=== PATIENT | male | born 1960 | race Caucasian/White ===

== ENCOUNTER 2016-05-22 13:01 | Emergency (ER) ==
[2016-05-22] MEDS ORDERED: MORPHINE 4 MG/ML SYRINGE IM STA (13:15)
[2016-05-22] MEDS ORDERED: ZOFRAN 4 MG/2 ML IM STA (13:15)
[2016-05-22] MEDS ORDERED: DECADRON 4 MG/ML SDV IM STA (13:16)
[2016-05-22] MEDS ORDERED: TORADOL IM STA (13:16)
[2016-05-22] MEDS ORDERED: VALIUM SYRINGE IM STA (13:17)
[2016-05-22 13:19] VITALS: BP 149/88; TEMP 98; BMI 42.3
[2016-05-22 13:47] LABS: BASOPHILS # (AUTO) 0.1 K/uL (0-0.2); BASOPHILS % (AUTO) 1.3 % (0.0-3.0); EOSINOPHILS # (AUTO) 0.4 K/ul (0.0-0.7); EOSINOPHILS % (AUTO) 4.4 % (0.0-7.0); HEMATOCRIT 47.8 % (42.0-52.0); HEMOGLOBIN 14.9 g/dl (14.0-18.0); IMMATURE GRANULOCYTE % (AUTO) 0.8 % (0.0-5.0); LYMPHOCYTES # (AUTO) 2.2 K/uL (0.60-3.4); LYMPHOCYTES % (AUTO) 24.2 (10.0-50.0); MEAN CORPUSCULAR HEMOGLOBIN 28.1 pg (27.0-31.0); MEAN CORPUSCULAR HGB CONC 31.2 (31.8-35.4); MEAN CORPUSCULAR VOLUME 90.2 fl (80.0-94.0); MONOCYTES # (AUTO) 0.6 K/uL (0.4-2.0); MONOCYTES % (AUTO) 6.9 (0-10); NEUTROPHILS # (AUTO) 5.7 K/ul (2.0-6.9); NEUTROPHILS % (AUTO) 62.4; PLATELET COUNT 302 10^3/uL (140-440); WHITE BLOOD COUNT 9.15 K/ul (4.2-10.2)
--- NOTE | 2016-05-22 14:02 | CT ---
EXAM: CT ABDOMEN AND PELVIS HISTORY: Bilateral flank pain, history of kidney stones TECHNIQUE: CT abdomen and pelvis without intravenous contrast. Images were reconstructed using 3 m m section thickness. Coronal reformations were prepared. COMPARISON: 05/08/2016 FINDINGS: Diagnostic limitations exist without including enhanced images. Again noted is prominent sized mild ly fatty liver. Spleen within normal limits. Gallbladder is relatively contracted, grossly unremar kable. Pancreas and adrenal glands appear normal. There is bilateral nephrolithiasis with several small calculi seen in each kidney, largest at about 0.35 cm. Stable mild bilateral nonspecific jalyn nephric fat stranding. There is no hydronephrosis or evidence of ureteral obstruction. Left common iliac vein stent again noted. Mild to moderate atherosclerotic disease of the aorta with no aneury smal caliber. Stomach within normal limits. Normal appendix. Bowel gas pattern is unremarkable. Urinary bladder and prostate are within normal limits. No ascites. Mildly prominent fatty bilateral inguinal joan ls are stable. Bones reveal mild scoliosis and early degenerative disc disease or spinal. Lung bas es reveal a few nodules posteriorly on the right one of which is calcified. These nodules are stabl e since at least 01/30/2014 most likely representing granulomas. No pneumoperitoneum. IMPRESSION: 1. Bilateral nephrolithiasis without current hydronephrosis or ureteral obstruction. Redemonstrati on of stable, nonspecific bilateral perinephric fat stranding which may be chronic for the patient. Correlate clinically for any evidence of renal parenchymal or collecting system infection. 2. Stable prominent sized mildly fatty liver.
[2016-05-22 14:07] LABS: ALBUMIN 3.6 g/dL (3.4-5.0); BILIRUBIN,TOTAL 0.31 mg/dL (0.00-1.20); BUN/CREATININE RATIO 17.16; CALCIUM 9.5 mg/dL (8.2-10.2); CREATININE 1.34 mg/dL (0.60-1.10); TOTAL PROTEIN 7.2 g/dL (6.4-8.2)
--- NOTE | 2016-05-22 14:37 | ED.PDOC ---
General ED Provider: Dr. AYLEEN COLE Chief Complaint: Urinary Problem Stated Complaint: BACK PAIN Time Seen by Physician: 13:10 (HISTORY OF RENAL STONE WITH SAME PRESENTATION) Mode of Arrival: Walk-In Information Source: Patient Exam Limitations: No limitations Primary Care Provider: JEFRY MORALES Nursing and Triage Documentation Reviewed and Agree: Yes Musculoskeletal Complaint Exam - Back Pain Complaint/Exam Mechanism of Injury: Reports: No known trauma Onset/Duration: CHRONIC WAS SEEN FOR SAME ISSUE LAST WEEK Symptoms Are: Still present Timing: Constant Initial Severity: Moderate Current Severity: Moderate Character: Reports: Throbbing, Spasmodic Aggravating: Reports: Movements, Lifting, Bending, Walking Alleviating: Reports: Rest, Position Associated Signs and Symptoms: Reports: Flank pain Related History: Reports: Similar episode Cauda Equina Risk Factors: Reports: None Epidural Abcess Risk Factors: Reports: None Related Surgical History: Reports: None Focal Tenderness: No Paraspinal Muscle Tenderness: No Paraspinal Muscle Spasm: No Scoliosis: No Lordosis: No Kyphosis: No SLR Test: Right Negative, Left Negative Hip Motion Testing Pain: Right Negative, Left Negative Focal Weakness: Present: None Focal Sensory Loss: Present: None Gait: Present: Normal Differential Diagnoses: Renal Colic, Strain, Sprain Review of Systems - Review Of Systems Constitutional: Reports: No symptoms Eyes: Reports: No symptoms Ears, Nose, Mouth, Throat: Reports: No symptoms Respiratory: Reports: No symptoms Cardiac: Reports: No symptoms GI: Reports: No symptoms : Reports: No symptoms Musculoskeletal: Reports: Back pain Skin: Reports: No symptoms Neurological: Reports: No symptoms Endocrine: Reports: No symptoms Hematologic/Lymphatic: Reports: No symptoms All Other Systems: Reviewed and Negative Past Medical History - Past Medical History Previously Healthy: No Endocrine: Reports: DM 2, Dyslipidemia Cardiovascular: Reports: Hypertension Respiratory: Reports: COPD, Asthma Hematological: Reports: None Gastrointestinal: Reports: GERD Genitourinary: Reports: Kidney stones Neuro/Psych: Reports: Anxiety, Depression, Bipolar Disorder Musculoskeletal: Reports: None Cancer: Reports: None Other Pertinent Past Medical History: recent right index finger laceration - Surgical History General Surgical History: Reports: None, Orthopedic (SHOULDER ON EACH SIDE), Hernia Repair, Other (EYE - RIGHT, VASECTOMY) - Family History Family History: Reports: None - Social History Smoking Status: Current every day smoker, Heavy tobacco smoker Hx Substance Use: No Alcohol Screening: None Physical Exam - Physical Exam Appearance: Well-appearing, No pain distress, Well-nourished Eyes: BGODAN, EOMI, Conjunctiva clear ENT: Ears normal, Nose normal, Oropharynx normal Respiratory: Airway patent, Breath sounds clear, Breath sounds equal, Respirations nonlabored Cardiovascular: RRR, Pulses normal, No rub, No murmur GI/: Soft, Nontender, No masses, Bowel sounds normal, No Organomegaly Musculoskeletal: Normal strength, ROM intact, No edema, No calf tenderness Skin: Warm, Dry, Normal color Neurological: Sensation intact, Motor intact, Reflexes intact, Cranial nerves intact, Alert, Oriented Psychiatric: Affect appropriate, Mood appropriate Interpretation - Radiology Interpretation Radiology Interpretation By: Radiologist Radiology Results: No acute changes Critical Care Note - Critical Care Note Total Time (mins): 0 Course - Course Hematology/Chemistry: 05/22/16 13:45 05/22/16 13:45 Orders, Labs, Meds: Lab Review 05/22/16 13:45 WBC 9.15 RBC 5.30 Hgb 14.9 Hct 47.8 MCV 90.2 MCH 28.1 MCHC 31.2 L RDW Coeff of Christiano 13.5 Plt Count 302 Immature Gran % (Auto) 0.8 Neut % (Auto) 62.4 Lymph % (Auto) 24.2 [place] % (Auto) 6.9 Eos % (Auto) 4.4 Baso % (Auto) 1.3 Immature Gran # (Auto) 0.1 Neut # 5.7 Lymph # 2.2 [place] # 0.6 Eos # 0.4 Baso # 0.1 Sodium 138 Potassium 5.0 Chloride 99 Carbon Dioxide 29 Anion Gap 15.0 BUN 23 H Creatinine 1.34 H Estimated GFR (MDRD) 56.00 BUN/Creatinine Ratio 17.16 Glucose 243 H Calcium 9.5 Total Bilirubin 0.31 AST 15 ALT 24 Alkaline Phosphatase 66 Total Protein 7.2 Albumin 3.6 Globulin 3.6 Albumin/Globulin Ratio 1.00 Orders Category Date Time Status CBC W/ AUTO DIFF Stat LAB 05/22/16 13:45 Completed COMPREHENSIVE METABOLIC PANEL Stat LAB 05/22/16 13:45 Completed URINALYSIS C & S IF INDICATED Stat LAB 05/22/16 13:15 Uncollected Dexamethasone 4 mg/ml Inj [Decadron 4 mg/ml Sdv] MEDS 05/22/16 13:16 Discontinued 4 mg IM ONCE STA Diazepam Syringe [Valium Syringe] MEDS 05/22/16 13:17 Discontinued 5 mg IM ONCE STA Morphine Sulfate [Morphine 4 mg/ml Syringe] MEDS 05/22/16 13:15 Discontinued 4 mg IM ONCE STA CT ABD/PEL WO RENAL STONE PROT Stat RADS 05/22/16 13:15 Completed Medications Discontinued Medications Generic Name Dose Route Start Last Admin Trade Name Steven PRN Reason Stop Dose Admin Dexamethasone Sodium Phosphate 4 mg 05/22/16 13:16 05/22/16 13:40 Decadron 4 Mg/Ml Sdv IM 05/22/16 13:17 4 mg ONCE STA Administration Diazepam 5 mg 05/22/16 13:17 05/22/16 13:42 Valium Syringe IM 05/22/16 13:18 5 mg ONCE STA Administration Morphine Sulfate 4 mg 05/22/16 13:15 05/22/16 13:41 Morphine 4 Mg/Ml Syringe IM 05/22/16 13:16 4 mg ONCE STA Administration Vital Signs: Temp Pulse Resp BP Pulse Ox 05/22/16 13:06 98 F 89 20 149/88 H 93 L Departure - Departure Time of Disposition: 14:37 Disposition: HOME SELF-CARE Discharge Problem: Back pain, Calculus of kidney Instructions: Chronic Back Pain (ED), Renal Colic (ED), Kidney Stones (ED), Flank Pain (ED) Condition: Good Pt referred to PMD for follow-up: No Additional Instructions: Please call your Family Physician as soon as possible to schedule a follow-up appointment. Allergies/Adverse Reactions: Allergies codeine Adverse Reaction (Verified 05/22/16 13:03) metformin Adverse Reaction (Verified 05/22/16 13:03) Home Medications: Ambulatory Orders Alprazolam [Xanax] 1 mg PO QID 10/31/13 Aspirin [Aspirin Chewable] 81 mg PO DAILYWM 10/31/13 Benazepril/Hydrochlorothiazide [Benazepril-Hctz 20-12.5 mg Tab] 1 each PO DAILY 10/31/13 Budesonide/Formoterol Fumarate [Symbicort 160-4.5 Mcg Inhaler] 2 inh INH BID Citalopram Hydrobromide [Celexa] 40 mg PO DAILY 10/31/13 Esomeprazole Magnesium [Nexium] 20 mg PO DAILY 10/31/13 Fenofibrate 145 mg PO DAILY 10/31/13 Hydrochlorothiazide 12.5 mg PO DAILY 10/31/13 Insulin Glargine,Hum.rec.anlog [Lantus] 74 unit SQ BEDTIME 10/31/13 Quetiapine Fumarate [Seroquel] 300 mg PO BEDTIME 10/31/13 Trazodone HCl 150 mg PO BEDTIME 10/31/13 Warfarin Sodium [Coumadin] 3 mg PO EVERY OTHER DAY 10/31/13 Tizanidine HCl [Zanaflex] 4 mg PO PRN PRN 01/30/14 Magnesium Oxide [Magnesium] 500 mg PO DAILY 01/07/16 Ibuprofen [Motrin] 800 mg PO Q8H PRN #30 tablet 01/20/16 Albuterol Sulfate [Ventolin Hfa] 2 puff IH TID PRN 05/22/16 Hydrocodone/Acetaminophen [[place]o 10-325 Tablet] 7.5 each PO Q6HR PRN 05/22/16 Warfarin Sodium [Coumadin] 2.5 mg PO EVERY OTHER DAY 05/22/16 Disposition Discussed With: Patient, Family
== END 2016-05-22 14:50 | disposition home or self-care (01) ==
LOC: ED 13:01
DX: N20.0 Calculus of kidney (principal); E11.9 Type 2 diabetes mellitus without complications; E78.5 Hyperlipidemia, unspecified; I10 Essential (primary) hypertension; Z87.442 Personal history of urinary calculi; F17.210 Nicotine dependence, cigarettes, uncomplicated; Z79.01 Long term (current) use of anticoagulants; Z79.899 Other long term (current) drug therapy
CPT/HCPCS: 36415; 74176; 80053; 85025; 96372; 99283

== ENCOUNTER 2016-05-27 07:04 | Outpatient (CLI) | payer OTHER | END 2016-05-27 07:05 | disposition home or self-care (01) | LOC: LAB 07:04 | PROVIDERS: ATTEND Nurse Practitioner | DX: I82.409 Acute embolism and thrombosis of unspecified deep veins of unspecified lower extremity (principal) | CPT/HCPCS: 36415; 85610 ==

== ENCOUNTER 2016-07-02 08:19 | Outpatient (CLI) ==
[2016-07-02 08:55] LABS: PROTHROMBIN TIME 22.5 SEC (9.3-11.0)
== END 2016-07-02 08:20 | disposition home or self-care (01) ==
LOC: LAB 08:19
PROVIDERS: ATTEND Nurse Practitioner
DX: I82.409 Acute embolism and thrombosis of unspecified deep veins of unspecified lower extremity (principal)
CPT/HCPCS: 36415; 85610

== ENCOUNTER 2016-07-29 18:11 | Outpatient (CLI) | END 2016-07-29 18:12 | LOC: AMBL 18:11 | PROVIDERS: ATTEND Emergency Medicine | DX: R55 Syncope and collapse (principal); M25.512 Pain in left shoulder; R07.9 Chest pain, unspecified; M79.662 Pain in left lower leg; W19.XXXA Unspecified fall, initial encounter ==

== ENCOUNTER 2016-08-21 10:13 | Emergency (ER) ==
[2016-08-21 10:26] VITALS: BP 115/67; TEMP 98.1; BMI 37.7
[2016-08-21] MEDS ORDERED: SOLU-MEDROL 125 MG IVP STA (12:27)
[2016-08-21] MEDS ORDERED: DUONEB NEB STA (12:27)
[2016-08-21 12:44] LABS: BASOPHILS # (AUTO) 0.1 K/uL (0-0.2); BASOPHILS % (AUTO) 1.1 % (0.0-3.0); EOSINOPHILS # (AUTO) 0.5 K/ul (0.0-0.7); EOSINOPHILS % (AUTO) 4.3 % (0.0-7.0); HEMATOCRIT 41.4 % (42.0-52.0); HEMOGLOBIN 13.5 g/dl (14.0-18.0); IMMATURE GRANULOCYTE % (AUTO) 0.5 % (0.0-5.0); LYMPHOCYTES # (AUTO) 1.7 K/uL (0.60-3.4); LYMPHOCYTES % (AUTO) 15.3 (10.0-50.0); MEAN CORPUSCULAR HEMOGLOBIN 28.8 pg (27.0-31.0); MEAN CORPUSCULAR HGB CONC 32.6 (31.8-35.4); MEAN CORPUSCULAR VOLUME 88.3 fl (80.0-94.0); MONOCYTES # (AUTO) 0.9 K/uL (0.4-2.0); MONOCYTES % (AUTO) 7.7 (0-10); NEUTROPHILS % (AUTO) 71.1; PLATELET COUNT 318 10^3/uL (140-440); RED BLOOD COUNT 4.69 10^6/ul (4.70-6.10); WHITE BLOOD COUNT 11.24 K/ul (4.2-10.2)
[2016-08-21 12:50] LABS: ABG BASE EXCESS 5 (-2.0-2.0); ABG HCO3 29.8 (22.0-26.0); ABG PCO2 48.9 mmHg (35-45); ABG PH 7.393 (7.35-7.45); ABG TCO2 31 (22.0-28.0)
[2016-08-21 13:20] LABS: ALANINE AMINOTRANSFERASE 16 U/L (12-78); ALBUMIN 3.2 g/dL (3.4-5.0); ALBUMIN/GLOBULIN RATIO 0.84; ALKALINE PHOSPHATASE 58 U/L (50-136); ANION GAP 12.5; ASPARTATE AMINO TRANSFERASE 13 U/L (15-37); BILIRUBIN,TOTAL 0.24 mg/dL (0.00-1.20); BLOOD UREA NITROGEN 14 mg/dL (7-18); BUN/CREATININE RATIO 10.37; CALCIUM 9.5 mg/dL (8.2-10.2); CARBON DIOXIDE 27 mmol/L (21-32); CHLORIDE 100 mmol/L (98-107); CREATINE KINASE 142 U/L; CREATININE 1.35 mg/dL (0.60-1.10); GLUCOSE 247 mg/dL (70-100); POTASSIUM 4.5 mmol/L (3.5-5.1); SODIUM 135 mmol/L (136-145)
--- NOTE | 2016-08-21 13:56 | CT ---
EXAM: CT chest without contrast HISTORY: Shortness of breath COMPARISON: None TECHNIQUE: Serial axial images of the chest were obtained from the lung apices to the upper abdomen without contrast. These were viewed in multiple planes. FINDINGS: The thyroid is normal. The visualized vessels are unremarkable without aneurysm or steno sis. The heart is normal in size without pericardial effusion. There are scattered nonenlarged med iastinal and hilar lymph nodes. Calcified subcarinal and hilar lymph nodes are present. There is no pneumothorax or pleural effusion. There is bilateral lower lobe airway thickening with mild central lobular ground-glass in the right lower lobe and minimally in the left lower lobe. The re is minimal peripheral ground-glass noted in the left upper lobe on image 16. No discrete pulmona ry nodule, consolidation or mass is identified. The airways are patent. The osseous structures demonstrate a left shoulder arthroplasty. The vertebral bodies demonstrate s cattered degenerative disease. The soft tissues in the upper abdomen are unremarkable. IMPRESSION: 1. Mild lower lobe predominant small airways thickening and central lobular ground-glass nodularity consistent with small airways infection. 2. No discrete consolidation, nodule or mass. 3. Sequela of old granulomatous disease. 4. Mild degenerative disease of the spine.
[2016-08-21 14:11] LABS: FLU INTERNAL QC INTERNAL QC VALID; RAPID FLU A NEGATIVE (NEGATIVE); RAPID FLU B NEGATIVE (NEGATIVE)
[2016-08-21] MEDS ORDERED: LIDOCAINE 1 % AMP 5 ML (SUTURES) IM STA ×2 (14:18→14:23)
[2016-08-21] MEDS ORDERED: ROCEPHIN IM STA (14:18)
[2016-08-21] MEDS ORDERED: ROCEPHIN 1 GM in SODIUM CHLORIDE 50 ML IV STA (14:23)
[2016-08-21] MEDS ORDERED: ROCEPHIN ONE (14:26)
[2016-08-21 14:30] LABS: CREATINE KINASE MB 2.9 ng/ml (0.0-3.6)
--- NOTE | 2016-08-21 14:36 | ED.PDOC ---
General ED Provider: Dr. AYLEEN COLE Chief Complaint: Respiratory Complaint Stated Complaint: cough, wheez Time Seen by Physician: 10:30 Mode of Arrival: Wheelchair Information Source: Patient Exam Limitations: No limitations Primary Care Provider: JEFRY MORALES Nursing and Triage Documentation Reviewed and Agree: Yes Respiratory Complaint Exam - Respiratory Complaint/Exam Onset/Duration: 1 week smokes heavily Symptoms Are: Still present Timing: Intermittent Initial Severity: Moderate Current Severity: Moderate Location: Throat, Chest Character: Reports: Non-productive cough Aggravating: Reports: None Alleviating: Reports: Bronchodilators, Spontaneous resolution Associated Signs and Symptoms: Reports: Wheezing, Sore throat Related History: Reports: Similar episode History of Healthcare-Acquired Pneumonia: No Related Surgical History: Reports: None Pulmonary Embolism Risk Factors: Smoking Cardiac Risk Factors: Reports: CAD, Elevated lipids, Diabetes, Hypertension Pseudomonas Risk Factors: Reports: None Tuberculosis Risk Factors: Reports: None Status Asthmaticus Risk Factors: Reports: None Home Oxygen Use: No Recent Stress Test: No Recent Echo/LV Function: No Current Antibiotic Use: No Current Asthma Medication Use: No Respiratory Distress: None Inadequate Respiratory Effort: No Dysphagia Present: No Stridor Present: No JVD Present: No Accessory Muscle Use: No Retractions: Not Present Diminished Breath Sounds: No Sinus Tenderness: None Grunting Respirations: No Kussmaul Respirations: No Differential Diagnoses: Pneumonia, Bronchitis Review of Systems - Review Of Systems Constitutional: Reports: Malaise, Weakness Eyes: Reports: No symptoms Ears, Nose, Mouth, Throat: Reports: No symptoms Respiratory: Reports: Cough, Wheezing Cardiac: Reports: No symptoms GI: Reports: No symptoms : Reports: No symptoms Musculoskeletal: Reports: No symptoms Skin: Reports: No symptoms Neurological: Reports: No symptoms Endocrine: Reports: No symptoms Hematologic/Lymphatic: Reports: No symptoms All Other Systems: Reviewed and Negative Past Medical History - Past Medical History Previously Healthy: No Endocrine: Reports: DM 2, Dyslipidemia Cardiovascular: Reports: Hypertension Respiratory: Reports: COPD, Asthma Hematological: Reports: None Gastrointestinal: Reports: GERD Genitourinary: Reports: Kidney stones Neuro/Psych: Reports: Anxiety, Depression, Bipolar Disorder Musculoskeletal: Reports: None Cancer: Reports: None Other Pertinent Past Medical History: recent right index finger laceration - Surgical History General Surgical History: Reports: None, Orthopedic (SHOULDER ON EACH SIDE), Hernia Repair, Other (EYE - RIGHT, VASECTOMY) - Family History Family History: Reports: None - Social History Smoking Status: Current every day smoker, Heavy tobacco smoker Hx Substance Use: No Alcohol Screening: None Physical Exam - Physical Exam Appearance: Well-appearing, No pain distress, Well-nourished Eyes: BOGDAN, EOMI, Conjunctiva clear ENT: Ears normal, Nose normal, Oropharynx normal Respiratory: Wheezes Cardiovascular: RRR, Pulses normal, No rub, No murmur GI/: Soft, Nontender, No masses, Bowel sounds normal, No Organomegaly Musculoskeletal: Normal strength, ROM intact, No edema, No calf tenderness Skin: Warm, Dry, Normal color Neurological: Sensation intact, Motor intact, Reflexes intact, Cranial nerves intact, Alert, Oriented Psychiatric: Affect appropriate, Mood appropriate Interpretation - Radiology Interpretation Radiology Interpretation By: Radiologist Radiology Results: No acute changes Critical Care Note - Critical Care Note Total Time (mins): 0 Course - Course Hematology/Chemistry: 08/21/16 12:35 08/21/16 12:35 Orders, Labs, Meds: Lab Review 08/21/16 08/21/16 08/21/16 12:35 12:40 13:00 WBC 11.24 H RBC 4.69 L Hgb 13.5 L Hct 41.4 L MCV 88.3 MCH 28.8 MCHC 32.6 RDW Coeff of Christiano 13.6 Plt Count 318 Immature Gran % (Auto) 0.5 Neut % (Auto) 71.1 Lymph % (Auto) 15.3 [place] % (Auto) 7.7 Eos % (Auto) 4.3 Baso % (Auto) 1.1 Immature Gran # (Auto) 0.1 Neut # 8.0 H Lymph # 1.7 [place] # 0.9 Eos # 0.5 Baso # 0.1 D-Dimer (Manual) 416.13 Puncture Site R rad O2 Saturation 94.0 L ABG pH 7.393 ABG pCO2 48.9 H ABG pO2 74.0 L ABG HCO3 29.8 H ABG Total CO2 31 H ABG Base Excess 5 H Florentin Test + FiO2 % 21.0 Sodium 135 L Potassium 4.5 Chloride 100 Carbon Dioxide 27 Anion Gap 12.5 BUN 14 Creatinine 1.35 H Estimated GFR (MDRD) 55.00 BUN/Creatinine Ratio 10.37 Glucose 247 H Lactic Acid Calcium 9.5 Total Bilirubin 0.24 AST 13 L ALT 16 Alkaline Phosphatase 58 Total Creatine Kinase 142 CK-MB (CK-2) 2.9 CK-MB (CK-2) % 2.17699 Troponin I < 0.0100 Total Protein 7.0 Albumin 3.2 L Globulin 3.8 Albumin/Globulin Ratio 0.84 Influenza A (Rapid) Negative Influenza B (Rapid) Negative 08/21/16 13:15 WBC RBC Hgb Hct MCV MCH MCHC RDW Coeff of Christiano Plt Count Immature Gran % (Auto) Neut % (Auto) Lymph % (Auto) [place] % (Auto) Eos % (Auto) Baso % (Auto) Immature Gran # (Auto) Neut # Lymph # [place] # Eos # Baso # D-Dimer (Manual) Puncture Site O2 Saturation ABG pH ABG pCO2 ABG pO2 ABG HCO3 ABG Total CO2 ABG Base Excess Florentin Test FiO2 % Sodium Potassium Chloride Carbon Dioxide Anion Gap BUN Creatinine Estimated GFR (MDRD) BUN/Creatinine Ratio Glucose Lactic Acid 8.8 Calcium Total Bilirubin AST ALT Alkaline Phosphatase Total Creatine Kinase CK-MB (CK-2) CK-MB (CK-2) % Troponin I Total Protein Albumin Globulin Albumin/Globulin Ratio Influenza A (Rapid) Influenza B (Rapid) Orders Category Date Time Status ABG DRAW REQUEST Stat CARDIO 08/21/16 12:26 Completed EKG-(ED ONLY) Stat CARDIO 08/21/16 12:27 Completed NEBULIZER TREATMENT Stat CARDIO 08/21/16 12:28 Completed ED IV/MEDIPORT/POWERPORT .ONCE EMERGENCY 08/21/16 12:27 Active ABG Stat LAB 08/21/16 12:40 Completed BLOOD CULTURE Stat LAB 08/21/16 13:15 Received CBC W/ AUTO DIFF Stat LAB 08/21/16 12:35 Completed COMPREHENSIVE METABOLIC PANEL Stat LAB 08/21/16 12:35 Results CREATINE KINASE Stat LAB 08/21/16 12:35 Results D-DIMER Stat LAB 08/21/16 12:35 Completed LACTIC ACID Stat LAB 08/21/16 13:15 Completed MOLECULAR GROUP A STREP Stat LAB 08/21/16 13:00 Results RAPID FLU A/B Stat LAB 08/21/16 13:00 Completed STREP SCREEN Stat LAB 08/21/16 13:00 Results TROPONIN I Stat LAB 08/21/16 12:35 Results 0.9 % Sodium Chloride [Saline Flush] MEDS 08/21/16 12:27 Active 1 syr IVF PRN PRN Ceftriaxone Sodium [Rocephin] MEDS 08/21/16 14:26 Discontinued 1 gm .ROUTE .STK-MED ONE Ceftriaxone Sodium [Rocephin] 1 gm MEDS 08/21/16 14:23 Ordered 0.9 % Sodium Chloride [Sodium Chloride] 50 ml IV ONCE Ipratropium/Albuterol Neb [Duoneb] MEDS 08/21/16 12:27 Discontinued 1 vial NEB ONCE STA Methylprednisolone Sod Succ/Pf [Solu-Medrol 125 mg] MEDS 08/21/16 12:27 Discontinued [address]P ON[address] CHEST W/O CONTRAST Stat RADS 08/21/16 12:25 Completed Medications Generic Name Dose Route Start Last Admin Trade Name Freq PRN Reason Stop Dose Admin Ceftriaxone Sodium 1 gm/ 50 mls @ 75 mls/hr 08/21/16 14:23 Sodium Chloride IV 08/21/16 15:02 ONCE STA Sodium Chloride 1 syr 08/21/16 12:27 08/21/16 13:36 Saline Flush IVF 1 syr PRN PRN Administration To flush IV Discontinued Medications Generic Name Dose Route Start Last Admin Trade Name Freq PRN Reason Stop Dose Admin Albuterol/Ipratropium 1 vial 08/21/16 12:27 08/21/16 12:42 Duoneb NEB 08/21/16 12:28 1 vial ONCE STA Administration Methylprednisolone Sodium Succinate 125 mg 08/21/16 12:27 08/21/16 13:33 Solu-Medrol 125 Mg IVP 08/21/16 12:28 125 mg ONCE STA Administration Vital Signs: Temp Pulse Resp BP Pulse Ox 08/21/16 10:21 98.1 F 85 20 115/67 85 L Departure - Departure Time of Disposition: 14:36 Disposition: HOME SELF-CARE Discharge Problem: Bronchitis Chronic obstructive pulmonary disease Qualifiers: COPD type: unspecified COPD Qualifier Code: (J44.9) Chronic obstructive pulmonary disease, unspecified Instructions: COPD (Chronic Obstructive Pulmonary Disease) (ED), Acute Bronchitis (ED), Wheezing (ED), Bronchospasm (ED), How Your Lungs Work (ED) Condition: Good Pt referred to PMD for follow-up: No Additional Instructions: Please call your Family Physician as soon as possible to schedule a follow-up appointment. Prescriptions: Amoxicillin 500 mg PO Q6HR #30 tablet Amoxicillin 500 mg PO Q8HR #21 tablet Prednisone 40 mg PO DAILYWM #7 tablet Allergies/Adverse Reactions: Allergies codeine Adverse Reaction (Verified 05/22/16 13:03) guaifenesin [From Mucinex] Adverse Reaction (Verified 08/21/16 10:17) metformin Adverse Reaction (Verified 05/22/16 13:03) Home Medications: Ambulatory Orders Alprazolam [Xanax] 1 mg PO QID 10/31/13 Aspirin [Aspirin Chewable] 81 mg PO DAILYWM 10/31/13 Budesonide/Formoterol Fumarate [Symbicort 160-4.5 Mcg Inhaler] 2 inh INH BID Citalopram Hydrobromide [Celexa] 40 mg PO DAILY 10/31/13 Esomeprazole Magnesium [Nexium] 20 mg PO DAILY 10/31/13 Fenofibrate 145 mg PO DAILY 10/31/13 Hydrochlorothiazide 12.5 mg PO DAILY 10/31/13 Insulin Glargine,Hum.rec.anlog [Lantus] 74 unit SQ BEDTIME 10/31/13 Quetiapine Fumarate [Seroquel] 300 mg PO BEDTIME 10/31/13 Trazodone HCl 150 mg PO BEDTIME 10/31/13 Warfarin Sodium [Coumadin] 3 mg PO EVERY OTHER DAY 10/31/13 Tizanidine HCl [Zanaflex] 4 mg PO PRN PRN 01/30/14 Magnesium Oxide [Magnesium] 500 mg PO DAILY 01/07/16 Ibuprofen [Motrin] 800 mg PO Q8H PRN #30 tablet 01/20/16 Albuterol Sulfate [Ventolin Hfa] 2 puff IH TID PRN 05/22/16 Hydrocodone/Acetaminophen [[place] 10-325 Tablet] 7.5 each PO Q6HR PRN 05/22/16 Warfarin Sodium [Coumadin] 2.5 mg PO EVERY OTHER DAY 05/22/16 Amoxicillin 500 mg PO Q6HR #30 tablet 08/21/16 Amoxicillin 500 mg PO Q8HR #21 tablet 08/21/16 Benazepril HCl 40 mg PO DAILY 08/21/16 Prednisone 40 mg PO DAILYWM #7 tablet 08/21/16 Vitamin E 2,000 unit PO DAILY 08/21/16
== END 2016-08-21 15:15 | disposition home or self-care (01) ==
LOC: ED 10:13
DX: J44.0 Chronic obstructive pulmonary disease with (acute) lower respiratory infection (principal); J20.9 Acute bronchitis, unspecified; F17.210 Nicotine dependence, cigarettes, uncomplicated; I25.10 Atherosclerotic heart disease of native coronary artery without angina pectoris; E78.5 Hyperlipidemia, unspecified; E11.9 Type 2 diabetes mellitus without complications; I10 Essential (primary) hypertension; Z79.01 Long term (current) use of anticoagulants; Z79.899 Other long term (current) drug therapy
CPT/HCPCS: 36415; 80053; 82550; 82553; 82803; 83605; 84484; 85025; 85379; 87040; 87651; 87804; 87880; 93005; 93010; 94640; 96365; 96375; 99283

== ENCOUNTER 2016-08-25 09:50 | Outpatient (CLI) | END 2016-08-25 09:51 | disposition home or self-care (01) | LOC: LAB 09:50 | PROVIDERS: ATTEND Nurse Practitioner | DX: Z51.81 Encounter for therapeutic drug level monitoring (principal); Z79.01 Long term (current) use of anticoagulants; I82.409 Acute embolism and thrombosis of unspecified deep veins of unspecified lower extremity | CPT/HCPCS: 36415; 85610 ==

== ENCOUNTER 2016-11-11 06:49 | Outpatient (CLI) | payer OTHER ==
[2016-11-11 07:24] LABS: PROTHROMBIN TIME 24.3 SEC (9.3-11.0)
== END 2016-11-11 06:50 | disposition home or self-care (01) ==
LOC: LAB 06:49
PROVIDERS: ATTEND Nurse Practitioner
DX: Z51.81 Encounter for therapeutic drug level monitoring (principal); Z79.01 Long term (current) use of anticoagulants; E11.40 Type 2 diabetes mellitus with diabetic neuropathy, unspecified; I82.409 Acute embolism and thrombosis of unspecified deep veins of unspecified lower extremity
CPT/HCPCS: 36415; 83036; 85610

== ENCOUNTER 2016-12-03 11:50 | Outpatient (CLI) ==
[2016-12-03 12:20] LABS: PROTHROMBIN TIME 29.4 SEC (9.3-11.0)
== END 2016-12-03 11:51 | disposition home or self-care (01) ==
LOC: LAB 11:50
PROVIDERS: ATTEND Nurse Practitioner
DX: Z51.81 Encounter for therapeutic drug level monitoring (principal); Z79.01 Long term (current) use of anticoagulants; I82.409 Acute embolism and thrombosis of unspecified deep veins of unspecified lower extremity
CPT/HCPCS: 36415; 85610

== ENCOUNTER 2017-02-02 09:57 | Outpatient (CLI) | payer OTHER ==
[2017-02-02 10:33] LABS: PROTHROMBIN TIME 18.2 SEC (9.3-11.0)
== END 2017-02-02 09:58 | disposition home or self-care (01) ==
LOC: LAB 09:57
PROVIDERS: ATTEND Nurse Practitioner
DX: Z51.81 Encounter for therapeutic drug level monitoring (principal); Z79.01 Long term (current) use of anticoagulants; I82.409 Acute embolism and thrombosis of unspecified deep veins of unspecified lower extremity
CPT/HCPCS: 36415; 85610

== ENCOUNTER 2017-02-14 08:54 | Emergency (ER) | payer OTHER ==
[2017-02-14 08:58] VITALS: BP 162/75; TEMP 96.9; BMI 40.6
[2017-02-14] MEDS ORDERED: EPINEPHRINE 1:1,000 AMP ONE (09:00)
[2017-02-14] MEDS ORDERED: BENADRYL ONE (09:05)
[2017-02-14] MEDS ORDERED: ADRENALIN 1:1000 SDV SUBCUT STA (09:07)
[2017-02-14] MEDS ORDERED: BENADRYL IM STA (09:08)
--- NOTE | 2017-02-14 09:12 | ED.PDOC ---
General ED Provider: Dr. ELISEO KNOWLES Chief Complaint: Allergic Reaction Stated Complaint: Patient stung by bee on right index finger approximately an hour ago. Now having difficulty breathing because tongue is swelling up. No chest pain. No other symptoms. PMH of similar sx after bee sting 20 years ago. Time Seen by Physician: 09:00 Mode of Arrival: Wheelchair Information Source: Patient Exam Limitations: No limitations Primary Care Provider: LALI WARD Nursing and Triage Documentation Reviewed and Agree: Yes Environmental Complaint Exam - Allergic Reaction Complaint/Exam Symptoms Are: Still present Timing: Constant Initial Severity: Mild Current Severity: Moderate Location: Discrete (tongue swelling) Character: Present: Swelling Aggravating: Reports: None Alleviating: Reports: None Associated Signs and Symptoms: Reports: Difficulty breathing Possible Reaction To: Reports: Insect Related History: Similar episode (stung by bee 20 years ago with same symptoms) Diphenhydramine Prior to Arrival: No Epinephrine Auto Injector Prior to Arrival: No Respiratory Distress: None Differential Diagnoses: Other (allergic reaction to bee sting) Review of Systems - Review Of Systems Constitutional: Reports: No symptoms Eyes: Reports: No symptoms Ears, Nose, Mouth, Throat: Reports: Mouth swelling (specifically tongue swelling ) Respiratory: Reports: Other (feels like it's hard to breathe around his tongue) Cardiac: Reports: No symptoms GI: Reports: No symptoms : Reports: No symptoms Musculoskeletal: Reports: No symptoms Skin: Reports: No symptoms, Other (right index finger distal phalanx point soreness at sting site) Neurological: Reports: No symptoms All Other Systems: Reviewed and Negative Past Medical History - Past Medical History Previously Healthy: No Endocrine: Reports: DM 2, Dyslipidemia Cardiovascular: Reports: Hypertension Respiratory: Reports: COPD, Asthma Hematological: Reports: None Gastrointestinal: Reports: GERD Genitourinary: Reports: Kidney stones Neuro/Psych: Reports: Anxiety, Depression, Bipolar Disorder Musculoskeletal: Reports: None Cancer: Reports: None Other Pertinent Past Medical History: recent right index finger laceration - Surgical History General Surgical History: Reports: Orthopedic (SHOULDER ON EACH SIDE, and numerous other surgeries related to trauma 20+ years ago), Hernia Repair, Other (EYE - RIGHT, VASECTOMY, heart cath (negative findings)) - Family History Family History: Reports: Unknown - Social History Smoking Status: Current every day smoker, Heavy tobacco smoker Hx Substance Use: No Alcohol Screening: None Lives: Alone - Immunizations Tetanus Shot up to Date: No Influenza Vaccine within 12 Months: No Pneumococcal Vaccine up to Date: No Physical Exam - Physical Exam Appearance: Well-appearing, Well-nourished, Obese Ill-appearing: None Pain Distress: None Eyes: BOGDAN, EOMI, Conjunctiva clear ENT: Ears normal, Nose normal, Oropharynx normal (tongue may be slightly enlarged but not obstructive yet) Neck: Supple Respiratory: Airway patent, Breath sounds clear, Breath sounds equal, Respirations nonlabored Cardiovascular: RRR, Pulses normal, No rub, No murmur GI/: Soft, Nontender, No masses, Bowel sounds normal, No Organomegaly Musculoskeletal: Normal strength, ROM intact, No edema, No calf tenderness Skin: Warm, Dry, Normal color Neurological: Sensation intact, Motor intact, Reflexes intact, Cranial nerves intact, Alert, Oriented Psychiatric: Affect appropriate, Mood appropriate Critical Care Note - Critical Care Note Total Time (mins): 0 Course - Course Orders, Labs, Meds: Orders Category Date Time Status Diphenhydramine Inj [Benadryl] MEDS 02/14/17 09:05 Discontinued 50 mg .ROUTE .STK-MED ONE Diphenhydramine Inj [Benadryl] MEDS 02/14/17 09:08 Stat 50 mg IM ONCE STA Epinephrine Amp [Epinephrine 1:1,000 Amp] MEDS 02/14/17 09:00 Discontinued 1 mg .ROUTE .STK-MED ONE Epinephrine [Adrenalin 1:1000 Sdv] MEDS 02/14/17 09:07 Stat 0.3 mg SUBCUT ONCE STA Medications Generic Name Dose Route Start Last Admin Trade Name Steven PRN Reason Stop Dose Admin Diphenhydramine HCl 50 mg 02/14/17 09:08 Benadryl IM 02/14/17 09:09 ONCE STA Epinephrine HCl 0.3 mg 02/14/17 09:07 Adrenalin 1:1000 Sdv SUBCUT 02/14/17 09:08 ONCE STA Vital Signs: Temp Pulse Resp BP Pulse Ox 02/14/17 08:54 96.9 F L 81 28 H 162/75 H 97 Departure - Departure Time of Disposition: 09:25 Disposition: HOME SELF-CARE Discharge Problem: Allergic reaction to bee sting Instructions: General Allergic Reaction (ED) Condition: Good Pt referred to PMD for follow-up: No (If symptoms haven't resolved within 24 hours or worsen, see doctor) Additional Instructions: OTC Benadryl 50 mg every 4 to 6 hours as needed for symptoms. Allergies/Adverse Reactions: Allergies codeine Adverse Reaction (Verified 02/14/17 09:12) guaifenesin [From Mucinex] Adverse Reaction (Verified 02/14/17 09:12) metformin Adverse Reaction (Verified 02/14/17 09:12) Home Medications: Ambulatory Orders Alprazolam [Xanax] 1 mg PO QID 10/31/13 Aspirin [Aspirin Chewable] 81 mg PO DAILYWM 10/31/13 Budesonide/Formoterol Fumarate [Symbicort 160-4.5 Mcg Inhaler] 2 inh INH BID Citalopram Hydrobromide [Celexa] 40 mg PO DAILY 10/31/13 Esomeprazole Magnesium [Nexium] 20 mg PO DAILY 10/31/13 Fenofibrate 145 mg PO DAILY 10/31/13 Hydrochlorothiazide 12.5 mg PO DAILY 10/31/13 Insulin Glargine,Hum.rec.anlog [Lantus] 74 unit SQ BEDTIME 10/31/13 Quetiapine Fumarate [Seroquel] 300 mg PO BEDTIME 10/31/13 Trazodone HCl 150 mg PO BEDTIME 10/31/13 Warfarin Sodium [Coumadin] 3 mg PO EVERY OTHER DAY 10/31/13 Tizanidine HCl [Zanaflex] 4 mg PO PRN PRN 01/30/14 Magnesium Oxide [Magnesium] 500 mg PO DAILY 01/07/16 Ibuprofen [Motrin] 800 mg PO Q8H PRN #30 tablet 01/20/16 Albuterol Sulfate [Ventolin Hfa] 2 puff IH TID PRN 05/22/16 Hydrocodone/Acetaminophen [[place] 10-325 Tablet] 7.5 each PO Q6HR PRN 05/22/16 Warfarin Sodium [Coumadin] 2.5 mg PO EVERY OTHER DAY 05/22/16 Benazepril HCl 40 mg PO DAILY 08/21/16 Vitamin E 2,000 unit PO DAILY 08/21/16 Epinephrine [Epipen 2-Sergio] 0.3 mg IM ONCE PRN #1 ml 02/14/17 Disposition Discussed With: Patient
== END 2017-02-14 09:31 | disposition home or self-care (01) ==
LOC: ED 08:54
DX: T63.441A Toxic effect of venom of bees, accidental (unintentional), initial encounter (principal); R06.9 Unspecified abnormalities of breathing; F17.210 Nicotine dependence, cigarettes, uncomplicated
CPT/HCPCS: 96372; 99282

== ENCOUNTER 2017-02-22 19:40 | Emergency (ER) | payer OTHER ==
[2017-02-22 19:43] VITALS: BP 134/82; TEMP 98.9; BMI 38.0
--- NOTE | 2017-02-22 19:52 | ED.PDOC ---
General ED Provider: Dr. SAMUEL TAYLOR Chief Complaint: Bite Stated Complaint: Patient stung by wasp on left forearm. it is swollen red, Time Seen by Physician: 19:50 Mode of Arrival: Walk-In Information Source: Patient Primary Care Provider: LALI WARD Nursing and Triage Documentation Reviewed and Agree: Yes Environmental Complaint Exam - Allergic Reaction Complaint/Exam Symptoms Are: Still present Timing: Constant Initial Severity: Mild Current Severity: Mild Location: Discrete Character: Present: Swelling, Pruritis Aggravating: Reports: None Alleviating: Reports: None Associated Signs and Symptoms: Reports: Difficulty breathing. Denies: Cough, Wheezing, Chest pain, Hoarseness, Throat tightening, Throat swelling, Rash, Abdominal pain, Diaphoresis, Lightheadedness, Syncope, Nausea, Vomiting Possible Reaction To: Reports: Insect (wasp\) Related History: Similar episode Diphenhydramine Prior to Arrival: No Epinephrine Auto Injector Prior to Arrival: No Respiratory Distress: None Differential Diagnoses: Local Allergic Reaction Review of Systems - Review Of Systems Constitutional: Reports: No symptoms Eyes: Reports: No symptoms Ears, Nose, Mouth, Throat: Reports: No symptoms Respiratory: Reports: Short of air Cardiac: Reports: No symptoms GI: Reports: No symptoms : Reports: No symptoms Musculoskeletal: Reports: No symptoms Skin: Reports: No symptoms Neurological: Reports: No symptoms Endocrine: Reports: No symptoms Hematologic/Lymphatic: Reports: No symptoms All Other Systems: Reviewed and Negative Past Medical History - Past Medical History Previously Healthy: No Endocrine: Reports: DM 2, Dyslipidemia Cardiovascular: Reports: Hypertension Respiratory: Reports: COPD, Asthma Hematological: Reports: None Gastrointestinal: Reports: GERD Genitourinary: Reports: Kidney stones Neuro/Psych: Reports: Anxiety, Depression, Bipolar Disorder Musculoskeletal: Reports: None Cancer: Reports: None Other Pertinent Past Medical History: recent right index finger laceration - Surgical History General Surgical History: Reports: Orthopedic (SHOULDER ON EACH SIDE, and numerous other surgeries related to trauma 20+ years ago), Hernia Repair, Other (EYE - RIGHT, VASECTOMY, heart cath (negative findings)) - Family History Family History: Reports: Unknown - Social History Smoking Status: Current every day smoker, Heavy tobacco smoker Smoking Cessation Counseling Time: > 10 min Hx Substance Use: No Alcohol Screening: None - Immunizations Tetanus Shot up to Date: No Influenza Vaccine within 12 Months: No Pneumococcal Vaccine up to Date: No Physical Exam - Physical Exam Appearance: Ill-appearing, Obese Eyes: BOGDAN, EOMI, Conjunctiva clear ENT: Ears normal, Nose normal, Oropharynx normal Respiratory: Airway patent, Breath sounds clear, Breath sounds equal, Respirations nonlabored Cardiovascular: RRR, Pulses normal, No rub, No murmur GI/: Soft, Nontender, No masses, Bowel sounds normal, No Organomegaly Musculoskeletal: Normal strength, ROM intact, No edema, No calf tenderness Skin: Warm, Dry, Normal color Neurological: Sensation intact, Motor intact, Reflexes intact, Cranial nerves intact, Alert, Oriented Psychiatric: Affect appropriate, Mood appropriate Re-Evaluation - Re-Evaluation Time of Re-Evaluation: 20:16 Status: Improved Critical Care Note - Critical Care Note Total Time (mins): 30 Course - Course Orders, Labs, Meds: Orders Category Date Time Status Dexamethasone 4 mg/ml Inj [Decadron 4 mg/ml Sdv] MEDS 02/22/17 19:49 Discontinued 4 mg IM ONCE STA Medications Discontinued Medications Generic Name Dose Route Start Last Admin Trade Name Steven PRN Reason Stop Dose Admin Dexamethasone Sodium Phosphate 4 mg 02/22/17 19:49 02/22/17 19:54 Decadron 4 Mg/Ml Sdv IM 02/22/17 19:50 4 mg ONCE STA Administration Vital Signs: Temp Pulse Resp BP Pulse Ox 02/22/17 19:41 98.9 F 90 20 134/82 92 L Departure - Departure Time of Disposition: 20:16 Disposition: HOME SELF-CARE Discharge Problem: Wasp sting Qualifiers: Encounter type: initial encounter Injury intent: accidental or unintentional Qualified Code(s): T63.461A - Toxic effect of venom of wasps, accidental ( unintentional), initial encounter Instructions: Insect Bite or Sting (ED) Condition: Good Pt referred to PMD for follow-up: Yes Additional Instructions: Avoid exposure to insects, full sleeves when working out side Prescriptions: Prednisone 10 mg PO BIDWM #14 tablet Allergies/Adverse Reactions: Allergies codeine Adverse Reaction (Verified 02/22/17 19:44) guaifenesin [From Mucinex] Adverse Reaction (Verified 02/22/17 19:44) metformin Adverse Reaction (Verified 02/22/17 19:44) Home Medications: Ambulatory Orders Alprazolam [Xanax] 1 mg PO QID 10/31/13 Aspirin [Aspirin Chewable] 81 mg PO DAILYWM 10/31/13 Budesonide/Formoterol Fumarate [Symbicort 160-4.5 Mcg Inhaler] 2 inh INH BID Citalopram Hydrobromide [Celexa] 40 mg PO DAILY 10/31/13 Esomeprazole Magnesium [Nexium] 20 mg PO DAILY 10/31/13 Fenofibrate 145 mg PO DAILY 10/31/13 Hydrochlorothiazide 12.5 mg PO DAILY 10/31/13 Insulin Glargine,Hum.rec.anlog [Lantus] 74 unit SQ BEDTIME 10/31/13 Quetiapine Fumarate [Seroquel] 300 mg PO BEDTIME 10/31/13 Trazodone HCl 150 mg PO BEDTIME 10/31/13 Warfarin Sodium [Coumadin] 3 mg PO EVERY OTHER DAY 10/31/13 Tizanidine HCl [Zanaflex] 4 mg PO PRN PRN 01/30/14 Magnesium Oxide [Magnesium] 500 mg PO DAILY 01/07/16 Ibuprofen [Motrin] 800 mg PO Q8H PRN #30 tablet 01/20/16 Albuterol Sulfate [Ventolin Hfa] 2 puff IH TID PRN 05/22/16 Hydrocodone/Acetaminophen [[place] 10-325 Tablet] 7.5 each PO Q6HR PRN 05/22/16 Warfarin Sodium [Coumadin] 2.5 mg PO EVERY OTHER DAY 05/22/16 Benazepril HCl 40 mg PO DAILY 08/21/16 Vitamin E 2,000 unit PO DAILY 08/21/16 Epinephrine [Epipen 2-Sergio] 0.3 mg IM ONCE PRN #1 ml 02/14/17 Prednisone 10 mg PO BIDWM #14 tablet 02/22/17 Disposition Discussed With: Patient
[2017-02-22] MEDS: DECADRON 4 MG/ML SDV IM STA (19:54)
== END 2017-02-22 20:20 | disposition home or self-care (01) ==
LOC: ED 19:40
DX: T63.461A Toxic effect of venom of wasps, accidental (unintentional), initial encounter (principal); R06.02 Shortness of breath; F17.210 Nicotine dependence, cigarettes, uncomplicated; Z79.899 Other long term (current) drug therapy
CPT/HCPCS: 96372; 99283

== ENCOUNTER 2017-04-07 11:42 | Outpatient (CLI) | END 2017-04-07 11:43 | disposition left against medical advice (07) | LOC: AMBL 11:42 | PROVIDERS: ATTEND Internal Medicine | DX: M79.606 Pain in leg, unspecified (principal); W19.XXXA Unspecified fall, initial encounter ==

== ENCOUNTER 2017-04-19 11:03 | Emergency (ER) ==
[2017-04-19 11:09] VITALS: BP 119/81; TEMP 98.1; BMI 35.9
[2017-04-19] MEDS ORDERED: PREDNISONE PO STA (12:31)
[2017-04-19] MEDS ORDERED: AMOXIL PO STA (12:32)
[2017-04-19] MEDS ORDERED: DUONEB NEB STA (12:33)
[2017-04-19 12:44] LABS: BILIRUBIN,URINE Negative (NEGATIVE); KETONES,URINE Negative (NEGATIVE); LEUKOCYTE ESTERASE ,URINE Trace (NEGATIVE); NITRITE,URINE Negative (NEGATIVE); PROTEIN,URINE 2+ (NEGATIVE); URINE, BLOOD Trace-lysed (NEGATIVE)
[2017-04-19 12:46] LABS: BASOPHILS # (AUTO) 0.1 K/uL (0-0.2); BASOPHILS % (AUTO) 1.2 % (0.0-3.0); EOSINOPHILS # (AUTO) 0.5 K/ul (0.0-0.7); EOSINOPHILS % (AUTO) 4.7 % (0.0-7.0); HEMATOCRIT 40.4 % (42.0-52.0); HEMOGLOBIN 13.7 g/dl (14.0-18.0); IMMATURE GRANULOCYTE % (AUTO) 0.7 % (0.0-5.0); LYMPHOCYTES # (AUTO) 2.3 K/uL (0.60-3.4); LYMPHOCYTES % (AUTO) 21.5 (10.0-50.0); MEAN CORPUSCULAR HEMOGLOBIN 29.9 pg (27.0-31.0); MEAN CORPUSCULAR HGB CONC 33.9 (31.8-35.4); MEAN CORPUSCULAR VOLUME 88.2 fl (80.0-94.0); MONOCYTES # (AUTO) 0.9 K/uL (0.4-2.0); MONOCYTES % (AUTO) 8.9 (0-10); NEUTROPHILS # (AUTO) 6.6 K/ul (2.0-6.9); PLATELET COUNT 358 10^3/uL (140-440); RED BLOOD COUNT 4.58 10^6/ul (4.70-6.10)
[2017-04-19 12:48] LABS: ADD URINE MICROSCOPIC YES
[2017-04-19 13:08] LABS: ALBUMIN 3.4 g/dL (3.4-5.0); ALBUMIN/GLOBULIN RATIO 0.92; BILIRUBIN,TOTAL 0.4 mg/dL (0.00-1.20); BUN/CREATININE RATIO 10.73; CALCIUM 9.5 mg/dL (8.2-10.2); CREATININE 1.49 mg/dL (0.60-1.10); TOTAL PROTEIN 7.1 g/dL (6.4-8.2)
--- NOTE | 2017-04-19 13:57 | CT ---
EXAM: CT of the chest without contrast History: Cough. Comparison: Chest CT 08/21/2016 Technique: Multiplanar CT images through the thorax were obtained without the administration of IV c ontrast Findings: Heart size is normal. No pericardial effusion. Coronary calcifications. Calcified granu velma again seen within the thorax. No pathologically enlarged thoracic lymph nodes. No consolidatio n. No pleural fluid and no pneumothorax. No suspicious lung masses or lung nodules. Mild diffuse b ronchial wall thickening and subtle upper lobe predominant centrilobular micronodules. Within the visualized upper abdomen, the liver is fatty. Punctate 1 mm left renal calculi. No acute osseous abnormalities. Impression: 1. Mild diffuse bronchial wall thickening and subtle upper lobe predominant centrilobular micronodul es most compatible with infectious/inflammatory process such as bronchiolitis. 2. Coronary artery disease. 3. Hepatic steatosis
--- NOTE | 2017-04-19 14:03 | CT ---
EXAM: CT LUMBAR SPINE HISTORY: Back pain TECHNIQUE: CT lumbar spine without contrast. 3-mm axial sections. Coronal and sagittal reformation s. COMPARISON: 05/22/2016 CT abdomen pelvis FINDINGS: No acute fracture or subluxation is identified. Normal vertebral body alignment and overall height. There is mild scoliosis convex to the right. Anterior and lateral osteophytic spurring is noted. Disc space gas is noted at multiple levels within the lumbar spine mostly new since previous exam. N o end plate destruction is obvious. Diffuse degenerative disc and facet disease is apparent. Congen itally short pedicles. Multilevel central canal and neural foraminal narrowing is noted with the ruben tral canal stenosis most apparent at L3/L4 and L4/L5 (moderate to severe at these levels). There is probably moderate bilateral neural foraminal narrowing at these same levels. No well-defined paraspi nal fluid collection is seen. Sacroiliac joints have mild to moderate arthropathy. Incidental findings include bilateral nephrolit hiasis without obvious hydronephrosis or upper ureteral calculus. Atherosclerotic disease is present . There is a stent within the left common iliac vein. IMPRESSION: Moderately severe degenerative disc and facet disease. Since the first of this year, th ere has been development of additional levels of intervertebral disc space gas which may be related t o longstanding degenerative disc disease. However, patient history and physical exam is recommended. MRI should be considered to help exclude less likely occurrence of diskitis in this setting and als o to further evaluate the disc disease.
--- NOTE | 2017-04-19 14:15 | ED.PDOC ---
General ED Provider: Dr. AYLEEN COLE Chief Complaint: Extremity Pain/Injury Stated Complaint: back pain Time Seen by Physician: 11:00 (seen with nursing staff at all times ) Mode of Arrival: Wheelchair Information Source: Patient Primary Care Provider: LALI WARD Referred to ED by: Other (stated last week while trying to get in to his house from a window fell has back and hip pain) Nursing and Triage Documentation Reviewed and Agree: Yes (hip ppain is left side no neck pain) Trauma/Injury Complaint Exam - Trauma Complaint/Exam Location of Pain or Injury: Reports: Back, Other (left hip). Denies: Head, Scalp, Face, Neck, RUE, LUE, Chest, Abdomen Mechanism of Injury: Reports: Fall Onset/Duration: last week 9 7 days) no new injury Symptoms Are: Still present Timing of Treatment: Day (x7) Initial Severity: Mild Current Severity: Mild Character: Reports: Aching Aggravating: Reports: Movement Alleviating: Reports: Rest, Immobilization Associated Signs and Symptoms: Denies: LOC, Confusion, Memory loss, Lethargy, Vomiting, Bleeding, Bruising, Swelling, Extremity disuse, Painful respiration, Hoarseness, Dysphagia, Hemoptysis, Significant blood loss Related History: Reports: Similar episode Penetrating Injury Risk Factors: Reports: None Nexus Low Risk Criteria: No post-midline CS tender, No evidence of intoxicat., No Altered LOC, No focal neuro deficit, No distracting injuries Skin Findings: Present: Normal findings Differential Diagnoses: Fracture, Sprain, Strain Review of Systems - Review Of Systems Constitutional: Reports: No symptoms Eyes: Reports: No symptoms Ears, Nose, Mouth, Throat: Reports: No symptoms Respiratory: Reports: No symptoms Cardiac: Reports: No symptoms GI: Reports: No symptoms : Reports: No symptoms Musculoskeletal: Reports: Back pain Skin: Reports: No symptoms Neurological: Reports: No symptoms Endocrine: Reports: No symptoms Hematologic/Lymphatic: Reports: No symptoms All Other Systems: Reviewed and Negative Past Medical History - Past Medical History Previously Healthy: No Endocrine: Reports: DM 2, Dyslipidemia Cardiovascular: Reports: Hypertension Respiratory: Reports: COPD, Asthma Hematological: Reports: None Gastrointestinal: Reports: GERD Genitourinary: Reports: Kidney stones Neuro/Psych: Reports: Anxiety, Depression, Bipolar Disorder Musculoskeletal: Reports: None Cancer: Reports: None Other Pertinent Past Medical History: recent right index finger laceration - Surgical History General Surgical History: Reports: Orthopedic (SHOULDER ON EACH SIDE, and numerous other surgeries related to trauma 20+ years ago), Hernia Repair, Other (EYE - RIGHT, VASECTOMY, heart cath (negative findings)) - Family History Family History: Reports: Unknown - Social History Smoking Status: Current every day smoker, Heavy tobacco smoker Hx Substance Use: No Alcohol Screening: None - Immunizations Influenza Vaccine within 12 Months: No Pneumococcal Vaccine up to Date: No Physical Exam - Physical Exam Appearance: Well-appearing, No pain distress, Well-nourished Eyes: BOGDAN, EOMI, Conjunctiva clear ENT: Ears normal, Nose normal, Oropharynx normal Respiratory: Airway patent, Breath sounds clear, Breath sounds equal, Respirations nonlabored Cardiovascular: RRR, Pulses normal, No rub, No murmur GI/: Soft, Nontender, No masses, Bowel sounds normal, No Organomegaly Musculoskeletal: Normal strength, ROM intact, No edema, No calf tenderness Skin: Warm, Dry Neurological: Sensation intact, Motor intact, Reflexes intact, Cranial nerves intact, Alert, Oriented Psychiatric: Affect appropriate, Mood appropriate Interpretation - Radiology Interpretation Radiology Interpretation By: Radiologist Radiology Results: No acute changes Critical Care Note - Critical Care Note Total Time (mins): 0 Course - Course Hematology/Chemistry: 04/19/17 12:43 04/19/17 12:43 Orders, Labs, Meds: Lab Review 04/19/17 04/19/17 04/19/17 11:42 12:43 12:43 WBC 10.50 H RBC 4.58 L Hgb 13.7 L Hct 40.4 L MCV 88.2 MCH 29.9 MCHC 33.9 RDW Coeff of [place] 13.2 Plt Count 358 Immature Gran % (Auto) 0.7 Neut % (Auto) 63.0 Lymph % (Auto) 21.5 [place] % (Auto) 8.9 Eos % (Auto) 4.7 Baso % (Auto) 1.2 Immature Gran # (Auto) 0.1 Neut # 6.6 Lymph # 2.3 [place] # 0.9 Eos # 0.5 Baso # 0.1 Sodium 132 L Potassium 4.0 Chloride 99 Carbon Dioxide 24 Anion Gap 13.0 BUN 16 Creatinine 1.49 H Estimated GFR (MDRD) 49.00 BUN/Creatinine Ratio 10.73 Glucose 176 H Calcium 9.5 Total Bilirubin 0.40 AST 23 ALT 18 Alkaline Phosphatase 64 Total Protein 7.1 Albumin 3.4 Globulin 3.7 Albumin/Globulin Ratio 0.92 Urine Color Yellow Urine Clarity Clear Urine pH 5.0 Ur Specific [place] 1.020 Urine Protein 2+ Urine Glucose (UA) Negative Urine Ketones Negative Urine Blood Trace-lysed Urine Nitrite Negative Urine Bilirubin Negative Urine Urobilinogen 0.2 Ur Leukocyte Esterase Trace Urine Microscopic WBC 0-2 Ur Squamous Epith Cells 2-5 Hyaline Casts 2-5 Orders Category Date Time Status NEBULIZER TREATMENT Stat CARDIO 04/19/17 12:33 Completed CBC W/ AUTO DIFF Stat LAB 04/19/17 12:43 Completed COMPREHENSIVE METABOLIC PANEL Stat LAB 04/19/17 12:43 Completed URINALYSIS C & S IF INDICATED Stat LAB 04/19/17 11:42 Completed Amoxicillin [Amoxil] MEDS 04/19/17 12:32 Discontinued 1,000 mg PO ONCE STA Ipratropium/Albuterol Neb [Duoneb] MEDS 04/19/17 12:33 Discontinued 1 vial NEB ONCE STA Prednisone MEDS 04/19/17 12:31 Discontinued 40 mg PO ONCE STA CT CHEST W/O CONTRAST Stat RADS 04/19/17 12:[address] LUMBAR SPINE W/O CONTRAST Stat RADS 04/19/17 12:[address] PELVIS W/O CONTRAST Stat RADS 04/19/17 13:01 Completed Medications Discontinued Medications Generic Name Dose Route Start Last Admin Trade Name Freq PRN Reason Stop Dose Admin Albuterol/Ipratropium 1 vial 04/19/17 12:33 04/19/17 12:50 Duoneb NEB 04/19/17 12:34 1 vial ONCE STA Administration Amoxicillin 1,000 mg 04/19/17 12:32 04/19/17 13:00 Amoxil PO 04/19/17 12:33 1,000 mg ONCE STA Administration Prednisone 40 mg 04/19/17 12:31 04/19/17 13:00 Prednisone PO 04/19/17 12:32 40 mg ONCE STA Administration Vital Signs: Temp Pulse Resp BP Pulse Ox 04/19/17 11:05 98.1 F 89 20 119/81 94 L Departure - Departure Time of Disposition: 14:17 Disposition: HOME SELF-CARE Discharge Problem: Back pain Qualifiers: Back pain location: low back pain Back pain laterality: midline Sciatica presence: with sciatica Sciatica laterality: sciatica of left side Proteinuria Qualifiers: Proteinuria type: unspecified Qualified Code(s): R80.9 - Proteinuria, unspecified Instructions: Sciatica (ED), Acute Low Back Pain (ED), Lumbar Radiculopathy (ED ), Lower Back Exercises (ED) Condition: Good Pt referred to PMD for follow-up: Yes Additional Instructions: Please call your Family Physician as soon as possible to schedule a follow-up appointment.you have protein in urine this is can be a major issue and if not adressed you may end up on dialysis. ALSO YOUR BACK REQUIRES FURTHER EVALUATION BY THROUGH AN MRI MACHINE SEE YOUR DOCTOR Prescriptions: Hydrocodone/Acetaminophen [[place] 10-325 Tablet] 1 each PO Q8HR #12 tablet Allergies/Adverse Reactions: Allergies codeine Adverse Reaction (Verified 04/19/17 11:09) guaifenesin [From Mucinex] Adverse Reaction (Verified 04/19/17 11:09) metformin Adverse Reaction (Verified 04/19/17 11:09) Home Medications: Ambulatory Orders Alprazolam [Xanax] 1 mg PO QID 10/31/13 Aspirin [Aspirin Chewable] 81 mg PO DAILYWM 10/31/13 Budesonide/Formoterol Fumarate [Symbicort 160-4.5 Mcg Inhaler] 2 inh INH BID Citalopram Hydrobromide [Celexa] 40 mg PO DAILY 10/31/13 Esomeprazole Magnesium [Nexium] 20 mg PO DAILY 10/31/13 Fenofibrate 145 mg PO DAILY 10/31/13 Hydrochlorothiazide 12.5 mg PO DAILY 10/31/13 Quetiapine Fumarate [Seroquel] 300 mg PO BEDTIME 10/31/13 Trazodone HCl 150 mg PO BEDTIME 10/31/13 Tizanidine HCl [Zanaflex] 4 mg PO PRN PRN 01/30/14 Magnesium Oxide [Magnesium] 500 mg PO DAILY 01/07/16 Ibuprofen [Motrin] 800 mg PO Q8H PRN #30 tablet 01/20/16 Albuterol Sulfate [Ventolin Hfa] 2 puff IH TID PRN 05/22/16 Hydrocodone/Acetaminophen [[place] 10-325 Tablet] 7.5 each PO Q6HR PRN 05/22/16 Benazepril HCl 40 mg PO DAILY 08/21/16 Epinephrine [Epipen 2-Sergio] 0.3 mg IM ONCE PRN #1 ml 02/14/17 Hydrocodone/Acetaminophen [[place] 10-325 Tablet] 1 each PO Q8HR #12 tablet Disposition Discussed With: Patient
--- NOTE | 2017-04-19 14:15 | CT ---
Exam: CT of the pelvis without intravenous contrast. Comparison: CT abdomen pelvis performed 05/08/2016. Reason for exam: Left hip pain. FINDINGS: 6 mm and 3 mm stones are seen in the right renal collecting system. There is atherosclero tic disease of the aorta and distal arterial vasculature. Stent graft is seen in the left common alex ac. No acute fracture or malalignment is seen within the pelvis. Small osseous irregularity is seen on t he greater trochanter likely a tug lesion. The bladder appears grossly unremarkable. Impression: 1. No acute fracture or malalignment in the pelvis. 2. Mild degenerative disease with a typically benign appearing osseous irregularity on the left great er trochanter likely a tug lesion. 3. Partially imaged, nephrolithiasis
== END 2017-04-19 15:05 | disposition home or self-care (01) ==
LOC: ED 11:03
DX: M54.42 Lumbago with sciatica, left side (principal); R80.9 Proteinuria, unspecified; W19.XXXA Unspecified fall, initial encounter; F17.210 Nicotine dependence, cigarettes, uncomplicated; Z79.899 Other long term (current) drug therapy
CPT/HCPCS: 36415; 80053; 81001; 85025; 94640; 99283

== ENCOUNTER 2017-05-12 08:18 | Outpatient (CLI) | END 2017-05-12 08:19 | disposition home or self-care (01) | LOC: AMBL 08:18 | PROVIDERS: ATTEND Internal Medicine | DX: E11.9 Type 2 diabetes mellitus without complications (principal) ==

== ENCOUNTER 2017-05-14 17:51 | Outpatient (CLI) | END 2017-05-14 17:52 | disposition short-term general hospital (02) | LOC: AMBL 17:51 | PROVIDERS: ATTEND Internal Medicine | DX: M54.2 Cervicalgia (principal); M25.552 Pain in left hip; M54.9 Dorsalgia, unspecified; R51 Headache; M79.605 Pain in left leg; R05 Cough; V59.40XA Driver of pick-up truck or van injured in collision with unspecified motor vehicles in traffic accident, initial encounter; F17.210 Nicotine dependence, cigarettes, uncomplicated ==

== ENCOUNTER 2017-07-14 13:00 | Emergency (ER) ==
[2017-07-14 13:12] VITALS: BP 167/90; TEMP 98.4
[2017-07-14] MEDS ORDERED: TORADOL IM STA (13:18)
[2017-07-14 13:23] VITALS: BMI 32.3
--- NOTE | 2017-07-14 13:28 | ED.PDOC ---
General ED Provider: Dr. AYLEEN COLE Chief Complaint: Hip Pain/Injury Stated Complaint: HIP PAIN LEFT SIDED Time Seen by Physician: 13:10 ( CHRONIC ISSUE SEEN WITH SANTOS AT ALL TIMES ) Mode of Arrival: Walk-In Information Source: Patient Primary Care Provider: LALI WARD Referred to ED by: Other (SANTOS PRESENT AT ALL TIMES ) Nursing and Triage Documentation Reviewed and Agree: Yes Reviewed sepsis parameters & appropriate labs ordered?: No System Inflammatory Response Syndrome: Not Applicable Sepsis Protocol: For patient's 13 years and over: Temp is 96.8 and below OR 101 and greater Pulse >90 BPM Resp >20/minute Acutely Altered Mental Status Are patient's symptoms suggestive of a new infection, such as: -Pneumonia -Skin, Soft Tissue -Endocarditis -UTI -Bone, Joint Infection -Implantable Device -Acute Abdominal Infection -Wound Infection -Meningitis -Blood Stream Catheter Infection -Unknown System Inflammatory Response Syndrome: Not Applicable Musculoskeletal Complaint Exam - Back Pain Complaint/Exam Mechanism of Injury: Reports: No known trauma, Other (SANTOS PRESENT AT ALL TIMES ) Onset/Duration: CHRONIC WORSE TODAY ALSO HAS HIP PAIN NO INJURY CHRONIC Symptoms Are: Still present Timing: Constant Episodes Lasting: Hours Initial Severity: Moderate Current Severity: Moderate Location: Reports: Discrete (LEFT LUMBAR AND LEFT HIP SEEN FOR SAME ISSUE BY MYSELF IN THE RECENT PAST) Character: Reports: Aching, Spasmodic, Stiffness Aggravating: Reports: Movements, Lifting, Bending, Walking Alleviating: Reports: Rest, Position Associated Signs and Symptoms: Reports: Flank pain (LEFT NO URINARY SYMPTOMS) Related History: Reports: Similar episode (CHRONIC ) TAD Risk Factors: Reports: Hypertension AAA Risk Factors: Reports: Hypertension Cauda Equina Risk Factors: Reports: None Epidural Abcess Risk Factors: Reports: None Related Surgical History: Reports: None Focal Tenderness: No Paraspinal Muscle Tenderness: Yes Paraspinal Muscle Spasm: Yes Scoliosis: No Lordosis: No Kyphosis: No SLR Test: Right Negative, Left Negative Hip Motion Testing Pain: Right Negative, Left Negative Focal Weakness: Present: None Focal Sensory Loss: Present: None Gait: Present: Normal Back Picture: 1 - PAIN LEFT FLANK/ HIP 2 - LEFT HIP PAINAS NOTED Differential Diagnoses: Arthritis, Fracture, Strain, Sprain Review of Systems - Review Of Systems Constitutional: Reports: No symptoms Eyes: Reports: No symptoms Ears, Nose, Mouth, Throat: Reports: No symptoms Respiratory: Reports: No symptoms Cardiac: Reports: No symptoms GI: Reports: No symptoms : Reports: No symptoms Musculoskeletal: Reports: Back pain (LUMBAR ), Other (HIP PAIN LEFT SIDED ) Skin: Reports: No symptoms Neurological: Reports: No symptoms Endocrine: Reports: No symptoms Hematologic/Lymphatic: Reports: No symptoms All Other Systems: Reviewed and Negative Past Medical History - Past Medical History Previously Healthy: No Endocrine: Reports: DM 2, Dyslipidemia Cardiovascular: Reports: Hypertension Respiratory: Reports: COPD, Asthma Hematological: Reports: None Gastrointestinal: Reports: GERD Genitourinary: Reports: Kidney stones Neuro/Psych: Reports: Anxiety, Depression, Bipolar Disorder Musculoskeletal: Reports: None Cancer: Reports: None Other Pertinent Past Medical History: recent right index finger laceration - Surgical History General Surgical History: Reports: Orthopedic (SHOULDER ON EACH SIDE, and numerous other surgeries related to trauma 20+ years ago), Hernia Repair, Other (EYE - RIGHT, VASECTOMY, heart cath (negative findings)) - Family History Family History: Reports: Unknown - Social History Smoking Status: Current every day smoker, Light tobacco smoker Hx Substance Use: No Alcohol Screening: None - Immunizations Influenza Vaccine within 12 Months: No Pneumococcal Vaccine up to Date: No Physical Exam - Physical Exam Appearance: Well-appearing, No pain distress, Well-nourished Eyes: BOGDAN, EOMI, Conjunctiva clear ENT: Ears normal, Nose normal, Oropharynx normal Respiratory: Airway patent, Breath sounds clear, Breath sounds equal, Respirations nonlabored Cardiovascular: RRR, Pulses normal, No rub, No murmur GI/: Soft, Nontender, No masses, Bowel sounds normal, No Organomegaly Musculoskeletal: Normal strength (LEFT HIP TENDER ), ROM intact, No edema, No calf tenderness Skin: Warm, Dry, Normal color Neurological: Sensation intact, Motor intact, Reflexes intact, Cranial nerves intact, Alert, Oriented Psychiatric: Affect appropriate, Mood appropriate Interpretation - Radiology Interpretation Radiology Interpretation By: Radiologist Re-Evaluation - Re-Evaluation Time of Re-Evaluation: 14:38 (SEEN WITH ROMEL MAURICE ON D/C) Vital Signs Stable: Yes Pain Level: 4 Appearance: NAD Lungs: Clear Skin: Warm and Dry Neuro: Alert and Oriented X3 CV: RRR Critical Care Note - Critical Care Note Total Time (mins): 0 Course - Course Orders, Labs, Meds: Orders Category Date Time Status Ketorolac Tromethamine [Toradol] MEDS 07/14/17 13:18 Discontinued 60 mg IM ONCE STA Ondansetron HCl/Pf [Zofran 4 mg/2 ml] MEDS 07/14/17 13:45 Discontinued 4 mg IM ONCE STA CT LUMBAR SPINE W/O CONTRAST Stat RADS 07/14/17 13:[address] PELVIS W/O CONTRAST Stat RADS 07/14/17 13:18 Completed Medications Discontinued Medications Generic Name Dose Route Start Last Admin Trade Name Freq PRN Reason Stop Dose Admin Ketorolac Tromethamine 60 mg 07/14/17 13:18 07/14/17 13:25 Toradol IM 07/14/17 13:19 60 mg ONCE STA Administration Ondansetron HCl 4 mg 07/14/17 13:45 07/14/17 13:49 Zofran 4 Mg/2 Ml IM 07/14/17 13:46 4 mg ONCE STA Administration Vital Signs: Temp Pulse Resp BP Pulse Ox 07/14/17 13:07 98.4 F 92 H 20 167/90 H 94 L Departure - Departure Time of Disposition: 00:00 (THIS PT WAS SEEN WITH ROMEL MAURICE I NOTIFED PT WITH ALL CT REPORTS DISCUSSED THEM AND HIGHLIGHTED FINDINGS WITH LORRIE AT BEDSIDE ) Disposition: HOME SELF-CARE Discharge Problem: Hip pain Back pain Qualifiers: Back pain location: low back pain Chronicity: acute Back pain laterality: left Sciatica presence: without sciatica Qualified Code(s): M54.5 - Low back pain Instructions: Acute Low Back Pain (ED), Arthralgia (ED), Hip Pain (ED) Condition: Good Pt referred to PMD for follow-up: Yes IPMP verified?: No Additional Instructions: Please call your Family Physician as soon as possible to schedule a follow-up appointment. you must see your md for follow up and in addition you must have an MRI of your spine. MRI WILL EXAMINE ALL THE SOFT WELL BONY STRUCTURE OF LOWER BACK AND PLEVIS/HIP Allergies/Adverse Reactions: Allergies guaifenesin [From Mucinex] Adverse Reaction (Verified 04/19/17 11:09) metformin Adverse Reaction (Verified 04/19/17 11:09) Home Medications: Ambulatory Orders Alprazolam [Xanax] 1 mg PO QID 10/31/13 Budesonide/Formoterol Fumarate [Symbicort 160-4.5 Mcg Inhaler] 2 inh INH BID Citalopram Hydrobromide [Celexa] 40 mg PO DAILY 10/31/13 Esomeprazole Magnesium [Nexium] 20 mg PO DAILY 10/31/13 Quetiapine Fumarate [Seroquel] 300 mg PO BEDTIME 10/31/13 Trazodone HCl 150 mg PO BEDTIME 10/31/13 Tizanidine HCl [Zanaflex] 4 mg PO PRN PRN 01/30/14 Ibuprofen [Motrin] 800 mg PO Q8H PRN #30 tablet 01/20/16 Albuterol Sulfate [Ventolin Hfa] 2 puff IH TID PRN 05/22/16 Hydrocodone/Acetaminophen [[place] 10-325 Tablet] 7.5 each PO Q6HR PRN 05/22/16 Epinephrine [Epipen 2-Sergio] 0.3 mg IM ONCE PRN #1 ml 02/14/17
[2017-07-14] MEDS ORDERED: ZOFRAN 4 MG/2 ML IM STA (13:45)
--- NOTE | 2017-07-14 14:31 | CT ---
EXAM: CT lumbar spine without contrast. HISTORY: Lower back pain COMPARISON: CT lumbar spine 04/19/2017 TECHNIQUE: Serial axial images of the spine were obtained from the lower thoracic spine through the pelvis without contrast. These were viewed in multiple planes. FINDINGS: Vertebral bodies demonstrate no acute compression fracture or subluxation. There is multi level degenerative change and disc space narrowing with osteophyte formation and facet arthropathy. There is unchanged mild rightward scoliosis with the apex at L3. There is no lytic or blastic lesion. L1-L2: Small broad-based disc bulge and minimal facet arthropathy with no central or neural foraminal narrowing. L2-L3: Small broad-based disc bulge with facet arthropathy and mild neural foraminal narrowing. L3-L4: There is degenerative change with broad-based disc bulge and facet arthropathy with severe rig ht and moderate to severe left neural foraminal narrowing and moderate central neural foraminal narro wing. L4-L5: Broad-based disc bulge and facet arthropathy with bilateral moderate neural foraminal narrowin g. L5-S1: Broad-based disc bulge and facet arthropathy with no central or neural foraminal narrowing. Limited views of the soft tissues are unremarkable. There is a left iliac stents in place. There is moderate atherosclerotic disease. There are nonobstructing left renal calculi. IMPRESSION: 1. No acute compression fracture or subluxation. 2. Multilevel degenerative disease of the spine with severe right and moderate to severe left neural foraminal narrowing at L3-L4. Other levels as described above. If further evaluation is indicated, MRI may be obtained. 3. Mild rightward scoliosis unchanged from prior.
--- NOTE | 2017-07-14 14:32 | CT ---
EXAM: CT pelvis HISTORY: Left hip pain. FINDINGS: CT pelvis without contrast. Multiplanar images provided. FINDINGS: Comparison may be made to 04/19/2017. The hip joints are intact. There is no acute fracture identified. Mild irregularity of the left gre ater trochanter without noticeable change since prior study of 04/19/2017 could represent arthritic s purring or evidence of old avulsion fracture, among other possibilities. The sacroiliac joints are i ntact. Incidental note of degenerative changes of the lower spine with severe central canal stenosis at L3/L4 and L4/L5. There is a vascular stent over the general region of the left common iliac vein . IMPRESSION: 1. Hip joints are within normal limits. 2. Mild irregularity of the left greater trochanter of questionable current clinical significance. 3. Stable degenerative changes of the lower spine with severe central canal stenosis at L3/L4 and L4 /L5.
== END 2017-07-14 14:53 | disposition home or self-care (01) ==
LOC: ED 13:00
DX: M25.552 Pain in left hip (principal); M54.5 Low back pain; G89.29 Other chronic pain; I10 Essential (primary) hypertension; F17.210 Nicotine dependence, cigarettes, uncomplicated
CPT/HCPCS: 96372; 99283

== ENCOUNTER 2018-02-08 10:46 | Outpatient (CLI) ==
--- NOTE | 2018-02-08 11:59 | CT ---
EXAM: CT of the head without contrast History: Left-sided weakness. Technique: Multiplanar CT images through the head were obtained without the administration of IV con trast Findings: Very mild mucosal thickening of the ethmoid air cells and frontal sinuses. Mastoid air jaclyn ls are clear in general. No acute calvarial abnormalities. Intracranially the ventricular and cisternal spaces are normal in size, shape and configuration for a patient of this age. No dominant mass or midline shift. No hydrocephalous. No acute intracranial hemorrhage or abnormal extraaxial fluid collections. Impression: No acute intracranial process
== END 2018-02-08 10:47 | disposition home or self-care (01) ==
LOC: RAD 10:46
PROVIDERS: ATTEND Nurse Practitioner
DX: E03.9 Hypothyroidism, unspecified (principal); E11.65 Type 2 diabetes mellitus with hyperglycemia; E78.2 Mixed hyperlipidemia; I10 Essential (primary) hypertension; R53.1 Weakness; Z79.899 Other long term (current) drug therapy; Z12.5 Encounter for screening for malignant neoplasm of prostate
CPT/HCPCS: 36415

== ENCOUNTER 2018-07-01 18:05 | Outpatient (CLI) | END 2018-07-01 18:26 | disposition short-term general hospital (02) | LOC: AMBL 18:05 | PROVIDERS: ATTEND Internal Medicine | DX: R20.0 Anesthesia of skin (principal); R53.1 Weakness ==

== ENCOUNTER 2018-07-07 13:30 | Observation (INO) ==
--- NOTE | 2018-07-07 14:35 | ED.PDOC ---
General ED Provider: Dr. KAYLENE CHOWDARY Chief Complaint: Diabetes Stated Complaint: Was referred here from Dr [facility]-his MLP who stated patient was undergoing assessment. Records from [facility] obtained and patient had some Lt arm Weakness and Lt Facial Drooping. This resolved spontaneously.CT head was normal. BS there was 616. Patient tx with Humalog 30 units and BS decreased to 400. Phys there rec admission but pt refused and signed out AMA. See Note From Dr Audrey ray for further information . Time Seen by Physician: 14:00 Mode of Arrival: Wheelchair Information Source: Patient Exam Limitations: No limitations Referred to ED by: Clinic Nursing and Triage Documentation Reviewed and Agree: Yes Does patient meet sepsis criteria?: No System Inflammatory Response Syndrome: Not Applicable Sepsis Protocol: For patient's 13 years and over: Temp is 96.8 and below OR 101 and greater Pulse >90 BPM Resp >20/minute Acutely Altered Mental Status Are patient's symptoms suggestive of a new infection, such as: -Pneumonia -Skin, Soft Tissue -Endocarditis -UTI -Bone, Joint Infection -Implantable Device -Acute Abdominal Infection -Wound Infection -Meningitis -Blood Stream Catheter Infection -Unknown Musculoskeletal Complaint Exam - Upper Extremity Complaint/Exam Location of Pain: Reports: Left, Arm, Forearm Mechanism of Injury: Reports: No known trauma Symptoms Are: Resolved Timing: Intermittent Episodes Lasting: Seconds Initial Severity: Mild Current Severity: None Location: Reports: Discrete Character: Reports: Unable to describe Aggravating: Reports: None Alleviating: Reports: None Related History: Reports: Similar episode Non-Orthopedic Risk Factors: Reports: None DVT Risk Factors: Reports: None Septic Arthritis Risk Factors: Reports: None Related Surgical History: Reports: None Upper Extremity Findings: Absent: Swelling, Ecchymosis, Abnormal contour, Rotation, Ligamentous instability, Laceration, Erythema, Warmth, Blisters, Other joint pain, Foreign body, Tenderness, Limited range of motion NV Bundle Intact Distal to Injury: Yes Compartment Syndrome Risk Factors: Absent: Pain, Paralysis, Pallor, Pulselessness, Paresthesias Differential Diagnoses: Other (Weakness) Review of Systems - Review Of Systems Constitutional: Reports: No symptoms Eyes: Reports: No symptoms Ears, Nose, Mouth, Throat: Reports: No symptoms Respiratory: Reports: No symptoms Cardiac: Reports: No symptoms GI: Reports: No symptoms : Reports: No symptoms Musculoskeletal: Reports: No symptoms Skin: Reports: No symptoms Neurological: Reports: No symptoms Endocrine: Reports: No symptoms Hematologic/Lymphatic: Reports: No symptoms All Other Systems: Reviewed and Negative Past Medical History - Past Medical History Endocrine: Reports: DM 2, Dyslipidemia Cardiovascular: Reports: Hypertension Respiratory: Reports: COPD, Asthma Hematological: Reports: None Gastrointestinal: Reports: GERD Genitourinary: Reports: Kidney stones Neuro/Psych: Reports: Anxiety, Depression, Bipolar Disorder Musculoskeletal: Reports: None Cancer: Reports: None Other Pertinent Past Medical History: recent right index finger laceration - Surgical History General Surgical History: Reports: Orthopedic (SHOULDER ON EACH SIDE, and numerous other surgeries related to trauma 20+ years ago), Hernia Repair, Other (EYE - RIGHT, VASECTOMY, heart cath (negative findings)) - Family History Family History: Reports: Unknown - Social History Smoking Status: Current every day smoker, Light tobacco smoker Hx Substance Use: No Alcohol Screening: None - Immunizations Influenza Vaccine within 12 Months: No Pneumococcal Vaccine up to Date: No Physical Exam - Physical Exam Appearance: Obese Ill-appearing: None Pain Distress: None Eyes: BOGDAN ENT: Ears normal, Nose normal, Oropharynx normal Neck: Supple Respiratory: Airway patent Cardiovascular: RRR, Pulses normal, No rub, No murmur GI/: Soft, Nontender, No masses, Bowel sounds normal, No Organomegaly Musculoskeletal: Normal strength, ROM intact, No edema, No calf tenderness Skin: Warm, Dry, Normal color Neurological: Sensation intact, Motor intact, Reflexes intact, Cranial nerves intact, Alert, Oriented Psychiatric: Affect appropriate, Mood appropriate Critical Care Note - Critical Care Note Total Time (mins): 60 Course - Course Hematology/Chemistry: 07/07/18 15:25 07/07/18 15:25 Orders, Labs, Meds: Lab Review 07/07/18 07/07/18 07/07/18 15:25 15:25 15:25 WBC 9.34 RBC 5.35 Hgb 15.8 Hct 47.2 MCV 88.2 MCH 29.5 MCHC 33.5 RDW Coeff of [place] 13.3 Plt Count 255 Immature Gran % (Auto) 0.6 Neut % (Auto) 62.7 Lymph % (Auto) 23.4 [place] % (Auto) 7.4 Eos % (Auto) 4.5 Baso % (Auto) 1.4 Immature Gran # (Auto) 0.1 Neut # (Auto) 5.9 Lymph # (Auto) 2.2 [place] # (Auto) 0.7 Eos # (Auto) 0.4 Baso # (Auto) 0.1 Sodium 131.0 L Potassium 4.00 Chloride 90.0 L Carbon Dioxide 30.0 Anion Gap 15.00 BUN 10.0 Creatinine 0.80 Estimated GFR (MDRD) 100.00 BUN/Creatinine Ratio 12.50 Glucose 444.0 H Hemoglobin A1c > 14.00 H D Uric Acid 5.56 Calcium 9.30 Total Bilirubin 0.60 AST 26.0 ALT 32.0 Alkaline Phosphatase 118.0 Total Protein 7.60 Albumin 4.10 Globulin 3.50 Albumin/Globulin Ratio 1.17 Triglycerides 478.9 H Cholesterol 268.0 H LDL Cholesterol, Calc VLDL Cholesterol HDL Cholesterol 31.6 L Cholesterol/HDL Ratio 8.5 H TSH 2.500 Urine Color Urine Clarity Urine pH Ur Specific [place] Urine Protein Urine Glucose (UA) Urine Ketones Urine Blood Urine Nitrite Urine Bilirubin Urine Urobilinogen Ur Leukocyte Esterase 07/07/18 15:45 WBC RBC Hgb Hct MCV MCH MCHC RDW Coeff of [place] Plt Count Immature Gran % (Auto) Neut % (Auto) Lymph % (Auto) [place] % (Auto) Eos % (Auto) Baso % (Auto) Immature Gran # (Auto) Neut # (Auto) Lymph # (Auto) [place] # (Auto) Eos # (Auto) Baso # (Auto) Sodium Potassium Chloride Carbon Dioxide Anion Gap BUN Creatinine Estimated GFR (MDRD) BUN/Creatinine Ratio Glucose Hemoglobin A1c Uric Acid Calcium Total Bilirubin AST ALT Alkaline Phosphatase Total Protein Albumin Globulin Albumin/Globulin Ratio Triglycerides Cholesterol LDL Cholesterol, Calc VLDL Cholesterol HDL Cholesterol Cholesterol/HDL Ratio TSH Urine Color Yellow Urine Clarity Clear Urine pH 6.5 Ur Specific [place] <=1.005 Urine Protein Negative Urine Glucose (UA) 2+ Urine Ketones Negative Urine Blood Negative Urine Nitrite Negative Urine Bilirubin Negative Urine Urobilinogen 0.2 Ur Leukocyte Esterase Negative Orders Category Date Time Status NPO REMINDER: LAB TEST ONCE CARE 07/07/18 15:11 Completed CBC W/ AUTO DIFF Stat LAB 07/07/18 15:25 Completed CMP [COMPREHENSIVE METABOLIC PANEL] Stat LAB 07/07/18 15:25 Completed HEMOGLOBIN A1C Stat LAB 07/07/18 15:25 Completed LIPID PANEL Stat LAB 07/07/18 15:25 Completed THYROID STIMULATING HORMONE Stat LAB 07/07/18 15:25 Completed UA [URINALYSIS C & S IF INDICATED] Stat LAB 07/07/18 15:45 Completed URIC ACID Stat LAB 07/07/18 15:25 Completed Medications Discontinued Medications Generic Name Dose Route Start Last Admin Trade Name Freq PRN Reason Stop Dose Admin Insulin Human Lispro 10 unit 07/07/18 17:16 Humalog SUBCUT 07/07/18 17:17 ONCE STA Vital Signs: Temp Pulse Resp BP Pulse Ox 07/07/18 13:31 97.6 F 100 H 20 149/88 H 93 L Departure - Departure Time of Disposition: 18:15 Disposition: PLACED OBSERVATION Discharge Problem: Uncontrolled diabetes mellitus Condition: Fair Pt referred to PMD for follow-up: Yes IPMP verified?: No Allergies/Adverse Reactions: Allergies guaifenesin [From Mucinex] Adverse Reaction (Verified 07/07/18 13:37) metformin Adverse Reaction (Verified 07/07/18 13:37) Home Medications: Ambulatory Orders Alprazolam [Xanax] 1 mg PO QID 10/31/13 Budesonide/Formoterol Fumarate [Symbicort 160-4.5 Mcg Inhaler] 2 inh INH BID Citalopram Hydrobromide [Celexa] 40 mg PO DAILY 10/31/13 Esomeprazole Magnesium [Nexium] 20 mg PO DAILY 10/31/13 Quetiapine Fumarate [Seroquel] 300 mg PO BEDTIME 10/31/13 Trazodone HCl 150 mg PO BEDTIME 10/31/13 Tizanidine HCl [Zanaflex] 4 mg PO PRN PRN 01/30/14 Albuterol Sulfate [Ventolin Hfa] 2 puff IH TID PRN 05/22/16 Hydrocodone/Acetaminophen [[place] 10-325 Tablet] 7.5 each PO Q6HR PRN 05/22/16 Epinephrine [Epipen 2-Sergio] 0.3 mg IM ONCE PRN #1 ml 02/14/17 Gabapentin [Neurontin] 400 mg PO QID 07/07/18 Disposition Discussed With: Patient
[2018-07-07] MEDS ORDERED: HUMALOG SUBCUT STA ×3 (17:13→18:21)
--- NOTE | 2018-07-07 20:04 | CT ---
EXAM: CT scan brain without contrast HISTORY: Left arm weakness COMPARISON: CT scan brain 02/08/2018 FINDINGS: Contiguous axial images were obtained from skull base to the convexities without contrast utilizing 5-mm collimation... Sagittal and coronal reconstructions were imaged and reviewed.. The p atient is mildly canted within the scanner.. The ventricles and CSF spaces are within normal limits. There is no evidence of acute territorial infarction, intracranial hemorrhage or mass. No abnormal extra-axial fluid collections are identified.. Atherosclerotic changes are seen involving cavernous internal carotid arteries. The visualized paranasal sinuses and mastoid air cells are clear. The c alvarium is intact. IMPRESSION: No acute intracranial findings
--- NOTE | 2018-07-07 20:05 | DI ---
EXAM: Chest PA and lateral HISTORY: Cough, screening. COMPARRISON: 04/19/2017 CT chest FINDINGS: The heart is normal in size. Pulmonary vascularity is within normal limits. No focal airs pace opacity or pleural effusion is seen. Left shoulder total arthroplasty is seen. Multilevel thor acic disc disease is present. IMPRESSION: No acute cardiopulmonary findings.
[2018-07-07 20:15] VITALS: BMI 35.6
[2018-07-07] MEDS ORDERED: NON-FORMULARY MEDICATION (Quetiapine Fumarate [Seroquel] 300 MG) PO SCH ×2 (21:00→21:45)
[2018-07-07] MEDS ORDERED: NON-FORMULARY MEDICATION (Alprazolam [Xanax] 1 MG) PO SCH ×2 (21:00→21:30)
[2018-07-07] MEDS ORDERED: FORMOTEROL FUMARATE INH SCH (21:00)
[2018-07-07] MEDS ORDERED: LANTUS SUBCUT SCH (21:00)
[2018-07-07] MEDS ORDERED: GABAPENTIN 400 MG PO SCH ×2 (21:00→21:45)
[2018-07-07] MEDS ORDERED: BUDESONIDE INH SCH (21:00)
[2018-07-07] MEDS ORDERED: [UNRECOGNIZED DRUG - OTHER] INH SCH (21:00)
[2018-07-07] MEDS ORDERED: NORCO 7.5-325 PO PRN (21:30)
[2018-07-07] MEDS ORDERED: NON-FORMULARY MEDICATION (Tizanidine Hcl [Zanaflex] 4 MG) PO PRN (21:32)
[2018-07-07] MEDS ORDERED: XANAX ONE (21:44)
[2018-07-07] MEDS ORDERED: NEURONTIN ONE ×2 (21:44)
[2018-07-07] MEDS ORDERED: NON-FORMULARY MEDICATION (Trazodone Hcl [Trazodone Hcl] 150 MG) PO SCH (21:45)
[2018-07-07] MEDS ORDERED: DESYREL ONE (21:45)
[2018-07-07] MEDS ORDERED: SEROQUEL ONE (21:45)
[2018-07-07] MEDS: NORCO 7.5-325 PO PRN (21:51)
[2018-07-07] MEDS: SYMBICORT 160-4.5 MCG INHALER IH SCH (21:51)
[2018-07-07] MEDS: HUMULIN R SUBCUT PRN (21:58)
[2018-07-07] MEDS: PROAIR HFA IH PRN (22:15)
[2018-07-08 05:06] VITALS: BP 110/57; TEMP 97.7
[2018-07-08] MEDS: HUMULIN R SUBCUT PRN ×2 (05:55→12:06)
[2018-07-08] MEDS ORDERED: PRILOSEC PO SCH (06:30)
[2018-07-08] MEDS ORDERED: ZANAFLEX PO PRN (07:29)
[2018-07-08] MEDS ORDERED: HUMALOG SUBCUT SCH (08:00)
[2018-07-08] MEDS ORDERED: ASPIRIN EC PO SCH (08:30)
[2018-07-08] MEDS: XANAX PO SCH ×2 (08:50→14:15)
--- NOTE | 2018-07-08 08:50 | PCM.PROG ---
Attending Provider: ATTENDING PROVIDER: [facility] This patient is seen with Klaudia Stevens, Nurse Practitioner. DATE OF SERVICE: 07/08/18 SUBJECTIVE: This 58 year old WHITE/ M was hospitalized 07/07/18 through the Emergency Department last night with uncontrolled glucose. The patient has previous history of diabetes requiring insulin. He has not been on medication for one year. He had previously seen Mayte Holley in [place] at the [facility]. He was recently was at [facility] with uncontrolled glucose however the patient refused admission. He has an extensive history of risk factors and noncompliance. REVIEW OF SYSTEMS: CONSTITUTIONAL: No night sweats. No fatigue, malaise, lethargy. No fever or chills. HEENT: Eyes: No visual changes. No eye pain. No eye discharge. ENT: No runny nose. No epistaxis. No sinus pain. No odynophagia. No congestion. RESPIRATORY: No cough, no congestion. No hemoptysis. No shortness of breath. CARDIOVASCULAR: No angina symptoms. No CHF symptoms. No atypical chest pain for CAD. No palpitations. No orthopnea.. GASTROINTESTINAL: No abdominal pain. No nausea or vomiting. No diarrhea or constipation. No hematemesis. No hematochezia. GENITOURINARY: No urgency. No frequency. No dysuria. No hematuria. No obstructive symptoms. No discharge. No pain. No significant abnormal bleeding. MUSCULOSKELETAL: No musculoskeletal pain; no joint swelling. NEUROLOGICAL: Awake, alert, oriented to time, place and person. No headache. No neck pain. No syncope. No seizures. No dizziness. PSYCHIATRIC: Not anxious. No depression. No suicidal thoughts. No homicidal thoughts. SKIN: No rash. No lesions. No wounds. ENDOCRINE: No unexplained weight loss. No weight gain. HEMATOLOGIC/LYMPHATIC: No anemia. No purpura. No petechiae. No prolonged or excessive bleeding. No palpable lymph nodes. PHYSICAL EXAMINATION: GENERAL: The patient is awake, alert and oriented, lying in bed in no distress. VITAL SIGNS: Temperature 97.7 F, Pulse 76, Respiratory Rate 20, BP 110/57, Pulse Ox 92% HEENT: Head normocephalic, atraumatic. Eyes: Extraocular muscles are intact. Pupils are equal, round and reactive to light and accommodation. Ears: No lesions. Nose appeared normal. Throat: No exudate or erythema. NECK: Supple. No JVD, no carotid bruit. No lymphadenopathy or thyromegaly. LUNGS: Diminished breath sounds. Clear to auscultation. Percussion note normal. Chest symmetrical. HEART: S1, S2, no S3. No murmurs. No cyanosis or clubbing. No ascites. Pulses: Dorsalis pedis and posterior tibial pulses +1 to +2 both sides. ABDOMEN: Soft. Non-tender. Bowel sounds active. No CVA tenderness. No mass felt. EXTREMITIES: No edema. Full range of motion of all extremities, equal. NEUROLOGIC: No focal deficit. Cranial nerves II through XII are grossly intact. No headache, no double vision or headache. SKIN: Not dry. Intact. Turgor-normal. LYMPHATIC: No palpable lymph nodes/no lymphedema. MUSCULOSKELETAL: Normal joints with no swelling. Muscle tone is normal. LAB REVIEW: 07/08/18 05:05 07/08/18 05:05 07/08/18 05:05: Sodium 134.0 L, Potassium 3.95, Chloride 94.8 L, Carbon Dioxide 33.0 H, Anion Gap 10.15, BUN 11.6, Creatinine 0.78, Estimated GFR (MDRD) 103.00 , BUN/Creatinine Ratio 14.87, Glucose 278.9 H D, Calcium 8.84, Total Bilirubin 0.75, AST 28.2, ALT 25.1, Alkaline Phosphatase 98.9, Total Protein 6.78, Albumin 3.55, Globulin 3.23, Albumin/Globulin Ratio 1.09 07/08/18 05:05: WBC 7.70, RBC 4.87, Hgb 14.4, Hct 43.0, MCV 88.3, MCH 29.6, MCHC 33.5, RDW Coeff of Christiano 13.3, Plt Count 214, Immature Gran % (Auto) 0.5, Neut % (Auto) 58.4, Lymph % (Auto) 26.5, [place] % (Auto) 8.1, Eos % (Auto) 5.3, Baso % (Auto) 1.2, Immature Gran # (Auto) 0.0, Neut # (Auto) 4.5, Lymph # (Auto ) 2.0, [place] # (Auto) 0.6, Eos # (Auto) 0.4, Baso # (Auto) 0.1 07/07/18 15:45: Urine Color Yellow, Urine Clarity Clear, Urine pH 6.5, Ur Specific [place] <=1.005, Urine Protein Negative, Urine Glucose (UA) 2+, Urine Ketones Negative, Urine Blood Negative, Urine Nitrite Negative, Urine Bilirubin Negative, Urine Urobilinogen 0.2, Ur Leukocyte Esterase Negative 07/07/18 15:30: ESR 16 H 07/07/18 15:25: Hemoglobin A1c > 14.00 H D 07/07/18 15:25: Sodium 131.0 L, Potassium 4.00, Chloride 90.0 L, Carbon Dioxide 30.0, Anion Gap 15.00, BUN 10.0, Creatinine 0.80, Estimated GFR (MDRD) 100.00, BUN/Creatinine Ratio 12.50, Glucose 444.0 H, Uric Acid 5.56, Calcium 9.30, Total Bilirubin 0.60, AST 26.0, ALT 32.0, Alkaline Phosphatase 118.0, Total Protein 7.60, Albumin 4.10, Globulin 3.50, Albumin/Globulin Ratio 1.17, Triglycerides 478.9 H, Cholesterol 268.0 H, LDL Cholesterol, Calc , VLDL Cholesterol , HDL Cholesterol 31.6 L, Cholesterol/HDL Ratio 8.5 H, TSH 2.500 07/07/18 15:25: WBC 9.34, RBC 5.35, Hgb 15.8, Hct 47.2, MCV 88.2, MCH 29.5, MCHC 33.5, RDW Coeff of Christiano 13.3, Plt Count 255, Immature Gran % (Auto) 0.6, Neut % (Auto) 62.7, Lymph % (Auto) 23.4, [place] % (Auto) 7.4, Eos % (Auto) 4.5, Baso % (Auto) 1.4, Immature Gran # (Auto) 0.1, Neut # (Auto) 5.9, Lymph # (Auto ) 2.2, [place] # (Auto) 0.7, Eos # (Auto) 0.4, Baso # (Auto) 0.1 ASSESSMENT: 1. Uncontrolled diabetes mellitus, type 2 - A1C greater than 14 2. Severe dyslipidemia 3. Obesity 4. Schizophrenia 5. Bipolar disorder 6. Depression/anxiety 7. Panic attacks 8. History of hypertension 9. Smoker PLAN: 1. Echocardiogram 2. Lipitor 40 mg daily 3. Baby ASA 4. Cozaar 25 mg daily 5. D/C Humalog 6. Sliding scale insulin 7. Carotid scan 8. The patient sees Dr. Crespo, psychiatrist for psych medications Plan and coordination of the patient's care discussed in the presence of Senior Analyst and nurse. CONDITION: Stable SCRIBED BY: DANIELLE CHÁVEZ [employer] Teacher scribed while in presence of service performed by Dr. Jain/Klaudia Stevens APRN on 07/08/18 ([id number])
[2018-07-08] MEDS: NEURONTIN PO SCH ×4 (08:51→14:14)
[2018-07-08] MEDS: SYMBICORT 160-4.5 MCG INHALER IH SCH (08:51)
[2018-07-08] MEDS: PROAIR HFA IH PRN ×2 (08:52→12:40)
[2018-07-08] MEDS: NORCO 7.5-325 PO PRN (08:57)
[2018-07-08] MEDS ORDERED: CELEXA PO SCH (09:00)
[2018-07-08] MEDS ORDERED: NON-FORMULARY MEDICATION (Citalopram Hydrobromide [Celexa] 40 MG) PO SCH ×2 (09:00)
[2018-07-08] MEDS ORDERED: NON-FORMULARY MEDICATION (Esomeprazole Magnesium [Nexium] 20 MG) PO SCH (09:00)
[2018-07-08] MEDS ORDERED: COZAAR PO SCH (09:00)
[2018-07-08] MEDS ORDERED: SODIUM CHLORIDE 1,000 ML IV SCH (09:00)
--- NOTE | 2018-07-08 11:34 | US ---
EXAM: ULTRASOUND CAROTID DUPLEX, BILATERAL HISTORY: Weakness, headaches FINDINGS: Wiseman-scale ultrasound, color Doppler and spectral analysis was performed. Velocities are in meters per second. By wiseman scale and color Doppler imaging, there were regions of heterogeneous plaque formation identi fied within the carotid bulbs and internal carotid arteries. These regions of plaque appeared to rem ain less than 50% vessel diameter. RIGHT: External carotid artery peak systolic velocity: 1.8 Common carotid artery peak systolic velocity/end diastolic velocity: 0.48/0.12 Internal carotid artery peak systolic velocity: 2.0 ICA/CCA peak systolic velocity ratio: 4.2 ICA end diastolic velocity: 0.31 LEFT: External carotid artery peak systolic velocity: An 1.27 Common carotid artery peak systolic velocity/end diastolic velocity: 0.95/0.24 Internal carotid artery peak systolic velocity: 0.99 ICA/CCA peak systolic velocity ratio: 1.0 ICA end diastolic velocity: 0.28 The right and left vertebral arteries were antegrade. IMPRESSION: 1. By wiseman scale and color Doppler imaging, there were regions of heterogeneous plaque formation alissa ntified within the carotid bulbs and internal carotid arteries. These regions of plaque appeared to remain less than 50% vessel diameter. 2. The right internal carotid artery peak systolic velocity of 2.0 falls within the moderate range o f stenosis. Moderate indicates 50 - 69% vessel diameter. The right-sided ICA/CCA peak systolic [place] ratio of 4.2 minimally falls within the severe range of stenosis. Severe indicates greater than or equal to 70% but less than near occlusion. Consider correlation with CTA neck if indicated clini koko. 3. No sonographic evidence of hemodynamically significant stenosis within the left carotid system. 4. Both vertebral arteries were antegrade. ,
--- NOTE | 2018-07-08 13:50 | CM.DICTOOL ---
ADMISSION: 07/07/18 16:58 DISCHARGE: 07/08/18 DATE OF SERVICE: 07/08/18 FINAL DIAGNOSIS UNCONTROLLED DM NONCOMPLIANCE WITH MEDICATIONS, LIFESTYLE AND FOLLOW UP DYSLIPIDEMIA DIABETIC NEUROPATHY HYPERTENSION ASTHMA/COPD/EVERYDAY SMOKER SLEEP APNEA, 05/30 CHRONIC ARTHRITIS GERD KIDNEY STONES BY HISTORY MULTI-LEVEL THORACIC DISC DISEASE (PAIN MANAGEMENT) CHRONIC ARTHRITIS-GENERALIZED BLINDNESS, RIGHT EYE ANXIETY/DEPRESSION PANIC DISORDER SCHIZOPHRENIA (DR. JOSÉ MIGUEL MELENDEZ, PSYCHIATRIST) BIPOLAR DISORDER (DR. JOSÉ MIGUEL MELENDEZ, PSYCHIATRIST) TOTAL LEFT SHOULDER ARTHROPLASTY RIGHT SHOULDER SURGERY HERNIA REPAIN VASCECTOMY LEG STENT APPLICATIONS KNEE PROCEDURE LAST VITALS Temp Pulse Resp BP Pulse Ox 97.7 F 76 20 110/57 L 92 L 07/08/18 05:05 07/08/18 05:05 07/08/18 05:05 07/08/18 05:05 07/08/18 05:05 TAKE THESE MEDICATIONS AT HOME Albuterol Sulfate (Ventolin Hfa) 2 puff IH TID PRN PRN Reason: soa Last Admin: 07/08/18 08:52 Dose: 2 puff Alprazolam (Xanax) 1 mg PO QID [facility] Last Admin: 07/08/18 08:50 Dose: 1 mg Aspirin (Aspirin Ec) 81 mg PO DAILYWM [facility] Last Admin: 07/08/18 08:53 Dose: 81 mg Atorvastatin Calcium (Lipitor) 40 mg PO BEDTIME [facility] Budesonide/Formoterol Fumarate (Symbicort 160-4.5 Mcg Inhaler) 2 puff IH BID [facility] Last Admin: 07/08/18 08:51 Dose: 2 puff Citalopram Hydrobromide (Celexa) 40 mg PO DAILY [facility] Last Admin: 07/08/18 08:50 Dose: 40 mg Esomeprazole Magnesium (Nexium) 20 mg PO DAILY Gabapentin (Neurontin) 400 mg PO QID [facility] Last Admin: 07/08/18 08:51 Dose: 400 mg Hydrocodone Bitart/Acetaminophen ([place] 7.5-325) 1 tab PO Q6HR PRN PRN Reason: Pain Last Admin: 07/08/18 08:57 Dose: 1 tab Insulin Glargine (Lantus) 20 unit SUBCUT BEDTIME [facility] Last Admin: 07/07/18 21:52 Dose: 20 unit Losartan Potassium (Cozaar) 25 mg PO DAILY [facility] Last Admin: 07/08/18 09:13 Dose: 25 mg Quetiapine Fumarate (Seroquel) 300 mg PO BEDTIME [facility] Tizanidine HCl (Zanaflex) 4 mg PO TID PRN PRN Reason: KIDNEY PAIN Trazodone HCl (Desyrel) 150 mg PO BEDTIME [facility] ALL[facility]GIES guaifenesin [From Mucinex] Adverse Reaction (Verified 07/07/18 13:37) metformin Adverse Reaction (Verified 07/07/18 13:37) NEW PRESCRIPTIONS: Aspirin [Aspirin EC] 81 mg PO DAILY #30 tablet.dr 07/08/18 Atorvastatin Calcium [Lipitor] 40 mg PO BEDTIME #10 tablet 07/08/18 Insulin Glargine,Hum.rec.anlog [Lantus] 20 unit SUBCUT BEDTIME #1 ml 07/08/18 Losartan Potassium [Cozaar] 25 mg PO DAILY #10 tablet 07/08/18 Blood sugar monitor and testing supplies for ac and hs monitoring SMOKING: CURRENT EVERYDAY SMOKER PATIENT HAS RECEIVED INFORMATION/TEACHING REGARDING THE IMPORTANCE OF COMPLETE CESSATION OF TOBACCO USE. HE IS MADE AWARE OF THE RISKS TO HIS CARDIOPULMONARY HEALTH AND THE BENEFITS OF COMPLETE CESSATION. HE HAS NOT VERBALIZED ANY PLANS TO STOP SMOKING. DISEASE SPECIFIC EDUCATION: DIABETES AND MANAGEMENT DYSLIPIDEMIA AND MANAGEMENT COMPLIANCE WITH MEDICATIONS AND LIFESTYLE HOME MEDICATIONS REVIEWED WITH THE PATIENT NEW PRESCRIPTIONS WITH SIDE EFFECTS AND RISKS SUCH RHABDOMYOLYSIS AND MYOSITIS FOLLOW UP WITH PRIMARY CARE PROVIDER LAB REVIEW: 07/08/18 05:05 07/08/18 05:05 07/08/18 05:05: Sodium 134.0 L, Potassium 3.95, Chloride 94.8 L, Carbon Dioxide 33.0 H, Anion Gap 10.15, BUN 11.6, Creatinine 0.78, Estimated GFR (MDRD) 103.00 , BUN/Creatinine Ratio 14.87, Glucose 278.9 H D, Calcium 8.84, Total Bilirubin 0.75, AST 28.2, ALT 25.1, Alkaline Phosphatase 98.9, Total Protein 6.78, Albumin 3.55, Globulin 3.23, Albumin/Globulin Ratio 1.09 07/08/18 05:05: WBC 7.70, RBC 4.87, Hgb 14.4, Hct 43.0, MCV 88.3, MCH 29.6, MCHC 33.5, RDW Coeff of Christiano 13.3, Plt Count 214, Immature Gran % (Auto) 0.5, Neut % (Auto) 58.4, Lymph % (Auto) 26.5, [place] % (Auto) 8.1, Eos % (Auto) 5.3, Baso % (Auto) 1.2, Immature Gran # (Auto) 0.0, Neut # (Auto) 4.5, Lymph # (Auto ) 2.0, [place] # (Auto) 0.6, Eos # (Auto) 0.4, Baso # (Auto) 0.1 07/07/18 15:45: Urine Color Yellow, Urine Clarity Clear, Urine pH 6.5, Ur Specific [place] <=1.005, Urine Protein Negative, Urine Glucose (UA) 2+, Urine Ketones Negative, Urine Blood Negative, Urine Nitrite Negative, Urine Bilirubin Negative, Urine Urobilinogen 0.2, Ur Leukocyte Esterase Negative 07/07/18 15:30: ESR 16 H 07/07/18 15:25: Hemoglobin A1c > 14.00 H D 07/07/18 15:25: Sodium 131.0 L, Potassium 4.00, Chloride 90.0 L, Carbon Dioxide 30.0, Anion Gap 15.00, BUN 10.0, Creatinine 0.80, Estimated GFR (MDRD) 100.00, BUN/Creatinine Ratio 12.50, Glucose 444.0 H, Uric Acid 5.56, Calcium 9.30, Total Bilirubin 0.60, AST 26.0, ALT 32.0, Alkaline Phosphatase 118.0, Total Protein 7.60, Albumin 4.10, Globulin 3.50, Albumin/Globulin Ratio 1.17, Triglycerides 478.9 H, Cholesterol 268.0 H, LDL Cholesterol, Calc , VLDL Cholesterol , HDL Cholesterol 31.6 L, Cholesterol/HDL Ratio 8.5 H, TSH 2.500 07/07/18 15:25: WBC 9.34, RBC 5.35, Hgb 15.8, Hct 47.2, MCV 88.2, MCH 29.5, MCHC 33.5, RDW Coeff of [place]o 13.3, Plt Count 255, Immature Gran % (Auto) 0.6, Neut % (Auto) 62.7, Lymph % (Auto) 23.4, [place] % (Auto) 7.4, Eos % (Auto) 4.5, Baso % (Auto) 1.4, Immature Gran # (Auto) 0.1, Neut # (Auto) 5.9, Lymph # (Auto ) 2.2, [place] # (Auto) 0.7, Eos # (Auto) 0.4, Baso # (Auto) 0.1 PLAN: DISCHARGE HOME TODAY, 07/08/18 RETURN TO SEE YOUR PRIMARY CARE PROVIDER, JEFRY MORALES, AT THE [facility] IN [facility] ON 07/15/18 AT [address] [place] [address]# [phone] JOSÉ MIGUEL MELENDEZ, YOUR PSYCHIATRIST, IN [place], [place] RESUME YOUR HOME MEDICATIONS PER LIST PROVIDED BY THE NURSING STAFF NEW PRESCRIPTIONS (SEE YOUR PRIMARY CARE PROVIDER FOR INSTRUCTIONS REGARDING CONTINUANCE OF THESE MEDS) COATED ASPIRIN 81 MG, TAKE ONE TABLET BY MOUTH DAILY ([id number] PURCHASE) [place] POTASSIUM (COZAAR) 25 MG, TAKE ONE TABLET BY MOUTH DAILY ATORVASTATIN CALCIUM (LIPITOR) 40 MG, TAKE ONE TABLET BY MOUTH AT BEDTIME INSULIN GLARGINE (LANTUS) 20 UNITS INJECT SUBCUTANEOUSLY AT BEDTIME BLOOD GLUCOSE MONITOR FOR TESTING BEFORE MEALS AND AT BEDTIME TESTING SUPPLIES ACTIVITY KEEP A LOG OF YOUR BLOOD SUGARS. TAKE THE LOG TO YOUR FOLLOW UP VISIT AT [facility] GET PLENTY OF REST AT HOME. GRADUALLY INCREASE YOUR ACTIVITY LEVEL ACCORDING TO YOUR TOLERATION DIET CONSISTENT CARBS SUMMARY THE PATIENT IS ALERT AND ORIENTED X3. HE IS INDEPENDENT WITH ADL'S AND CURRENTLY RESIDES AT HOME ALONE. HE DESIRES TO RETURN THERE AT DISCHARGE. HE HAS NOT REQUIRED HOME HEALTH OR HOMEMAKING SERVICES. HE NEEDS A BLOOD SUGAR TESTING MONITOR AND TESTING SUPPLIES SO THAT HE CAN PROPERLY MONITOR HIS BLOOD SUGARS AT HOME. THE SKIN TURGOR IS INTACT AND WITHOUT DECUBITUS ULCERS. HYDRATION AND NUTRITIONAL STATUS ARE GOOD. THE PATIENT HAS RECEIVED DIABETIC INSTRUCTION AND INFORMATION REGARDING LIFESTYLE CHANGES NEEDED TO BETTER CONTROL HIS DIABETES. HE IS AGREEABLE TO FOLLOW UP WITH HIS PRIMARY CARE PROVIDER, JASON MORALES, AT THE [facility] IN [place], [place] WHERE HE IS ESTABLISHED. CURRENT CODE STATUS FULL CODE NAVDEEP RANDHAWA APRN MARLEE FULLER M.D.
[2018-07-08] MEDS ORDERED: DESYREL PO SCH (21:00)
[2018-07-08] MEDS ORDERED: SEROQUEL PO SCH (21:00)
[2018-07-08] MEDS ORDERED: LIPITOR PO SCH (21:00)
--- NOTE | 2018-07-11 09:53 | ECHO2D ---
Date of Exam: 07/11/18 Ordering Physician: DR. MARLEE FULLER--HOSPITALIST Room #: 120 Reason for Echo: WEAKNESS, SOB, DYSLIPIDEMIA, DM2--UNCONTROLLED M-Mode Normal Adult Results LV Dimensions Normal Adult Results AoV Opening excursions >1.6 >1.6 LVEDD-base- 3.5-5.8 5.4 Ao root dimensions 2.0-3.7 3.8 LVESD-base- 3.1-4.6 L. Atrium dimensions 1.9-3.8 4.5 Post. Wall thickness 0.8-1.1 1.3 IV septum (thickness) 0.7-1.2 1.3 Post. Wall excursion 0.72-1.3 NORMAL Septal motion NORMAL Systolic motion R. Ventricular cavity 1.5-2.0 NORMAL LVEF 60% 48% Paradoxical septal wall motion NORMAL 2-D : ENLARGED LEFT VENTRICLE CAVITY--NORMAL LEFT VENTRICULAR CONTRACTILITY-- NORMAL VALVES, NO EFFUSION, NO THROMBUS, NORMAL LEFT VENTRICLE SIZE M-MODE: MV: E > A WAVE AV: NORMAL TV: NORMAL PV: CHAMBER SIZE: ENLARGED LEFT ATRIAL CAVITY WALL MOTION: NORMAL PERICARDIUM: NORMAL INTERPRETATION: 1. LEFT VENTRICULAR HYPERTROPHY WITH ENLARGED LEFT ATRIAL CAVITY 2. STIFF LEFT VENTRICLE WITH EJECTION FRACTION 47% 3. NORMAL VALVES MTDD
--- NOTE | 2018-07-11 10:00 | PN ---
CODE 24 HOUR OBSERVATION. MTDD
--- NOTE | 2018-07-11 10:00 | DS ---
DATE OF SERVICE: 07/08/18 FINAL DIAGNOSIS: UNCONTROLLED DM NONCOMPLIANCE WITH MEDICATIONS, LIFESTYLE AND FOLLOW UP DYSLIPIDEMIA DIABETIC NEUROPATHY HYPERTENSION ASTHMA/COPD/EVERYDAY SMOKER SLEEP APNEA, 05/30 CHRONIC ARTHRITIS GERD KIDNEY STONES BY HISTORY MULTI-LEVEL THORACIC DISC DISEASE (PAIN MANAGEMENT) CHRONIC ARTHRITIS-GENERALIZED BLINDNESS, RIGHT EYE ANXIETY/DEPRESSION PANIC DISORDER SCHIZOPHRENIA (DR. JOSÉ MIGUEL MELENDEZ, PSYCHIATRIST) BIPOLAR DISORDER (DR. JOSÉ MIGUEL MELENDEZ, PSYCHIATRIST) TOTAL LEFT SHOULDER ARTHROPLASTY RIGHT SHOULDER SURGERY HERNIA REPAIN VASECTOMY LEG STENT APPLICATIONS KNEE PROCEDURE RIGHT SIDED CAROTID STENOSIS 50-70%. LAST VITALS Temp Pulse Resp BP Pulse Ox 97.7 F 76 20 110/57 L 92 L 07/08/18 05:05 07/08/18 05:05 07/08/18 05:05 07/08/18 05:05 07/08/18 05:05 TAKE THESE MEDICATIONS AT HOME Albuterol Sulfate (Ventolin Hfa) 2 puff IH TID PRN Alprazolam (Xanax) 1 mg PO QID LAMAR Aspirin (Aspirin Ec) 81 mg PO DAILYWM LAMAR Atorvastatin Calcium (Lipitor) 40 mg PO BEDTIME LAMAR Budesonide/Formoterol Fumarate (Symbicort 160-4.5 Mcg Inhaler) 2 puff IH BID LAMAR Citalopram Hydrobromide (Celexa) 40 mg PO DAILY LAMAR Esomeprazole Magnesium (Nexium) 20 mg PO DAILY Gabapentin (Neurontin) 400 mg PO QID LAMAR Hydrocodone Bitart/Acetaminophen ([place] 7.5-325) 1 tab PO Q6HR PRN Insulin Glargine (Lantus) 20 unit SUBCUT BEDTIME LAMAR Losartan Potassium (Cozaar) 25 mg PO DAILY LAMAR Quetiapine Fumarate (Seroquel) 300 mg PO BEDTIME LAMAR Tizanidine HCl (Zanaflex) 4 mg PO TID PRN Trazodone HCl (Desyrel) 150 mg PO BEDTIME LAMAR ALLERGIES: guaifenesin [From Mucinex] Adverse Reaction (Verified 07/07/18 13:37) metformin Adverse Reaction (Verified 07/07/18 13:37) NEW PRESCRIPTIONS: Aspirin [Aspirin EC] 81 mg PO DAILY #30 tablet. 07/08/18 Atorvastatin Calcium [Lipitor] 40 mg PO BEDTIME #10 tablet 07/08/18 Insulin Glargine,Hum.rec.anlog [Lantus] 20 unit SUBCUT BEDTIME #1 ml 07/08/18 Losartan Potassium [Cozaar] 25 mg PO DAILY #10 tablet 07/08/18 Blood sugar monitor and testing supplies for ac and hs monitoring SMOKING: CURRENT EVERYDAY SMOKER PATIENT HAS RECEIVED INFORMATION/TEACHING REGARDING THE IMPORTANCE OF COMPLETE CESSATION OF TOBACCO USE. HE IS MADE AWARE OF THE RISKS TO HIS CARDIOPULMONARY HEALTH AND THE BENEFITS OF COMPLETE CESSATION. HE HAS NOT VERBALIZED ANY PLANS TO STOP SMOKING. DISEASE SPECIFIC EDUCATION: DIABETES AND MANAGEMENT DYSLIPIDEMIA AND MANAGEMENT COMPLIANCE WITH MEDICATIONS AND LIFESTYLE HOME MEDICATIONS REVIEWED WITH THE PATIENT NEW PRESCRIPTIONS WITH SIDE EFFECTS AND RISKS SUCH RHABDOMYOLYSIS AND MYOSITIS FOLLOW UP WITH PRIMARY CARE PROVIDER DISCHARGE INSTRUCTIONS: DISCHARGE HOME TODAY, 07/08/18. RETURN TO SEE YOUR PRIMARY CARE PROVIDER, JEFRY HOLLEY, AT THE [facility] ON 07/15/18 AT [address] at [address] [place] [address]# [phone]. FOLLOW UP WITH DR. JOSÉ MIGUEL MELENDEZ, YOUR PSYCHIATRIST, IN [place], [place]. RESUME YOUR HOME MEDICATIONS PER LIST PROVIDED BY THE NURSING STAFF ACTIVITY: KEEP A LOG OF YOUR BLOOD SUGARS. TAKE THE LOG TO YOUR FOLLOW UP VISIT AT [facility] GET PLENTY OF REST AT HOME. GRADUALLY INCREASE YOUR ACTIVITY LEVEL ACCORDING TO YOUR TOLERATION DIET: CONSISTENT CARBS HOSPITAL COURSE: 58 year old white male hospitalized with uncontrolled diabetes mellitus. The patient was seen in the office by Dr. Ventura/ Michael MOONEY. He was sent to the emergency room and they declined to hospitalized him so being iron setter for hospitalist I ended up admitted this patient under by service. The patient practically had no complaints. He had walked into [facility] here to establish new primary care. The patient has multiple medical problems. He has been off his Statin, insulin and most of the medications pertaining to his medical problems other than the ones that are managed by Dr. Fields, psychiatrist. The patient is intelligent, heavy smoker. He had been to [facility] [place] ER with left arm numbness, weakness but when asked about it and at that time the patient was advised hospitalization to which he declined. During the stay in the hospital and the patient had an EKG which was practically normal with no acute changes. His telemetry did not show any arrhythmias. The patient did not have any symptoms of CHF or coronary insufficiency. The patient's A1c is more than 14 with total cholesterol of more than 260 with triglycerides of more than 400. The patient was started on Atorvastatin, side effects like rhabdomyolysis, mild ascites, myalgia discussed with it. If it happens to stop the Atorvastatin and contact the primary care. The patient was also started on Insulin Lantus 20 units. The patient used to take Lantus 27 units a year prior to that but he stopped on his own. He is unable to tolerated Metformin. Coronary disease and Risk factors discussed with him in detail and how to modify them. Counseling for smoking done. The patient is overweight with BMI of more than 30. Weight reduction diet discussed with him. The patient's PFT showed severe chronic lung disease with FEV1 of 40% with 1.6 liters. Echocardiogram showed LVH with enlargement of the left arterial cavity with stiff left ventricle ejection fraction 47%. He was explained about these findings. The patient is up and about and does all activity of daily living. Diabetic education carried out with explaining all the complications involving most of the body organs were discussed with him. A1c goal is 6-7 discussed with him. Non HDL goal 100 discussed with him. The patient is extremely high risk for acute CVA event. Primary care Jefry Holley is going to see him Next Wednesday on 07/15/18. He has been explained about his. He is advised to keep daily log of his blood sugar three times a day. PROGNOSIS: Poor. CC: Dr. Audrey Holley. ADDENDUM: ON ADMISSION THE PATIENT HAD NORMAL ARTERIAL BLOOD GASSES. NO EVIDENCE OF DIABETIC KETOACIDOSIS. KETOACIDOSIS AND DIABETIC COMMA DISCUSSED WITH THE PATIENT. THE PATIENT WAS ALSO STARTED ON COZAAR 25MG ARB FOR KIDNEY PROTECTION FROM DIABETES. U/A WAS DONE UNKNOWN ABOUT THE PATIENT WHETHER PROTEIN IN THE URINE OR NOT BUT IF IT SI NOT DONE SHOULD BE DONE BY PRIMARY CARE. THE PATIENT IS BEING FOLLOWED BY DR. MELENDEZ. THE PATIENT'S MENTAL STATUS IS NORMAL AND HE IS NOT DEPRESSED AND HIS BEHAVIOR IS NORMAL. HIS THOUGH PROCESS IS NORMAL. HE IS INTELLIGENT. NONCOMPLIANT OF LIFESTYLE, MEDICATIONS AND FOLLOWUPS. STRONGLY ADVISED TO FOLLOWUP WITH DR. MELENDEZ. STRONGLY ADVISED TO FOLLOWUP WITH PRIMARY CARE, JEFRY HOLLEY. The RECEIVED THE REPORT IN THE OFFICE AT 3:45PM ABOUT PATIENT'S CAROTID SCAN. BY THEN THE PATIENT HAD ALREADY LEFT AND WAS DISCHARGED. THE PATIENT WAS CALLED AND MESSAGE WAS LEFT ON HIS PHONE. ANTON THE CONTACT OF THE PATIENT WAS CALLED SHE ANSWERED THE PHONE AND SHE WAS ADVISED FOR THE PATIENT TO GET IN TOUCH WITH US AND THE NUMBER WAS LEFT WITH HER. BY THEN THE PATIENT HAD ALREADY CALLED THE OFFICE. NURSE PRACTITIONER, NAVDEEP TALKED TO THE PATIENT AND HE SCHEDULED FOR CT ANGIOGRAM OF NECK ON WEDNESDAY AT 8: 00. THE PATIENT SAYS THAT HE HAS A COURT DATE WITH REHABILITATION AIDE/SCHEDULER CONSUELO KAVON AND WAS EXPLAINED THAT EVERYTHING WILL BE TAKEN CARE OF AND HE NEEDS TO COME FOR CT ANGIOGRAM AND HE AGREED THAT HE WOULD BE THERE. HE WAS EXPLAINED ABOUT THE FINDINGS ON CAROTID SCAN. HE WAS EXPLAINED THAT START TO TAKE MEDICATIONS RIGHT AWAY, DON'T SMOKE. IF ANY SYMPTOMS OF ANY STROKE GO TO THE NEAREST EMERGENCY ROOM [facility] AND HIS MEDICATIONS NEEDED TO BE STARTED SOON POSSIBLE THAT I HAD PRESCRIBED. IN ADDITION TO THAT HE WILL BE TAKING BABY ASPIRIN 81MG AND PLAVIX 75 STARTING TODAY. THEY WERE CALLED IN BY CATE TO ONE OF THE PHARMACY LIKELY ONE OF THE [facility]. THE PATIENT WAS ALSO INSTRUCTED TO COME BY TO THE OFFICE FOR CHECK UP AFTER THE SCAN IS DONE ON WEDNESDAY. IT IS TO BE NOTED THAT THE PATIENT DURING THE STAY IN THE HOSPITAL HAD NO NEUROLOGICAL DEFICIT. HE WAS UP AND ABOUT AND MORE CONCERNED ABOUT SHAKING OF BOTH HANDS WHICH HAPPENED OFF AND ON. THESE CALLS WERE MADE AND TALKS WERE DONE BY WYATT APPROXIMATELY 4:15PM. TIME SPENT: More than 60 minutes. MELCHOR
== END 2018-07-08 14:15 | disposition home or self-care (01) ==
LOC: ED 13:30 → INTOOBSV 16:58 → MEDSURG B 16:58
PROVIDERS: ADMIT Internal Medicine; ATTEND Internal Medicine
DX: E78.5 Hyperlipidemia, unspecified (principal); M79.632 Pain in left forearm; Z72.0 Tobacco use; E66.9 Obesity, unspecified; F20.9 Schizophrenia, unspecified; F41.8 Other specified anxiety disorders; F31.9 Bipolar disorder, unspecified; F41.0 Panic disorder [episodic paroxysmal anxiety]; Z91.14 Patient's other noncompliance with medication regimen; E09.40 Drug or chemical induced diabetes mellitus with neurological complications with diabetic neuropathy, unspecified; I10 Essential (primary) hypertension; J44.9 Chronic obstructive pulmonary disease, unspecified; G47.30 Sleep apnea, unspecified; K21.9 Gastro-esophageal reflux disease without esophagitis; M19.90 Unspecified osteoarthritis, unspecified site
CPT/HCPCS: 36415; 80053; 80061; 81001; 82962; 83036; 84443; 84550; 85025; 85651; 93005; 93010; 96372; 99284

== ENCOUNTER 2018-07-11 07:38 | Outpatient (CLI) ==
--- NOTE | 2018-07-11 09:43 | CT ---
EXAM: CTA neck with contrast HISTORY: Abnormal ultrasound exam TECHNIQUE: Multi-slice transaxial helical images of the neck are acquired using a standard angiogra m protocol following administration of intravenous contrast. Multiplanar MIP and 3-D volume rendered images are provided. Intrepretation performed utilizing NASCET creiteria. COMPARISON: Carotid Doppler performed 07/08/2018 FINDINGS: Vascular: Neck: The aortic arch appears unremarkable. A few small scattered calcified plaques are present within the aortic arch. The innominate artery, left common carotid, and the right subclavian artery appears un remarkable. Scattered calcified plaques are present at the bilateral carotid bulbs with a short segm ent narrowing in the right proximal internal carotid artery/level of the bulb with a focal area of ap proximately 70% intraluminal narrowing. No evidence of hemodynamically significant stenosis is present within the left common carotid or inte rnal carotid artery. The bilateral vertebral arteries are normal in course and caliber without evidence of flow-limiting s tenosis. The visualized basilar artery and middle cerebral arteries appear unremarkable. Nonvascular: There is mild tonsillar asymmetry as seen on axial image number 59 that is likely accentuated by posi tioning. If clinical concern exists for aerodigestive tract pathology, direct visualization could be performed. The bilateral parotids, submandibular, and thyroid glands appear unremarkable. There is no evidence of cervical adenopathy. The visualized paranasal sinuses are clear. Mastoid air cells are well-aerated. The visualized intracranial structures appear unremarkable. Ground-glass opacitie s are seen in the left upper lobe on axial image #7. IMPRESSION: 1. Short segment of significant atherosclerotic disease in the right common dye internal carotid art lebron bifurcation at the level of the bulb with approximately 70% intraluminal narrowing. 2. Otherwise, no significant flow-limiting stenosis is seen on the exam. 3. Ground-glass in the left upper lobe likely inflammation or early infection 4. Mild tonsillar asymmetry of the aerodigestive tract with a calcification in the right tonsil. If clinical concern exists for aerodigestive tract pathology, direct visualization could be performed
== END 2018-07-11 07:39 | disposition home or self-care (01) ==
LOC: RAD 07:38
PROVIDERS: ATTEND Internal Medicine
DX: R94.39 Abnormal result of other cardiovascular function study (principal)

== ENCOUNTER 2018-08-03 08:25 | Outpatient (CLI) | payer OTHER ==
--- NOTE | 2018-08-03 10:48 | CT ---
EXAM: CT of the lumbar spine with and without contrast History: Lower back pain. Comparison: CT lumbar spine 07/14/2017 Technique: Multiplanar CT images through the lumbar spine were obtained with and without the adminis tration of IV contrast Findings: Left common iliac vein stent is again seen in place. The liver is fatty. Atherosclerotic vascular calcifications. No acute fracture or subluxation of the lumbar spine. Severe progressive disc space narrowing at L3- L4 with endplate sclerosis, vacuum disc phenomenon and endplate erosions which are new compared to th e prior study. Moderate disc space narrowing again seen at L4-L5. T12-L1: No significant bony central canal stenosis or bony neural foraminal narrowing. L1-L2: No significant bony central canal stenosis or bony neural foraminal narrowing. L2-L3: Small disc bulge with mild central canal stenosis. Mild to moderate bilateral bony neural fo raminal narrowing secondary to ligamentous and facet hypertrophy. L3-L4: Suspect at least moderate to severe central canal stenosis. Severe bilateral bony neural for aminal narrowing secondary to ligamentous and facet hypertrophy. L4-L5: Moderate central canal stenosis. Severe right and moderate to severe left bony neural forami nal narrowing secondary to ligamentous and facet hypertrophy. L5-S1: No significant bony central canal stenosis. Moderate to severe right and mild left bony neur al foraminal narrowing secondary to ligamentous and facet hypertrophy. No paraspinal masses or enhancing paraspinal fluid collections. Impression: 1. Unexpected finding: Findings suspicious for osteomyelitis/diskitis at L3-L4. Recommend further evaluation with lumbar spine MRI with and without contrast. 2. Level by level analysis as detailed above with severe central canal stenosis at L3-L4. This can also be evaluated with lumbar spine MRI.
--- NOTE | 2018-08-03 10:50 | DI ---
Exam: Three views of the right shoulder. Comparison: Chest x-ray performed 07/07/2018. Reason for exam: Osteoarthritis. FINDINGS: No acute fracture or malalignment. The joint spaces are well maintained. Mild degenerati ve disease with joint space narrowing. Impression: No acute fracture or malalignment is seen in the right shoulder.
--- NOTE | 2018-08-03 10:53 | DI ---
Exam: Three views of the left knee. Comparison: None available. Reason for exam: Pain. FINDINGS: Operative changes are seen in the left knee. There is no evidence of periprosthetic fract ure or hardware complication. Osseous densities in the joint space likely postoperative. Impression: No acute fracture or dislocation is seen in the left knee. No evidence of periprosthetic fracture or hardware complication. Densities within the joint space may be secondary to summation on the frontal view. If clinical conc nicolette exists, further evaluation could be performed.
--- NOTE | 2018-08-03 10:55 | DI ---
Exam: Four views of the left shoulder. Comparison: None available. Reason for exam: Left shoulder pain. FINDINGS: Operative changes are seen after left shoulder arthroplasty. Degenerative changes are see n in the bony glenoid. No evidence of periprosthetic fracture or hardware complication. Impression: No acute fracture or dislocation left shoulder. Moderate degenerative disease without evidence of hardware complication
== END 2018-08-03 08:26 | disposition home or self-care (01) ==
LOC: RAD 08:25
PROVIDERS: ATTEND Pain Medicine Interventional Pain Medicine
DX: M51.36 Other intervertebral disc degeneration, lumbar region (principal); M51.37 Other intervertebral disc degeneration, lumbosacral region; M47.816 Spondylosis without myelopathy or radiculopathy, lumbar region; M47.817 Spondylosis without myelopathy or radiculopathy, lumbosacral region; M54.5 Low back pain; M19.011 Primary osteoarthritis, right shoulder; M19.012 Primary osteoarthritis, left shoulder; M25.562 Pain in left knee

== ENCOUNTER 2018-08-04 13:00 | Outpatient (CLI) | payer OTHER | END 2018-08-04 13:01 | disposition home or self-care (01) | LOC: LAB 13:00 | PROVIDERS: ATTEND Pain Medicine Interventional Pain Medicine | DX: Z51.81 Encounter for therapeutic drug level monitoring (principal); Z79.891 Long term (current) use of opiate analgesic; R93.89 Abnormal findings on diagnostic imaging of other specified body structures | CPT/HCPCS: 36415; 80048; 85025; 85651; 86140 ==

== ENCOUNTER 2018-08-10 08:44 | Outpatient (CLI) ==
--- NOTE | 2018-08-10 11:41 | CT ---
Exam: CT cervical spine with and without contrast. HISTORY: Cervicalgia. Pain getting worse, weakness on the left side. No prior surgery. Procedures: 2 mm contiguous axial images were obtained through the cervical spine prior to and follo wing intravenous administration of contrast. Sagittal and coronal reformatted images were also creat ed and reviewed. Comparison: CT neck with contrast and CT angiogram 07/11/2018. Findings: The bilateral parotid and submandibular glands appear grossly symmetric within normal limi ts. There is stable appearance of the mild tonsillar asymmetry and small calcification in the region of the bilateral peritonsillar pillar is. The epiglottis does not appear edematous. The thyroid gl and appears within normal limits. Subcentimeter lymph nodes are noted throughout the neck, without f rank lymphadenopathy. There is diffuse atherosclerotic disease with redemonstration of severe stenos is in the proximal right internal carotid artery. The vessel appears opacified above this. Limited visualization of the lung apices demonstrates no pneumothorax. Bone windows demonstrate subtle reversal of the usual cervical lordosis with multilevel mild to moder ate degenerative disc and facet arthropathy, greatest at C5-6. No acute fracture is seen. There is normal aeration of the mastoid air cells. Mild mucosal thickening is noted in the visualized ethmoid air cells. Individual disc levels are evaluated as follows At C2-3 there is a minimal disc bulge without central spinal canal stenosis or significant neural for aminal stenosis. At C3-4 there is a minimal disc bulge without central spinal canal stenosis or significant neural for aminal stenosis. At C4-5 there is no significant disc bulge, central spinal canal stenosis. There is moderate right-s ided neural foraminal stenosis secondary to facet and uncinate hypertrophy. At C5-6 there is a posterior midline disc marginal osteophyte which reduces the AP diameter of the sp inal canal to 7 mm. There is moderate to severe right-sided neural foraminal stenosis secondary to f acet and uncinate hypertrophy. At C6-7 there is beam attenuation artifact which limits visualization. There appears to be a mild di sc bulge which reduces the AP diameter of the spinal canal to 8 mm. There is mild right-sided neural foraminal stenosis. At C7-T1 there is beam attenuation artifact without midline central spinal canal stenosis. There is mild right-sided neural foraminal stenosis. Impressions: Straightening of the usual cervical lordosis. Multilevel degenerative disc and facet a rthropathy greatest at C5-6. No acute fracture or listhesis. Posterior disc marginal osteophyte at C5-6 results in central canal stenosis to 7 mm. Central canal stenosis to 8 mm at C6-7. Moderate to severe right-sided neural foraminal stenosis at C5-6. Moderate neural foraminal stenosis on the right at C4-5 with mild neural foraminal stenosis on the ri ght at C6-7 and C7-T1. Severe stenosis in the proximal right internal carotid artery, also noted on the 07/11/2018 CT.
== END 2018-08-10 08:45 | disposition home or self-care (01) ==
LOC: RAD 08:44
PROVIDERS: ATTEND Pain Medicine Interventional Pain Medicine
DX: M54.2 Cervicalgia (principal)

== ENCOUNTER 2018-09-19 09:44 | Outpatient (CLI) | payer OTHER | END 2018-09-19 09:45 | disposition home or self-care (01) | LOC: LAB 09:44 | PROVIDERS: ATTEND Nurse Practitioner | DX: E11.65 Type 2 diabetes mellitus with hyperglycemia (principal); E78.2 Mixed hyperlipidemia; I10 Essential (primary) hypertension; J44.9 Chronic obstructive pulmonary disease, unspecified | CPT/HCPCS: 36415; 80048; 83036 ==

== ENCOUNTER 2021-03-23 17:07 | Inpatient (IN) ==
[2021-03-23] MEDS ORDERED: SODIUM CHLORIDE 1,000 ML IV STA ×5 (17:18→19:41)
[2021-03-23] MEDS ORDERED: LACTATED RINGERS 1,000 ML IV STA (17:21)
[2021-03-23 17:42] LABS: BASOPHILS # (AUTO) 0.1 K/uL (0-0.2); BASOPHILS % (AUTO) 0.7 % (0.0-3.0); EOSINOPHILS # (AUTO) 0.3 K/ul (0.0-0.7); EOSINOPHILS % (AUTO) 1.9 % (0.0-7.0); HEMATOCRIT 43.5 % (42.0-52.0); HEMOGLOBIN 14.1 g/dl (14.0-18.0); IMMATURE GRANULOCYTE # (AUTO) 0.1 (0.0-1.0); IMMATURE GRANULOCYTE % (AUTO) 0.3 % (0.0-5.0); LYMPHOCYTES # (AUTO) 2.1 K/uL (0.60-3.4); LYMPHOCYTES % (AUTO) 13.6 (10.0-50.0); MEAN CORPUSCULAR HEMOGLOBIN 29.6 pg (27.0-31.0); MEAN CORPUSCULAR HGB CONC 32.4 (31.8-35.4); MEAN CORPUSCULAR VOLUME 91.4 fl (80.0-94.0); MONOCYTES # (AUTO) 1.1 K/uL (0.4-2.0); MONOCYTES % (AUTO) 7.1 (0-10); NEUTROPHILS # (AUTO) 11.7 K/ul (2.0-6.9); NEUTROPHILS % (AUTO) 76.4 % (42.2-75.2); PLATELET COUNT 231 10^3/uL (140-440); RDW COEFFICIENT OF VARIATION 13.6 % (11.6-14.8); RED BLOOD COUNT 4.76 10^6/ul (4.70-6.10); WHITE BLOOD COUNT 15.31 K/ul (4.2-10.2)
[2021-03-23 17:43] LABS: BORDETELLA PARAPERTUSSIS (PCR) NOT DETECTED (NOT DETECT); BORDETELLA PERTUSSIS (PCR) NOT DETECTED (NOT DETECT); CHLAMYDIA PNEUMONIAE (PCR) NOT DETECTED (NOT DETECT); CORONAVIRUS 229E (PCR) NOT DETECTED (NOT DETECT); CORONAVIRUS HKU1 (PCR) NOT DETECTED (NOT DETECT); CORONAVIRUS NL63 (PCR) NOT DETECTED (NOT DETECT); CORONAVIRUS OC43 (PCR) NOT DETECTED (NOT DETECT); HUMAN METAPNEUMOVIRUS (PCR) NOT DETECTED (NOT DETECT); HUMAN RHINOVIRUS/ENTEROV (PCR) NOT DETECTED (NOT DETECT); INFLUENZA B (PCR) NOT DETECTED (NOT DETECT); MYCOPLASMA PNEUMONIAE (PCR) NOT DETECTED (NOT DETECT); PARAINFLUENZA VIRUS 1 (PCR) NOT DETECTED (NOT DETECT); PARAINFLUENZA VIRUS 2 (PCR) NOT DETECTED (NOT DETECT); PARAINFLUENZA VIRUS 3 (PCR) NOT DETECTED (NOT DETECT); PARAINFLUENZA VIRUS 4 (PCR) NOT DETECTED (NOT DETECT); RESPIRATORY SYNCYTIAL V (PCR) NOT DETECTED (NOT DETECT); SARS_COV_2 (PCR) NOT DETECTED (NOT DETECT)
[2021-03-23 17:54] LABS: ALANINE AMINOTRANSFERASE 15.6 U/L (0-50); ALBUMIN 3.69 g/dL (3.5-5.0); ALKALINE PHOSPHATASE 76.8 U/L (38-126); AMYLASE 47.2 U/L (30-110); ASPARTATE AMINO TRANSFERASE 19.5 U/L (17-59); BILIRUBIN,TOTAL 1.04 mg/dL (0.2-1.3); BLOOD UREA NITROGEN 17.1 mg/dL (9-20); CALCIUM 8.48 mg/dL (8.4-10.2); CARBON DIOXIDE 29.3 mmol/L (22-30.0); CHLORIDE 99.7 mmol/L (98-107); CREATINE KINASE 51.6 U/L (55-170); GLUCOSE 120.8 mg/dL (74-106); LIPASE 34.8 U/L (23-300); POTASSIUM 4.28 mmol/L (3.5-5.1); SODIUM 135.2 mmol/L (134.5-145); TOTAL PROTEIN 6.9 g/dL (6.3-8.2)
[2021-03-23 18:06] LABS: TROPONIN I 0.014 ng/ml (0.0000-0.120)
--- NOTE | 2021-03-23 18:16 | CT ---
EXAM: CT scan of the abdomen and pelvis without contrast HISTORY: Diarrhea for 6 days TECHNIQUE: Helical imaging of the abdomen pelvis was performed without contrast. 3 mm thin axial im ages and coronal and sagittal reconstructions were obtained. Comparison 05/08/2016. FINDINGS: No acute abnormalities are seen within the liver, spleen, pancreas and kidneys. The proxi mal ureters are normal size. Small nonobstructing calculi are seen within the kidneys. There is no free air. There is diffuse thickening of the wall of the proximal descending colon and splenic flexu re. Inflammatory changes are seen along the descending colon and splenic flexure. No retroperitonea l abnormalities are seen. The appendix appears normal. There is no free fluid seen within the pelvis. No lytic or blastic lesions are seen within the osseo us structures. IMPRESSION: Acute colitis of the proximal descending colon and hepatic flexure. There is no bowel obstruction. Nonobstructing nephrolithiasis seen within the kidneys. There is no ureteral obstruction. All CT scans are performed using dose optimization techniques as appropriate to the performed exam an d include at least one of the following: Automated exposure control, adjustment of the mA and/or kV according t o size, and the use of iterative reconstruction technique.
--- NOTE | 2021-03-23 18:25 | ED.PDOC ---
General ED Provider: Dr. KAYLENE ROBISON Chief Complaint: Weakness Stated Complaint: thu had diarrhea and weakness--bp 90 per ems Time Seen by Provider: 03/23/21 17:15 Mode of Arrival: Ambulance Information Source: Patient and EMT Exam Limitations: No limitations Primary Care Provider: JONATHAN REEVES Nursing and Triage Documentation Reviewed and Agree: Yes Does patient meet sepsis criteria?: No System Inflammatory Response Syndrome: Not Applicable Sepsis Protocol: For patient's 13 years and over: Temp is 96.8 and below OR 101 and greater Pulse >90 BPM Resp >20/minute Acutely Altered Mental Status Are patient's symptoms suggestive of a new infection, such as: -Pneumonia -Skin, Soft Tissue -Endocarditis -UTI -Bone, Joint Infection -Implantable Device -Acute Abdominal Infection -Wound Infection -Meningitis -Blood Stream Catheter Infection -Unknown GI Complaint Exam Vomiting/Diarrhea Complaint/Exam Onset/Duration: 2 days Symptoms Are: Still present Initial Severity: Mild Current Severity: Mild Character of Vomiting: Reports Non-bilious Character of Diarrhea: Reports Watery Aggravating: Reports Food Alleviating: Reports Clear liquids Associated Signs and Symptoms: Reports Abdominal pain and Cramping Abdominal Findings: Present None Kussmaul Respirations Present: No Differential Diagnoses: Dehydration, Viral Gastroenteritis and Bacterial Gastroenteritis Review of Systems Review Of Systems Constitutional: Reports No symptoms Eyes: Reports No symptoms Ears, Nose, Mouth, Throat: Reports No symptoms Respiratory: Reports No symptoms Cardiac: Reports No symptoms GI: Reports Abdominal pain and Diarrhea : Reports No symptoms Musculoskeletal: Reports No symptoms Skin: Reports No symptoms Neurological: Reports No symptoms Endocrine: Reports No symptoms Hematologic/Lymphatic: Reports No symptoms All Other Systems: Reviewed and Negative [facility] Medical History Asthma Bipolar 1 disorder Blind right eye Calculus of kidney Chronic arthritis Chronic obstructive pulmonary disease Depression DVT (deep venous thrombosis) Essential (primary) hypertension GERD without esophagitis Hyperlipidemia Neuropathy Panic attacks Schizophrenia Tobacco use Urinary retention Family History Mother Cerebrovascular accident FATHER Hyperlipidemia Myocardial infarction SISTER Hyperlipidemia Myocardial infarction BROTHER No problems noted. MATERNAL GRANDMOTHER No problems noted. Other Hyperthyroidism Social History History of recent travel: No Surgical History Status post hernia repair Physical Exam Physical Exam Appearance: Reports Well-appearing Ill-appearing: Not Applicable Pain Distress: Not Applicable Eyes: Reports BOGDAN, EOMI and Conjunctiva clear ENT: Reports Ears normal, Nose normal and Oropharynx normal Neck: Nonsupple Respiratory: Reports Airway patent, Breath sounds clear, Breath sounds equal and Breath sounds diminished Cardiovascular: Reports RRR, Pulses normal, No rub and No murmur GI/: Reports Soft, Nontender, No masses and Bowel sounds normal Musculoskeletal: Reports Normal strength, ROM intact, No edema and No calf tenderness Skin: Reports Warm, Dry and Normal color Neurological: Reports Sensation intact, Motor intact, Reflexes intact, Cranial nerves intact, Alert and Oriented Psychiatric: Reports Affect appropriate and Mood appropriate Interpretation Radiology Interpretation Radiology Interpretation By: Radiologist Radiology Results: Positive Exam Interpreted: CT Scan Xray Comments: notd colitis EKG Interpretation Time of EKG #1: 18:25 Rate: Normal Rhythm: Sinus Ectopy: None [place]: NL ST Segment: Normal Interpretation: normal sinus rythym Re-Evaluation Re-Evaluation Time of Re-Evaluation: 18:55 Status: Improved Vital Signs Stable: Yes Appearance: NAD Lungs: Clear Skin: Warm and Dry Neuro: Alert and Oriented X3 CV: RRR Critical Care Note Critical Care Note Total Critical Care Time (mins): 0 Course Course Hematology/Chemistry: 03/23/21 17:36 03/23/21 17:36 Orders, Labs, Meds: Lab Review 03/23/21 03/23/21 03/23/21 17:30 17:36 17:36 WBC 15.31 H RBC 4.76 Hgb 14.1 Hct 43.5 MCV 91.4 MCH 29.6 MCHC 32.4 RDW Coeff of Christiano 13.6 Plt Count 231 Immature Gran % (Auto) 0.3 Neut % (Auto) 76.4 H Lymph % (Auto) 13.6 Mccracken % (Auto) 7.1 Eos % (Auto) 1.9 Baso % (Auto) 0.7 Neut # (Auto) 11.7 H Lymph # (Auto) 2.1 Mccracken # (Auto) 1.1 Eos # (Auto) 0.3 Baso # (Auto) 0.1 Immature Gran # (Auto) 0.1 Sodium 135.2 Potassium 4.28 Chloride 99.7 Carbon Dioxide 29.3 Anion Gap 10.48 BUN 17.1 Creatinine 2.00 H Estimated GFR (MDRD) 34.00 BUN/Creatinine Ratio 8.55 Glucose 120.8 H Lactic Acid Calcium 8.48 Total Bilirubin 1.04 AST 19.5 ALT 15.6 Alkaline Phosphatase 76.8 Total Creatine Kinase 51.6 L Troponin I 0.014 Total Protein 6.90 Albumin 3.69 Globulin 3.21 Albumin/Globulin Ratio 1.14 Amylase 47.2 Lipase 34.8 Procalcitonin Adenovirus (PCR) Not detected B. pertussis DNA (PCR) Not detected B.parapertussis DNA PCR Not detected C. pneumoniae DNA (PCR) Not detected Coronavirus OC43 (PCR) Not detected Coronavirus HKU1 (PCR) Not detected Coronavirus 229E (PCR) Not detected Coronavirus NL63 (PCR) Not detected Human Metapneumovir PCR Not detected Influenza Type A (PCR) Not detected Influenza B (RT-PCR) Not detected M. pneumoniae (PCR) Not detected Parainfluenza 1 (PCR) Not detected Parainfluenza 2 (PCR) Not detected Parainfluenza 3 (PCR) Not detected Parainfluenza 4 (PCR) Not detected RSV (PCR) Not detected Entero/Rhino (PCR) Not detected SARS-CoV-2 (PCR) Not detected 03/23/21 03/23/21 17:57 18:00 WBC RBC Hgb Hct MCV MCH MCHC RDW Coeff of Christiano Plt Count Immature Gran % (Auto) Neut % (Auto) Lymph % (Auto) Mccracken % (Auto) Eos % (Auto) Baso % (Auto) Neut # (Auto) Lymph # (Auto) Mccracken # (Auto) Eos # (Auto) Baso # (Auto) Immature Gran # (Auto) Sodium Potassium Chloride Carbon Dioxide Anion Gap BUN Creatinine Estimated GFR (MDRD) BUN/Creatinine Ratio Glucose Lactic Acid 1.74 Calcium Total Bilirubin AST ALT Alkaline Phosphatase Total Creatine Kinase Troponin I Total Protein Albumin Globulin Albumin/Globulin Ratio Amylase Lipase Procalcitonin 0.09 H Adenovirus (PCR) B. pertussis DNA (PCR) B.parapertussis DNA PCR C. pneumoniae DNA (PCR) Coronavirus OC43 (PCR) Coronavirus HKU1 (PCR) Coronavirus 229E (PCR) Coronavirus NL63 (PCR) Human Metapneumovir PCR Influenza Type A (PCR) Influenza B (RT-PCR) M. pneumoniae (PCR) Parainfluenza 1 (PCR) Parainfluenza 2 (PCR) Parainfluenza 3 (PCR) Parainfluenza 4 (PCR) RSV (PCR) Entero/Rhino (PCR) SARS-CoV-2 (PCR) Orders Category Date Time Status EKG-(ED ONLY) Stat CARDIO 03/23/21 17:20 Completed C-DIFF MONITORING (NURSING) BID CARE 03/23/21 18:28 Active ED IV/MEDIPORT/POWERPORT .ONCE EMERGENCY 03/23/21 17:18 Active AMYLASE Stat LAB 03/23/21 17:36 Completed BLOOD CULTURE (ED ONLY) Stat LAB 03/23/21 17:57 Received C. DIFFICILE Routine LAB 03/23/21 18:27 Uncollected CBC W/ AUTO DIFF Stat LAB 03/23/21 17:36 Completed COMPREHENSIVE METABOLIC PANEL Stat LAB 03/23/21 17:36 Completed CREATINE KINASE Stat LAB 03/23/21 17:36 Completed GASTROINTESTINAL PANEL (PCR) Stat LAB 03/23/21 Ordered LACTIC ACID Stat LAB 03/23/21 17:57 Completed LIPASE Stat LAB 03/23/21 17:36 Completed PROCALCITONIN Stat LAB 03/23/21 18:00 Completed RESPIRATORY PANEL 2.1 (PCR) Stat LAB 03/23/21 17:30 Completed TROPONIN I Stat LAB 03/23/21 17:36 Completed URINALYSIS C & S IF INDICATED Stat LAB 03/23/21 17:19 Uncollected 0.9 % Sodium Chloride [Saline Flush] MEDS 03/23/21 17:18 Active 1 syr IVF PRN PRN Levofloxacin/D5w [Levaquin 500 mg/100 ml D5w] MEDS 03/23/21 18:39 Active 500 mg in 100 ml IV ONCE Ringers Lactated Solution [Lactated Ringers] 1,000 ml MEDS 03/23/21 17:21 Discontinued IV BOLUS Sodium Chloride 0.9% [Sodium Chloride] 1,000 ml MEDS 03/23/21 18:[address] ABDOMEN/PELVIS WO CONTRAST Stat RADS 03/23/21 17:18 Completed Medications Generic Name Dose Route Start Last Admin Trade Name Freq PRN Reason Stop Dose Admin Sodium Chloride 1,000 mls @ 1,000 mls/hr 03/23/21 18:01 03/23/21 18:05 Sodium Chloride IV 03/23/21 19:00 1,000 mls/hr BOLUS STA Administration Levofloxacin/Dextrose 500 mg in 100 mls @ 100 mls/hr 03/23/21 18:39 03/23/21 18:51 Levaquin 500 Mg/100 Ml D5w IV 03/23/21 19:38 100 mls/hr ONCE ONE Administration Sodium Chloride 1 syr 03/23/21 17:18 0.9% Sodium Chloride 10 Ml Disp.Syrin IVF PRN PRN To flush IV Discontinued Medications Generic Name Dose Route Start Last Admin Trade Name Freq PRN Reason Stop Dose Admin Lactated Ringer's 1,000 mls @ 1,000 mls/hr 03/23/21 17:21 03/23/21 17:27 Lactated Ringers IV 03/23/21 18:20 1,000 mls/hr BOLUS STA Administration Vital Signs: Temp Pulse Resp BP Pulse Ox 03/23/21 17:07 98.9 F 92 H 18 82/67 L 93 L Discharge Plan Discharge Patient Disposition: ADMITTED INPATIENT Discharge Problem: Colitis Prescriptions: No Action trazodone 150 MG tablet 150 mg PO BEDTIME RF: 0 epinephrine [EpiPen 2-Sergio] 0.3 MG/0.3 ML auto-injector 0.3 mg IM ONCE PRN (Reason: allergic reaction) Qty: 1 RF: 0 clonidine HCl 0.1 mg tablet 0.1 mg PO PRN PRN (Reason: Hypertension) RF: 0 clopidogrel 75 mg tablet 75 mg PO DAILY RF: 0 metoprolol tartrate 50 mg tablet 100 mg PO DAILY RF: 0 hydrochlorothiazide 25 mg tablet 25 mg PO DAILY RF: 0 insulin aspart U-100 [Novolog Flexpen U-100 Insulin] 100 unit/mL (3 mL) insulin pen 10 unit SUBCUT TID RF: 0 Trulicity 4.5 mg/0.5 mL pen injector 4.5 mg SUBCUT WEEKLY RF: 0 albuterol sulfate [Ventolin HFA] 8 GM HFA aerosol inhaler 2 puff inhalation TID PRN (Reason: Asthma) RF: 0 hydrocodone-acetaminophen 1 TAB tablet 1 ea PO Q6HR PRN (Reason: Pain) RF: 0 alprazolam [Xanax] 1 MG tablet 1 mg PO QID RF: 0 quetiapine [Seroquel] 300 MG tablet 300 mg PO BEDTIME RF: 0 citalopram [Celexa] 40 MG tablet 40 mg PO DAILY RF: 0 gabapentin [Neurontin] 400 MG capsule 400 mg PO QID RF: 0 esomeprazole magnesium [Nexium] 20 MG capsule,delayed release(DR/EC) 20 mg PO DAILY RF: 0 budesonide-formoterol [Symbicort] 1 PUFF HFA aerosol inhaler 2 puff inhalation BID RF: 0 Lantus U-100 Insulin 1 UNIT solution 20 unit subcut BEDTIME Qty: 1 RF: 0 losartan 25 MG tablet 25 mg PO DAILY Qty: 10 RF: 0 atorvastatin [Lipitor] 40 MG tablet 40 mg PO BEDTIME Qty: 10 RF: 0 aspirin 81 MG tablet,delayed release (DR/EC) 81 mg PO DAILY Qty: 30 RF: 0 ED Provider: KAYLENE ZARCO Condition: Fair Physician Progress Note: []
[2021-03-23 18:30] LABS: ADENOVIRUS (PCR) NOT DETECTED (NOT DETECT)
[2021-03-23] MEDS ORDERED: LEVAQUIN 500 MG/100 ML D5W 500 MG/100 ML BAG IV ONE (18:39)
--- NOTE | 2021-03-23 19:55 | DI ---
EXAM: Single view chest COMPARISON: Chest X-ray from 07/07/2018. HISTORY: Abdominal pain FINDINGS: Lungs are clear with no lobar consolidation, failure, large effusion or significant atelec tasis. There is no free air under the diaphragm. Cardiac and mediastinal silhouettes show no acute ab normality. There has been prior sternotomy. No acute soft tissue or osseous abnormalities. There is hyperexpansion of the lung [place]. IMPRESSION: 1. No active disease. 2. Chronic obstructive pulmonary disease.
[2021-03-23] MEDS ORDERED: NEURONTIN PO SCH ×2 (21:00)
[2021-03-23] MEDS ORDERED: LANTUS SUBCUT SCH (21:00)
[2021-03-23] MEDS ORDERED: LIPITOR PO SCH (21:00)
[2021-03-23 22:20] VITALS: BMI 41.8
[2021-03-23] MEDS: DESYREL PO SCH (22:44)
[2021-03-23] MEDS: VENTOLIN HFA (PER PUFF-WITH SPACER) IH PRN (23:00)
[2021-03-23] MEDS: XANAX PO SCH (23:02)
[2021-03-23] MEDS: SYMBICORT 160-4.5 MCG INHALER IH SCH (23:03)
[2021-03-23] MEDS: SEROQUEL PO SCH (23:03)
[2021-03-24] MEDS: FLAGYL 500 MG/100 ML 500 MG/100 ML BAG IV SCH ×5 (02:11→23:25)
[2021-03-24 05:10] LABS: BASOPHILS # (AUTO) 0.1 K/uL (0-0.2); BASOPHILS % (AUTO) 0.7 % (0.0-3.0); EOSINOPHILS # (AUTO) 0.4 K/ul (0.0-0.7); EOSINOPHILS % (AUTO) 2.6 % (0.0-7.0); HEMATOCRIT 38.3 % (42.0-52.0); HEMOGLOBIN 12.1 g/dl (14.0-18.0); IMMATURE GRANULOCYTE # (AUTO) 0.1 (0.0-1.0); IMMATURE GRANULOCYTE % (AUTO) 0.5 % (0.0-5.0); LYMPHOCYTES # (AUTO) 1.7 K/uL (0.60-3.4); LYMPHOCYTES % (AUTO) 12.9 (10.0-50.0); MEAN CORPUSCULAR HEMOGLOBIN 29.6 pg (27.0-31.0); MEAN CORPUSCULAR HGB CONC 31.6 (31.8-35.4); MEAN CORPUSCULAR VOLUME 93.6 fl (80.0-94.0); NEUTROPHILS # (AUTO) 10.3 K/ul (2.0-6.9); NEUTROPHILS % (AUTO) 76.3 % (42.2-75.2); PLATELET COUNT 196 10^3/uL (140-440); RDW COEFFICIENT OF VARIATION 13.6 % (11.6-14.8); RED BLOOD COUNT 4.09 10^6/ul (4.70-6.10); WHITE BLOOD COUNT 13.48 K/ul (4.2-10.2)
[2021-03-24 05:20] LABS: ALANINE AMINOTRANSFERASE 12.4 U/L (0-50); ALBUMIN 3.09 g/dL (3.5-5.0); ALKALINE PHOSPHATASE 67.5 U/L (38-126); ASPARTATE AMINO TRANSFERASE 19.2 U/L (17-59); CALCIUM 7.85 mg/dL (8.4-10.2); CARBON DIOXIDE 29.2 mmol/L (22-30.0); CREATININE 1.49 mg/dL (0.60-1.10); GLUCOSE 107.5 mg/dL (74-106); POTASSIUM 4.07 mmol/L (3.5-5.1); TOTAL PROTEIN 6.01 g/dL (6.3-8.2)
[2021-03-24 07:07] LABS: BILIRUBIN,URINE Negative (NEGATIVE); CLARITY,URINE Clear (CLEAR); COLOR,URINE Yellow (YELLOW); GLUCOSE, URINE (UA) Negative (NEGATIVE); KETONES,URINE Negative (NEGATIVE); LEUKOCYTE ESTERASE ,URINE Negative (NEGATIVE); NITRITE,URINE Negative (NEGATIVE); PROTEIN,URINE Trace (NEGATIVE); URINE, BLOOD Negative (NEGATIVE); UROBILINOGEN,URINE 0.2 (0.2)
[2021-03-24 07:17] LABS: MUCUS,URINE TRACE (NOT PRESENT); SQUAMOUS EPITHELIAL CELL,UR 0-2 (0-5); URINE WBC, MICROSCOPIC 0-2 (0-2)
[2021-03-24] MEDS ORDERED: HYDROCHLOROTHIAZIDE PO SCH (09:00)
[2021-03-24] MEDS: NEURONTIN PO SCH ×4 (09:10→21:21)
[2021-03-24] MEDS: CELEXA PO SCH (09:10)
[2021-03-24] MEDS: ASPIRIN EC PO SCH (09:10)
[2021-03-24] MEDS: PLAVIX PO SCH (09:10)
[2021-03-24] MEDS: PROTONIX PO SCH (09:11)
[2021-03-24] MEDS: XANAX PO SCH ×4 (09:11→21:21)
[2021-03-24] MEDS: NORCO 7.5-325 PO PRN (09:11)
[2021-03-24] MEDS: SYMBICORT 160-4.5 MCG INHALER IH SCH ×2 (09:12→21:25)
--- NOTE | 2021-03-24 09:30 | HP ---
DISCUSSION: 60 year old gentleman with a history of hypertension as well as diabetes and obesity who presented to the emergency department for diarrhea and weakness. He thinks that he ate some "bad food". He has had non bloody diarrhea for several days with nausea. Denies any fever or chills. he was seen in the emergency department and found to be hypotensive. He was given 3 liters of IV fluids and fluid resuscitation with improvement in his blood pressure. CT scan of the abdomen did reveal evidence of colitis presumably infectious therefore the patient was admitted to the hospitalist service for IV fluids, monitoring of blood pressure and to get results of his GI PCR testing. PAST MEDICAL HISTORY: MEDICATIONS: Albuterol inhalers Xanax Aspirin Atorvastatin Symbicort Celexa Clonidine PRN Plavix Diclofenac topical Trulicity weekly Neurontin Hydrochlorothiazide [place] Novolog Lantus Losartan Metoprolol Nitroglycerin sublingual Seroquel Trazodone ALLERGIES: Guaifenesin Metformin PAST MEDICAL HISTORY: Asthma Bipolar disorder History of arthritis COPD Depression History of hypertension GERD Hyperlipidemia Neuropathy History of panic disorder Anxiety Schizophrenia History of tobacco use Urinary retention PAST SURGICAL HISTORY: Hernia repair SOCIAL HISTORY: History of tobacco use. Denies any alcohol or illicit drug use. FAMILY HISTORY: Stroke [place] REVIEW OF SYSTEMS: No headaches, visual changes, tinnitus, chest pain, shortness of breath, hemoptysis, blood in the stool, urinary symptoms or seizures. Global weakness, crampy abdominal pain, loose stools without diarrhea. PHYSICAL EXAMINATION: V/S: Blood pressure 102/73, pulse 80, respiratory rate 18, temperature 98.6. HEENT: Pupils are round. NECK: Supple. CHEST: Clear. CARDIOVASCULAR: Regular rate and rhythm. ABDOMEN: Soft, nontender. No rebound. No guarding. EXTREMITIES: Distal extremities without cyanosis or edema. ASSESSMENT: 1. Colitis 2. Hypotension. Blood pressure improved after fluid resuscitation 3. Diabetes Type II PLAN: 1. We are going cover with antibiotics 2. Await stool testing by PCR for enteropathogens as well as C. Diff 3. Initiate sliding scale insulin following finger stick blood sugars. 4. Hold his anti-hypertensive therapy for now 5. Monitor urine output 6. DVT prophylaxis with SCD MTDD
--- NOTE | 2021-03-24 09:40 | PCM.PROG ---
Date Seen by Provider: 03/24/21 Time Seen by Provider: 09:00 Subjective: Pt admitted for colitis. Still having upper and left sided abd pain. Also now complaining or left knee pain as he did fall 3 times yesterday before coming in for evaluation. Denies any fever. Still with some nausea but did eat tolerate some clears. Denmies any F/C. Objective: Vitals: T=97.2 F, P=87, R=14, TG=892/52, SPO2=92 HEENT: unremarkable Lungs:clear CVS: RRR Abdomen: soft, upper and left sided TTP Neurological: no acute finding Ext: Left knee pain on palpation and with ROM Lab/Tests/Diagnostic Imaging: W 13.5, Cr. 1.5 (1) Left knee pain: Status: Acute Code(s): M25.562 - Pain in left knee SNOMED Code(s): 2758862658 Plan: 1. Colitis: Continue antibiotics, antiemetics, pain medication and fluids. Repeat labs in AM. 2. Left knee pain: X-ray left knee
[2021-03-24] MEDS: VENTOLIN HFA (PER PUFF-WITH SPACER) IH PRN (10:10)
[2021-03-24] MEDS: LEVAQUIN 500 MG/100 ML D5W 500 MG/100 ML BAG IV SCH (10:44)
--- NOTE | 2021-03-24 11:28 | DI ---
EXAM: LEFT KNEE. HISTORY: Knee pain after fall FINDINGS: Left knee two-view. Compared to 08/03/2018. Redemonstration of a knee joint prosthesis w ithin the medial compartment. The prosthetic hardware appears to remain seated and is stable. No fr acture or dislocation is seen. There is no joint effusion. Vascular calcifications are present IMPRESSION: 1. No fracture or dislocation.
--- NOTE | 2021-03-24 11:30 | DI ---
EXAM: Two views of the left hand HISTORY: Left hip pain post fall. COMPARISON: Right hip x-rays 05/02/[address] abdomen pelvis 03/23/2021 FINDINGS: There is minimal narrowing in the left hip joint space. There is no lytic or blastic lesio n. Soft tissues are normal. There is no displaced fracture or dislocation. IMPRESSION: Minimal degenerative change of the left hip.
[2021-03-24] MEDS: HUMULIN R SUBCUT PRN ×2 (11:59→21:23)
[2021-03-24] MEDS ORDERED: NON-FORMULARY MEDICATION (Dulaglutide [Trulicity] 4.5 mg/0.5 mL pen injector) SUBCUT SCH (12:45)
[2021-03-24] MEDS: SODIUM CHLORIDE 1,000 ML IV SCH ×2 (12:56→23:25)
--- NOTE | 2021-03-24 13:21 | RS.PTINEVL ---
Subjective - Patient information Date of Evaluation: 03/24/21 Date of Arrival on Unit: 03/23/21 Admitted From:: Home Diagnosis: acute colitis, weakness, fall at home Usual Living Arrangement: Alone Home Environment: Apartment, Level/No stairs Medical History: Hypertension, COPD, Diabetes, Arthritis Medical History Comments:: neuropathy, GERD, panic disorder, anxiety, bipolar, schizophrenia Surgical History Comments:: hernia repair Medications: see chart Subjective Information/ Patient Comments:: pt states that he was not feeling well and passed out at home. pt states he has had L hip and knee pain for years since previous injury but is worse now since fall. 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 Current Level of Function: Partially Dependent Current Equipment Used at Home: CANE. SCOOTER Pain Assessement - Location L knee and L hip Description: Aching Intensity: 7 Pain Behavior: Facial Grimacing Pain Aggravating Factors: Changing Position, Standing Pain Alleviating Factors: Medication Interventions - Objective Patient Orientation: Person, Place, Time, Situation Current Interventions: IV's, Oxygen, Telemetry Observation: pt with tenderness to palpation L knee with min edema noted, unable to do special tests due to pain. Range of Motion - ROM Right Upper Extremity AROM: Slight limitation (slight limitation with shld flex) Left Upper Extremity AROM: Slight limitation (slight limitation with shld flex) Right Lower Extremity AROM: WFL's Left Lower Extremity AROM: WFL's Muscle Strength - Muscle Strength Right Upper Extremity Strength: Mild Weakness (grossly 4/5) Left Upper Extremity Strength: Mild Weakness (grossly 4/5) Right Lower Extremity Strength: Mild Weakness (hip flex 4/5, knee flex/ext 4+/5, ankle DF/PF 4+/5) Left Lower Extremity Strength: Mild Weakness (hip flex 4-/5, knee flex/ext 4-/5, ankle DF/PF 4/5) Sensation - Sensation Right Upper Extremity Sensation: Intact/Normal Left Upper Extremity Sensation: Intact/Normal Right Lower Extremity Sensation: Intact/Normal Left Lower Extremity Sensation: Intact/Normal Palpation Palpation Findings: Tenderness (L knee) Balance - Sitting Balance and Reactions Static Sitting Balance: Normal Dynamic Sitting Balance: Normal - Standing Balance and Reactions Static Standing Balance: Good Dynamic Standing Balance: Fair Functional Mobility - Bed Mobility Rolling R/L: Independent Supine to Sit: Independent Sit to Supine: Independent - Transfers Sit to Stand: CGA Stand to Sit: CGA - Safety Awareness Safety Awareness: Poor SANA INDEX SCORE: n/a Ambulation - Ambulation Ambulation Comments: pt did not amb due to pt feeling weak and leaning side/side Treatment time - Time with patient Length of Evaluation: 19 Total treatment time: 31 Patient Education - Education Patient Education: Activity Modification, Education of Plan of Care Teaching Recipient: Family Teaching Methods: Discussion Comments: discussion regarding POC and safety with transfers and gait Assessment - Assessment Problem List:: Decreased level of function, Requires training/education, Decreased safety/Risk of falls, Weakness, Pain limits previous level of function Rehab Potential: Fair Further Therapy Indicated?: Yes Candidate for Swing Bed for Therapy Services?: Feel pt may not be a candidate for swing bed due to higher level of function Evaluation Complexity: HISTORY: Medium, EXAM OF BODY SYSTEMS: Medium, CLINICAL PRESENTATION: Medium, CLINICAL DECISION MAKING: Medium Patient's Goal(s): walk better decrease pain Short Term Goals GOAL #1: pt demonstrate sit to/from stand SBA Goal to be met by: 03/26/21 GOAL #2: pt amb with rwx 50ft with min x 1 no LOB Goal to be met by: 03/26/21 GOAL #3: Improve strength BLE 4 to 4+/5 Goal to be met by: 03/26/21 GOAL #4: pt demonstrate fair dyn stand balance Goal to be met by: 03/26/21 Supervisor Picking Crew Goals GOAL #1: pt transfers sit to/from stand independently Goal to be met by: 03/28/21 GOAL #2: pt rate pain < 6/10 Goal to be met by: 03/28/21 GOAL #3: pt amb functional household distances without LOB independently Goal to be met by: 03/28/21 Plan Plan of Care: Therapeutic EX, Therapeutic Activity Other:: gait training Frequency of Treatment: 1-2 X day, as tolerated Duration of Treatment: 5 days Anticipated Discharge Destination: Home Treatment Diagnosis (ICD 10 Codes): frequent falls R 29.6. impaired balance R 26.81. difficulty walking Has the Physician been added for Co-signature?: Yes
--- NOTE | 2021-03-24 14:13 | RS.OTINEVL ---
Subjective - Patient information Date of Evaluation: 03/24/21 Date of Arrival on Unit: 03/23/21 Admitted From:: Home Diagnosis: Weakness, Left knee pain PRECAUTIONS: Left hip pain, Usual Living Arrangement: Alone Living Arrangement Comments: apartment on first floor. Home Environment: Apartment, Level/No stairs Medical History: Hypertension, COPD, Diabetes, Arthritis Medical History Comments:: neuropathy, GERD, panic disorder, anxiety, bipolar, schizophrenia Surgical History: Shoulder Replacement Surgical History Comments:: hernia repair Medications: see chart Subjective Information/ Patient Comments:: My pain is an 8 right now in this hip. 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 Current Level of Function: Partially Dependent Current Equipment Used at Home: CANE. SCOOTER Pain Assessment - Pain Pain Score: 8 Side: left Pain Location Body Site: Hip Pain Aggravating Factors: Changing Position, Exercise/Activity, Standing Pain Alleviating Factors: Medication, Position Change Interventions - Objective Patient Orientation: Person, Place, Situation Current Interventions: IV's Observation: Pt is independent with bed mobility. Pt does have a difficult time with getting to the EOB, but he can complete. Pt required 2 attempts to stand EOB with RW. Pt has functional AROM of BUE. Pt reports he hurts alot in his shoulders and has to rub them down before he goes to bed. Interventions - ROM Right Upper Extremity AROM: Slight limitation Left Upper Extremity AROM: Slight limitation - Strength Right Upper Extremity Strength: Mild Weakness Left Upper Extremity Strength: Mild Weakness - Sensation Right Upper Extremity Sensation: Intact/Normal Left Upper Extremity Sensation: Intact/Normal Balance - Sitting Balance Static Sitting Balance: Fair Dynamic Sitting Balance: Fair - Standing Balance Static Standing Balance: Poor Dynamic Standing Balance: Poor ADL Skills - Self Feeding Self Feeding: Independent - Grooming Grooming: [facility] Grooming Set-up: Standing - Dressing Dressing UE: Independent Dressing LE: Independent - Toilet Management Toilet Hygiene: Independent Toilet Clothing Management: Independent Functional Mobility - Bed Mobility Rolling R/L: Independent Scooting: Independent Supine to Sit: Independent Sit to Supine: Independent - Transfers Sit to Stand: CGA Stand to Sit: CGA - Ambulation Weight Bearing Status: FWB Assistance needed with Ambulation: 1 person assist - Safety Awareness Safety Awareness: Fair SANA INDEX SCORE: . Additional Treatment Performed - Time with patient Length of Evaluation: 20 Total treatment time: 24 Activities Do you enjoy playing games?: Yes Would you be interested in leaving your room for activities?: Yes Would you enjoy group activities?: Yes Patient Interests:: Watching Television, Visiting/Socializing, Computer/Internet Patient Education Patient Education: Education of Plan of Care Teaching Recipient: Patient Teaching Methods: Discussion Assessment Problem List:: Decreased level of function, Requires training/education, Decreased safety/Risk of falls, Weakness Rehab Potential: Good Further Therapy Indicated?: Yes Evaluation Complexity: HISTORY: Medium, EXAM OF BODY SYSTEMS: Medium, CLINICAL DECISION MAKING: Medium Patient's Goal(s): To get stronger where he doesn't fall at home. Short Term Goals - Goals GOAL 1: Pt pain in Left hip to decrease to 2-4/10. Goal to be met by: 03/27/21 GOAL 2: Pt to increase BUE strength to 4+/5. Goal to be met by: 03/27/21 GOAL 3: Pt to increase activity tolerance to 10 minutes of standing w/ activity. 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 Goal to be met by: 03/31/21 GOAL 2: Pt to increase BUE strength to 4+/5. Goal to be met by: 03/31/21 GOAL 3: Pt to be Independent with home exercise program. Goal to be met by: 03/31/21 Plan Plan of Care: Therapeutic EX, Therapeutic Activity, Self-Care/Home Management Modalities: Cold Pack/Cryotherapy Frequency of Treatment: 1-2 X day, as tolerated Duration of Treatment: 2 Weeks Anticipated Discharge Destination: Home Treatment Diagnosis (ICD 10 Codes): R53.1 Weakness, M25.61 Shoulder stiffness. Has the Physician been added for Co-signature?: Yes
[2021-03-24] MEDS: LIPITOR PO SCH (21:21)
[2021-03-24] MEDS: DESYREL PO SCH (21:21)
[2021-03-24] MEDS: SEROQUEL PO SCH (21:22)
[2021-03-24] MEDS: LANTUS SUBCUT SCH (21:22)
[2021-03-25] MEDS: FLAGYL 500 MG/100 ML 500 MG/100 ML BAG IV SCH ×4 (05:33→23:39)
[2021-03-25 05:58] LABS: BASOPHILS # (AUTO) 0.1 K/uL (0-0.2); BASOPHILS % (AUTO) 0.6 % (0.0-3.0); EOSINOPHILS # (AUTO) 0.4 K/ul (0.0-0.7); EOSINOPHILS % (AUTO) 2.8 % (0.0-7.0); HEMATOCRIT 38.3 % (42.0-52.0); HEMOGLOBIN 12.2 g/dl (14.0-18.0); IMMATURE GRANULOCYTE # (AUTO) 0.1 (0.0-1.0); IMMATURE GRANULOCYTE % (AUTO) 0.5 % (0.0-5.0); LYMPHOCYTES # (AUTO) 1.3 K/uL (0.60-3.4); LYMPHOCYTES % (AUTO) 10.7 (10.0-50.0); MEAN CORPUSCULAR HGB CONC 31.9 (31.8-35.4); MEAN CORPUSCULAR VOLUME 94.1 fl (80.0-94.0); MONOCYTES # (AUTO) 0.7 K/uL (0.4-2.0); MONOCYTES % (AUTO) 5.3 (0-10); NEUTROPHILS % (AUTO) 80.1 % (42.2-75.2); PLATELET COUNT 196 10^3/uL (140-440); RDW COEFFICIENT OF VARIATION 13.6 % (11.6-14.8); RED BLOOD COUNT 4.07 10^6/ul (4.70-6.10); WHITE BLOOD COUNT 12.45 K/ul (4.2-10.2)
[2021-03-25 06:10] LABS: ALANINE AMINOTRANSFERASE 11.4 U/L (0-50); ALBUMIN 3.05 g/dL (3.5-5.0); ALKALINE PHOSPHATASE 68.2 U/L (38-126); ASPARTATE AMINO TRANSFERASE 19.1 U/L (17-59); BILIRUBIN,TOTAL 0.62 mg/dL (0.2-1.3); BLOOD UREA NITROGEN 11.6 mg/dL (9-20); CALCIUM 8.2 mg/dL (8.4-10.2); CARBON DIOXIDE 29.1 mmol/L (22-30.0); CREATININE 1.12 mg/dL (0.60-1.10); GLUCOSE 134.3 mg/dL (74-106); POTASSIUM 4.21 mmol/L (3.5-5.1); SODIUM 140.6 mmol/L (134.5-145); TOTAL PROTEIN 6.05 g/dL (6.3-8.2)
[2021-03-25] MEDS: CELEXA PO SCH (09:32)
[2021-03-25] MEDS: XANAX PO SCH ×4 (09:32→20:24)
[2021-03-25] MEDS: LEVAQUIN 500 MG/100 ML D5W 500 MG/100 ML BAG IV SCH (09:32)
[2021-03-25] MEDS: ASPIRIN EC PO SCH (09:32)
[2021-03-25] MEDS: PROTONIX PO SCH (09:32)
[2021-03-25] MEDS: PLAVIX PO SCH (09:32)
[2021-03-25] MEDS: SYMBICORT 160-4.5 MCG INHALER IH SCH ×2 (09:33→20:28)
[2021-03-25] MEDS: NEURONTIN PO SCH ×4 (09:33→20:25)
[2021-03-25] MEDS: VENTOLIN HFA (PER PUFF-WITH SPACER) IH PRN (09:47)
[2021-03-25] MEDS: NORCO 7.5-325 PO PRN (09:55)
--- NOTE | 2021-03-25 10:01 | PCM.PROG ---
care assumed from Dr Montaño at 7am pt improving, alert and oriented x3, nad, still generalized weakness, uses a scooter at home as he has done for months, obese pt awaiting PT evaluation of deconditioning to determine discharge placement, pt continues 2 day treatment of colitis w/ Flagyl and Levaquin, evaluation of diarrhea still awaiting stool specimen heent: buccal moist, conjunctiva clear lungs: clear Heart: RRR abdomen: protuberant, soft, no rebound extremities: warm and dry psych: pt nad, conversant care to Dr Gerardo at 7pm
[2021-03-25] MEDS: SODIUM CHLORIDE 1,000 ML IV SCH ×2 (10:37→12:10)
[2021-03-25] MEDS: LIPITOR PO SCH (20:25)
[2021-03-25] MEDS: SEROQUEL PO SCH (20:25)
[2021-03-25] MEDS: DESYREL PO SCH (20:25)
[2021-03-25] MEDS: LANTUS SUBCUT SCH (20:26)
[2021-03-25] MEDS: HUMULIN R SUBCUT PRN (20:39)
[2021-03-26] MEDS: SODIUM CHLORIDE 1,000 ML IV SCH ×2 (03:12→17:03)
[2021-03-26] MEDS: FLAGYL 500 MG/100 ML 500 MG/100 ML BAG IV SCH ×4 (05:30→23:28)
[2021-03-26] MEDS: XANAX PO SCH ×4 (09:09→20:59)
[2021-03-26] MEDS: PLAVIX PO SCH (09:09)
[2021-03-26] MEDS: PROTONIX PO SCH (09:09)
[2021-03-26] MEDS: CELEXA PO SCH (09:09)
[2021-03-26] MEDS: SYMBICORT 160-4.5 MCG INHALER IH SCH ×2 (09:10→21:21)
[2021-03-26] MEDS: NEURONTIN PO SCH ×4 (09:10→21:01)
[2021-03-26] MEDS: LEVAQUIN 500 MG/100 ML D5W 500 MG/100 ML BAG IV SCH (09:10)
[2021-03-26] MEDS: ASPIRIN EC PO SCH (09:10)
[2021-03-26] MEDS: VENTOLIN HFA (PER PUFF-WITH SPACER) IH PRN ×2 (09:35→20:05)
--- NOTE | 2021-03-26 10:01 | PCM.PROG ---
Date Seen by Provider: 03/26/21 Time Seen by Provider: 09:59 Subjective: Pt still with weakness and abdominal pain. Undergoing PT and will need to continue. Now complaining of abdominal cramping. Objective: Vitals: T=97.6 F, P=90, R=18, NJ=045/64, SPO2=92 Lungs: clear CVS: RRR Abdomen: soft with mild dissuse TTP Neurological: general weakness without focal weakness (1) Left knee pain: Status: Inactive Code(s): M25.562 - Pain in left knee SNOMED Code(s): 4788117682 Plan: 1. Colitis: Will continue antibiotics, fluids and anti emetics. Will add bentyl as needed to help with cramping. Continue to advance diet. Recheck labs in AM. 2. Weakness: Continue physical therapy.
[2021-03-26] MEDS: BENTYL PO PRN ×2 (10:29→17:13)
[2021-03-26] MEDS: HUMULIN R SUBCUT PRN ×2 (11:57→21:01)
[2021-03-26] MEDS: NORCO 7.5-325 PO PRN ×2 (12:01→21:18)
[2021-03-26] MEDS ORDERED: REGLAN IVP ONE (12:49)
[2021-03-26] MEDS ORDERED: BENADRYL IVP ONE (12:51)
[2021-03-26] MEDS ORDERED: HYDROCORTISONE 1% CREAM TP PRN (15:36)
[2021-03-26] MEDS ORDERED: TORADOL IVP ONE (15:38)
[2021-03-26] MEDS: DESYREL PO SCH (20:59)
[2021-03-26] MEDS: SEROQUEL PO SCH (20:59)
[2021-03-26] MEDS: LIPITOR PO SCH (21:00)
[2021-03-26] MEDS: LANTUS SUBCUT SCH (21:08)
[2021-03-27] MEDS: SODIUM CHLORIDE 1,000 ML IV SCH (04:23)
[2021-03-27] MEDS: VENTOLIN HFA (PER PUFF-WITH SPACER) IH PRN ×2 (05:05→12:50)
[2021-03-27] MEDS: FLAGYL 500 MG/100 ML 500 MG/100 ML BAG IV SCH ×2 (05:08→11:43)
[2021-03-27 07:24] LABS: POTASSIUM 4.19 mmol/L (3.5-5.1); SODIUM 140.3 mmol/L (134.5-145)
[2021-03-27 07:25] LABS: ALANINE AMINOTRANSFERASE 14.7 U/L (0-50); ALBUMIN 3.25 g/dL (3.5-5.0); ASPARTATE AMINO TRANSFERASE 26.7 U/L (17-59); BILIRUBIN,TOTAL 0.46 mg/dL (0.2-1.3); BLOOD UREA NITROGEN 11.2 mg/dL (9-20); CALCIUM 8.5 mg/dL (8.4-10.2); CARBON DIOXIDE 27.3 mmol/L (22-30.0); CHLORIDE 106.5 mmol/L (98-107); CREATININE 1.05 mg/dL (0.60-1.10); GLUCOSE 109.7 mg/dL (74-106); TOTAL PROTEIN 6.36 g/dL (6.3-8.2)
[2021-03-27] MEDS: LEVAQUIN 500 MG/100 ML D5W 500 MG/100 ML BAG IV SCH (07:59)
[2021-03-27] MEDS: ASPIRIN EC PO SCH (08:00)
[2021-03-27] MEDS: BENTYL PO PRN (08:00)
[2021-03-27] MEDS: PLAVIX PO SCH (08:00)
[2021-03-27] MEDS: NEURONTIN PO SCH ×4 (08:00→20:12)
[2021-03-27] MEDS: CELEXA PO SCH (08:00)
[2021-03-27] MEDS: SYMBICORT 160-4.5 MCG INHALER IH SCH ×2 (08:00→20:16)
[2021-03-27] MEDS: PROTONIX PO SCH (08:00)
[2021-03-27] MEDS: XANAX PO SCH ×4 (08:00→20:11)
[2021-03-27 09:58] LABS: BASOPHILS # (AUTO) 0.1 K/uL (0-0.2); BASOPHILS % (AUTO) 0.9 % (0.0-3.0); EOSINOPHILS # (AUTO) 0.6 K/ul (0.0-0.7); EOSINOPHILS % (AUTO) 6.2 % (0.0-7.0); HEMATOCRIT 41.5 % (42.0-52.0); HEMOGLOBIN 12.9 g/dl (14.0-18.0); IMMATURE GRANULOCYTE % (AUTO) 0.4 % (0.0-5.0); LYMPHOCYTES # (AUTO) 1.6 K/uL (0.60-3.4); LYMPHOCYTES % (AUTO) 17.9 (10.0-50.0); MEAN CORPUSCULAR HEMOGLOBIN 29.5 pg (27.0-31.0); MEAN CORPUSCULAR HGB CONC 31.1 (31.8-35.4); MEAN CORPUSCULAR VOLUME 94.7 fl (80.0-94.0); MONOCYTES # (AUTO) 0.5 K/uL (0.4-2.0); MONOCYTES % (AUTO) 5.8 (0-10); NEUTROPHILS # (AUTO) 6.2 K/ul (2.0-6.9); NEUTROPHILS % (AUTO) 68.8 % (42.2-75.2); PLATELET COUNT 238 10^3/uL (140-440); RDW COEFFICIENT OF VARIATION 13.2 % (11.6-14.8); RED BLOOD COUNT 4.38 10^6/ul (4.70-6.10); WHITE BLOOD COUNT 9.03 K/ul (4.2-10.2)
[2021-03-27] MEDS: HUMULIN R SUBCUT PRN ×2 (11:43→21:09)
[2021-03-27] MEDS ORDERED: DULCOLAX PO ONE (12:03)
[2021-03-27] MEDS: NORCO 7.5-325 PO PRN ×2 (12:27→20:11)
[2021-03-27] MEDS: LIPITOR PO SCH (20:10)
[2021-03-27] MEDS: SEROQUEL PO SCH (20:12)
[2021-03-27] MEDS: DESYREL PO SCH (20:12)
--- NOTE | 2021-03-27 20:16 | PCM.PROG ---
Date Seen by Provider: 03/27/21 Time Seen by Provider: 19:00 Subjective: States feeling better ,Still no BM but state not surprised due to amount of diarrhea he experienced before admission . States tolerating current and oral liquids well Objective: Vitals: T=98.0 F, P=85, R=14, LE=082/69, SPO2=94 HEENT: Clear Neck: supple Lungs: CTA-AF CVS: HRRR Abdomen: Soft -non distended. BS normal; localized tenderness lower abdomen- not guarding Extremities: pretibial edema Neurological: Grossly normal Skin: WNL Lab/Tests/Diagnostic Imaging: See Chart (1) Left knee pain: Status: Inactive Code(s): M25.562 - Pain in left knee SNOMED Code(s): 8039657370 (2) Colitis: Status: Acute Code(s): K52.9 - Noninfective gastroenteritis and colitis, unspecified SNOMED Code(s): 09110282 Plan: Stop IV fluids and IV antibiotics Re check xray and lab in am
[2021-03-27] MEDS: LANTUS SUBCUT SCH (21:08)
[2021-03-27] MEDS: FLAGYL PO SCH (21:15)
[2021-03-28 05:41] VITALS: BP 141/94; TEMP 98.1
[2021-03-28] MEDS ORDERED: LEVAQUIN PO SCH (06:30)
--- NOTE | 2021-03-28 07:00 | DI ---
EXAM: Two views of the abdomen HISTORY: Unable of dominant COMPARISON: None FINDINGS: Cardiac tree last overlies the left heart margin. There are no dilated loops of small bow el. Multifocal gaseous distension and dilation of the colon. No evidence of intra-abdominal free ai r. Mild colonic fecal retention.There are no abnormal calcifications. There are no acute abnormalit ies of the bones. IMPRESSION: 1. No small bowel dilation. Nonspecific gaseous distension in dilation of large bowel. Differentia l considerations would include colonic ileus, colitis or mechanical obstruction. Recommend correlati on with CT. 2. Mild colonic fecal retention.
[2021-03-28] MEDS: XANAX PO SCH (08:38)
[2021-03-28] MEDS: NEURONTIN PO SCH (08:39)
[2021-03-28] MEDS: CELEXA PO SCH (08:39)
[2021-03-28] MEDS: FLAGYL PO SCH (08:39)
[2021-03-28] MEDS: PLAVIX PO SCH (08:39)
[2021-03-28] MEDS: PROTONIX PO SCH (08:39)
[2021-03-28] MEDS: ASPIRIN EC PO SCH (08:39)
[2021-03-28] MEDS: SYMBICORT 160-4.5 MCG INHALER IH SCH (08:40)
[2021-03-28] MEDS: BENTYL PO PRN (08:44)
[2021-03-28] MEDS: NORCO 7.5-325 PO PRN (09:04)
--- NOTE | 2021-03-28 09:08 | CT ---
EXAM: CT ABDOMEN AND PELVIS HISTORY: Follow-up, acute colitis TECHNIQUE: CT abdomen and pelvis without intravenous contrast. Images were reconstructed using 5 mm section thickness. Reformations were prepared. COMPARISON: 03/23/2021 FINDINGS: Diagnostic limitations exist without including intravenous contrast enhanced images. No focal hepati c or splenic lesions identified. Gallbladder, pancreas and adrenal glands are within normal limits. Redemonstration of a few bilateral renal calculi largest measuring about 4 mm on the right. There i s no hydronephrosis or evidence of ureteral obstruction. Moderate bilateral perinephric fat strandin g is stable and nonspecific. There is moderate atherosclerotic disease. Incidental note of a left c ommon iliac vein stent. Stomach appears normal. The appendix has no evidence of inflammation. Previously seen inflammation affecting the splenic flexure of the colon has resolved. There is mild gaseous distension of the tra nsverse colon which may represent a degree of ileus. There is slight excess fecal retention in the r ight colon. No bowel obstruction. Urinary bladder and prostate are within normal limits. There is no ascites.. Small bilateral fatty inguinal hernias with necks of about a centimeter coronal dimensio n. The bones demonstrate severe degenerative disc disease of the lumbar spine. Sacroiliac joint art hropathy is moderate. No pneumoperitoneum. Lung bases are free of acute infiltrate. IMPRESSION: 1. Previously seen inflammation affecting the splenic flexure of the colon has resolved. There is m ild gaseous distension of the transverse colon which may represent a degree of ileus. No bowel obstr uction. 2. Bilateral nephrolithiasis without hydronephrosis 3. Atherosclerotic disease. Left common iliac vein stent. - All CT scans are performed using dose optimization techniques as appropriate to the performed exam an d include at least one of the following: Automated exposure control, adjustment of the mA and/or kV according t o size, and the use of iterative reconstruction technique.
[2021-03-28] MEDS ORDERED: ALBUTEROL 0.083% NEB NEB ONE (09:24)
--- NOTE | 2021-03-28 09:37 | PCM.DC ---
Final Diagnosis: Colitis - resolved. (1) Colitis: Status: Acute Code(s): K52.9 - Noninfective gastroenteritis and colitis, unspecified SNOMED Code(s): 96779566 Reason for Hospitalization: Abdominal pain consistent with colitis. Prognosis/Condition at Discharge: Good. Stable. Medications at Discharge: Ambulatory Orders Medication Instructions Recorded trazodone 150 mg tablet 150 mg PO BEDTIME 10/31/13 albuterol sulfate 90 mcg/actuation 2 puff INHALATION TID PRN 05/22/16 aerosol inhaler (Ventolin HFA) epinephrine 0.3 mg/0.3 mL 0.3 mg (0.3 mL) IM ONCE PRN #1 ml 02/14/17 injection, auto-injector (EpiPen 2-Sergio) alprazolam 1 mg tablet (Xanax) 1 mg PO QID 07/07/18 budesonide-formoterol HFA 160 2 puff INHALATION BID 07/07/18 mcg-4.5 mcg/actuation aerosol inhaler (Symbicort) citalopram 40 mg tablet (Celexa) 40 mg PO DAILY 07/07/18 esomeprazole magnesium 20 mg 40 mg PO DAILY 07/07/18 capsule,delayed release (Nexium) gabapentin 400 mg capsule 600 mg PO TID 07/07/18 (Neurontin) hydrocodone 7.5 mg-acetaminophen 1 ea PO Q6HR 07/07/18 325 mg tablet quetiapine 300 mg tablet (Seroquel) 300 mg PO BEDTIME 07/07/18 aspirin 81 mg tablet,delayed 81 mg PO DAILY #30 tablet. 07/08/18 release insulin glargine 100 unit/mL 20 unit (0.2 mL) SUBCUT BEDTIME #1 07/08/18 subcutaneous solution (Lantus ml U-100 Insulin) losartan 25 mg tablet 25 mg PO DAILY #10 tablet 07/08/18 clonidine HCl 0.1 mg tablet 0.1 mg PO PRN PRN 03/23/21 clopidogrel 75 mg tablet 75 mg PO DAILY 03/23/21 dulaglutide 4.5 mg/0.5 mL 4.5 mg SUBCUT WEEKLY 03/23/21 subcutaneous pen injector (Trulicity) hydrochlorothiazide 25 mg tablet 25 mg PO DAILY 03/23/21 insulin aspart U-100 100 unit/mL 10 unit SUBCUT TID 03/23/21 (3 mL) subcutaneous pen (Novolog Flexpen U-100 Insulin aspart) metoprolol tartrate 50 mg tablet 100 mg PO DAILY 03/23/21 atorvastatin 80 mg tablet 80 mg PO DAILY 03/24/21 diclofenac sodium 1 % topical gel 1 ea TOPICAL Q4H PRN 03/24/21 insulin glargine 100 unit/mL (3 70 unit SUBCUT BEDTIME 03/24/21 mL) subcutaneous pen (Lantus Solostar U-100 Insulin) naloxone 4 mg/actuation nasal 1 spray INTRANASAL ONCE 03/24/21 spray (Narcan) nitroglycerin 0.4 mg sublingual 0.4 mg SUBLINGUAL ONCE 03/24/21 tablet pen needle, diabetic 31 gauge x 03/24/21 3/16" (BD Ultra-Fine Mini Pen Needle) ciprofloxacin HCl 500 mg tablet 500 mg PO BID #14 tab 03/28/21 (Cipro) dicyclomine 20 mg tablet 20 mg PO QID #20 tab 03/28/21 metronidazole 500 mg tablet 500 mg PO BID #14 tab 03/28/21 simethicone 180 mg capsule 180 mg PO BID #14 cap 03/28/21 Lab/Diagnostics: Laboratory Tests 03/23/21 03/23/21 03/23/21 17:30 17:36 17:36 WBC 15.31 H RBC 4.76 Hgb 14.1 Hct 43.5 MCV 91.4 MCH 29.6 MCHC 32.4 RDW Coeff of Christian[place] 13.6 Plt Count 231 Immature Gran % (Auto) 0.3 Neut % (Auto) 76.4 H Lymph % (Auto) 13.6 [place] % (Auto) 7.1 Eos % (Auto) 1.9 Baso % (Auto) 0.7 Neut # (Auto) 11.7 H Lymph # (Auto) 2.1 [place] # (Auto) 1.1 Eos # (Auto) 0.3 Baso # (Auto) 0.1 Immature Gran # (Auto) 0.1 Sodium 135.2 Potassium 4.28 Chloride 99.7 Carbon Dioxide 29.3 Anion Gap 10.48 BUN 17.1 Creatinine 2.00 H Estimated GFR (MDRD) 34.00 BUN/Creatinine Ratio 8.55 Glucose 120.8 H Lactic Acid Calcium 8.48 Total Bilirubin 1.04 AST 19.5 ALT 15.6 Alkaline Phosphatase 76.8 Total Creatine Kinase 51.6 L Troponin I 0.014 Total Protein 6.90 Albumin 3.69 Globulin 3.21 Albumin/Globulin Ratio 1.14 Amylase 47.2 Lipase 34.8 Procalcitonin Urine Color Urine Clarity Urine pH Ur Specific [place] Urine Protein Urine Glucose (UA) Urine Ketones Urine Blood Urine Nitrite Urine Bilirubin Urine Urobilinogen Ur Leukocyte Esterase Urine Microscopic WBC Ur Squamous Epith Cells Urine Mucus Adenovirus (PCR) Not detected B. pertussis DNA (PCR) Not detected B.parapertussis DNA PCR Not detected C. pneumoniae DNA (PCR) Not detected Coronavirus OC43 (PCR) Not detected Coronavirus HKU1 (PCR) Not detected Coronavirus 229E (PCR) Not detected Coronavirus NL63 (PCR) Not detected Human Metapneumovir PCR Not detected Influenza Type A (PCR) Not detected Influenza B (RT-PCR) Not detected M. pneumoniae (PCR) Not detected Parainfluenza 1 (PCR) Not detected Parainfluenza 2 (PCR) Not detected Parainfluenza 3 (PCR) Not detected Parainfluenza 4 (PCR) Not detected RSV (PCR) Not detected Entero/Rhino (PCR) Not detected SARS-CoV-2 (PCR) Not detected 03/23/21 03/23/21 03/24/21 17:57 18:00 04:48 WBC 13.48 H RBC 4.09 L Hgb 12.1 L Hct 38.3 L MCV 93.6 MCH 29.6 MCHC 31.6 L RDW Coeff of Christian[place] 13.6 Plt Count 196 Immature Gran % (Auto) 0.5 Neut % (Auto) 76.3 H Lymph % (Auto) 12.9 [place] % (Auto) 7.0 Eos % (Auto) 2.6 Baso % (Auto) 0.7 Neut # (Auto) 10.3 H Lymph # (Auto) 1.7 [place] # (Auto) 1.0 Eos # (Auto) 0.4 Baso # (Auto) 0.1 Immature Gran # (Auto) 0.1 Sodium Potassium Chloride Carbon Dioxide Anion Gap BUN Creatinine Estimated GFR (MDRD) BUN/Creatinine Ratio Glucose Lactic Acid 1.74 Calcium Total Bilirubin AST ALT Alkaline Phosphatase Total Creatine Kinase Troponin I Total Protein Albumin Globulin Albumin/Globulin Ratio Amylase Lipase Procalcitonin 0.09 H Urine Color Urine Clarity Urine pH Ur Specific [place] Urine Protein Urine Glucose (UA) Urine Ketones Urine Blood Urine Nitrite Urine Bilirubin Urine Urobilinogen Ur Leukocyte Esterase Urine Microscopic WBC Ur Squamous Epith Cells Urine Mucus Adenovirus (PCR) B. pertussis DNA (PCR) B.parapertussis DNA PCR C. pneumoniae DNA (PCR) Coronavirus OC43 (PCR) Coronavirus HKU1 (PCR) Coronavirus 229E (PCR) Coronavirus NL63 (PCR) Human Metapneumovir PCR Influenza Type A (PCR) Influenza B (RT-PCR) M. pneumoniae (PCR) Parainfluenza 1 (PCR) Parainfluenza 2 (PCR) Parainfluenza 3 (PCR) Parainfluenza 4 (PCR) RSV (PCR) Entero/Rhino (PCR) SARS-CoV-2 (PCR) 03/24/21 03/24/21 03/25/21 04:48 06:50 05:50 WBC 12.45 H RBC 4.07 L Hgb 12.2 L Hct 38.3 L MCV 94.1 H MCH 30.0 MCHC 31.9 RDW Coeff of Christian[place] 13.6 Plt Count 196 Immature Gran % (Auto) 0.5 Neut % (Auto) 80.1 H Lymph % (Auto) 10.7 [place] % (Auto) 5.3 Eos % (Auto) 2.8 Baso % (Auto) 0.6 Neut # (Auto) 10.0 H Lymph # (Auto) 1.3 [place] # (Auto) 0.7 Eos # (Auto) 0.4 Baso # (Auto) 0.1 Immature Gran # (Auto) 0.1 Sodium 136.0 Potassium 4.07 Chloride 104.0 Carbon Dioxide 29.2 Anion Gap 6.87 BUN 16.0 Creatinine 1.49 H D Estimated GFR (MDRD) 48.00 BUN/Creatinine Ratio 10.73 Glucose 107.5 H Lactic Acid Calcium 7.85 L Total Bilirubin 1.00 AST 19.2 ALT 12.4 Alkaline Phosphatase 67.5 Total Creatine Kinase Troponin I Total Protein 6.01 L Albumin 3.09 L Globulin 2.92 Albumin/Globulin Ratio 1.05 Amylase Lipase Procalcitonin Urine Color Yellow Urine Clarity Clear Urine pH 6.0 Ur Specific [place] 1.010 Urine Protein Trace H Urine Glucose (UA) Negative Urine Ketones Negative Urine Blood Negative Urine Nitrite Negative Urine Bilirubin Negative Urine Urobilinogen 0.2 Ur Leukocyte Esterase Negative Urine Microscopic WBC 0-2 Ur Squamous Epith Cells 0-2 Urine Mucus Trace Adenovirus (PCR) B. pertussis DNA (PCR) B.parapertussis DNA PCR C. pneumoniae DNA (PCR) Coronavirus OC43 (PCR) Coronavirus HKU1 (PCR) Coronavirus 229E (PCR) Coronavirus NL63 (PCR) Human Metapneumovir PCR Influenza Type A (PCR) Influenza B (RT-PCR) M. pneumoniae (PCR) Parainfluenza 1 (PCR) Parainfluenza 2 (PCR) Parainfluenza 3 (PCR) Parainfluenza 4 (PCR) RSV (PCR) Entero/Rhino (PCR) SARS-CoV-2 (PCR) 03/25/21 03/27/21 03/27/21 05:50 04:58 04:58 WBC 9.03 RBC 4.38 L Hgb 12.9 L Hct 41.5 L MCV 94.7 H MCH 29.5 MCHC 31.1 L RDW Coeff of Christian[place] 13.2 Plt Count 238 Immature Gran % (Auto) 0.4 Neut % (Auto) 68.8 Lymph % (Auto) 17.9 [place] % (Auto) 5.8 Eos % (Auto) 6.2 Baso % (Auto) 0.9 Neut # (Auto) 6.2 Lymph # (Auto) 1.6 [place] # (Auto) 0.5 Eos # (Auto) 0.6 Baso # (Auto) 0.1 Immature Gran # (Auto) 0.0 Sodium 140.6 140.3 Potassium 4.21 4.19 Chloride 110.0 H 106.5 Carbon Dioxide 29.1 27.3 Anion Gap 5.71 10.69 BUN 11.6 11.2 Creatinine 1.12 H 1.05 Estimated GFR (MDRD) 67.00 73.00 BUN/Creatinine Ratio 10.35 10.66 Glucose 134.3 H 109.7 H Lactic Acid Calcium 8.20 L 8.50 Total Bilirubin 0.62 0.46 AST 19.1 26.7 ALT 11.4 14.7 Alkaline Phosphatase 68.2 72.0 Total Creatine Kinase Troponin I Total Protein 6.05 L 6.36 Albumin 3.05 L 3.25 L Globulin 3.00 3.11 Albumin/Globulin Ratio 1.01 1.04 Amylase Lipase Procalcitonin Urine Color Urine Clarity Urine pH Ur Specific [place] Urine Protein Urine Glucose (UA) Urine Ketones Urine Blood Urine Nitrite Urine Bilirubin Urine Urobilinogen Ur Leukocyte Esterase Urine Microscopic WBC Ur Squamous Epith Cells Urine Mucus Adenovirus (PCR) B. pertussis DNA (PCR) B.parapertussis DNA PCR C. pneumoniae DNA (PCR) Coronavirus OC43 (PCR) Coronavirus HKU1 (PCR) Coronavirus 229E (PCR) Coronavirus NL63 (PCR) Human Metapneumovir PCR Influenza Type A (PCR) Influenza B (RT-PCR) M. pneumoniae (PCR) Parainfluenza 1 (PCR) Parainfluenza 2 (PCR) Parainfluenza 3 (PCR) Parainfluenza 4 (PCR) RSV (PCR) Entero/Rhino (PCR) SARS-CoV-2 (PCR) CT scan abdomen and pelvis day of discharge: Previously seen inflammation affecting the splenic flexure of the colon has resolved. There is mild gaseous distension of the transverse colon which may represent a degree of ileus. No bowel obstruction. 2. Bilateral nephrolithiasis without hydronephrosis 3. Atherosclerotic disease. Left common iliac vein stent. - Education Provided to Patient and Family: Colitis Follow-ups: Dr. Buckley as planned. Discharge Disposition: Home Hospital Course: Admitted with moderate colitis, treated with IV levaquin and flagyl. He made steady improvement with rate limiting factors of diabetes and obesity. CT scan revealed colitis, resolved at time of discharge. WBC count returned to normal, renal function at baseline, tolerating his usual diet. He did have some persisting minor complaints of abdominal bloating and cramping. Blood sugar controlled, VSS, afeb at d/c. Plan: Rx cipro and flagyl for one more week. Bentyl and Gas-X as needed. Resume regular diabetic diet and activity. Resume home med's.
[2021-03-28] MEDS ORDERED: MILK OF MAGNESIA PO ONE (09:46)
== END 2021-03-28 11:07 | disposition home or self-care (01) | DRG 392 ==
LOC: ED 17:07 → MEDSURG A 20:19
PROVIDERS: ADMIT Family Medicine; ATTEND Emergency Medicine
DX: K52.9 Noninfective gastroenteritis and colitis, unspecified; E11.9 Type 2 diabetes mellitus without complications; E66.9 Obesity, unspecified; N20.0 Calculus of kidney; I70.8 Atherosclerosis of other arteries; Z20.822 Contact with and (suspected) exposure to COVID-19; Z68.41 Body mass index [BMI] 40.0-44.9, adult